=== PATIENT | male | born 1945 | race Caucasian/White ===

== ENCOUNTER 2017-09-05 09:44 | Outpatient (CLI) | payer OTHER ==
--- NOTE | 2017-09-05 19:47 | XRAY Report ---
DATE OF SERVICE: 09/05/2017 THREE VIEW LUMBAR SPINE: 09/05/2017 CLINICAL INDICATION: Pain. AP, lateral, coned-down views of the lumbar spine demonstrate moderate degenerative disk and facet disease. There is no evidence of fracture or subluxation. Mild levoscoliosis is present, likely degenerative in etiology. Surgical clips from previous cholecystectomy are noted. The bowel gas pattern is normal. IMPRESSION: Moderate degenerative changes, with mild degenerative levoscoliosis. TD: 09/05/2017 20:46
== END 2017-09-05 09:45 | disposition home or self-care (01) ==
LOC: DI 09:44
PROVIDERS: ATTEND Nurse Practitioner Family
DX: M47.896 Other spondylosis, lumbar region (principal); M41.86 Other forms of scoliosis, lumbar region
CPT/HCPCS: 72100

== ENCOUNTER 2017-09-21 09:28 | Outpatient (CLI) | payer OTHER ==
[2017-09-21] MEDS ORDERED: IOPAMIDOL-300 100 ML VIAL ONE (10:11)
[2017-09-21 10:32] LABS: CREATININE 0.8 mg/dL (0.6-1.2)
[2017-09-21] MEDS ORDERED: IOPAMIDOL-300 100 ML VIAL IVP ONE (10:51)
--- NOTE | 2017-09-21 15:58 | CT Report ---
CT OF THE ABDOMEN AND PELVIS WITH CONTRAST: 09/21/2017 CLINICAL INDICATION: Hematuria, history of bladder cancer. TECHNIQUE: Axial CT images of the abdomen and pelvis were obtained prior to and following 100 mL Isovue 300 intravenously, using split bolus technique. No previous CT is available for comparison. FINDINGS: Limited evaluation of the lung bases is unremarkable. ABDOMEN: On the unenhanced images, there is no evidence of nephrolithiasis or hydronephrosis. The kidneys demonstrate symmetric uptake and excretion of contrast, left greater than right renal cysts are present. No solid renal lesion or collecting system lesion is seen. The liver, spleen, pancreas and adrenal glands are unremarkable, allowing for phase of contrast enhancement. The patient is status post cholecystectomy. No bowel dilatation, free gas, or free fluid is present. No abdominal adenopathy is seen. PELVIS: The distal ureters are not dilated. Sigmoid diverticulosis is present, without CT evidence of diverticulitis. The appendix is seen in the right lower quadrant, and is normal in caliber. No free fluid or pelvic adenopathy is present. Osseous structures demonstrate degenerative changes. IMPRESSION: NO EVIDENT ETIOLOGY FOR PATIENT'S HEMATURIA. CONSIDER CYSTOSCOPY FOR FURTHER EVALUATION. In accordance with CT protocol optimization, one or more of the following dose reduction techniques were utilized for this exam: automated exposure control, adjustment of mA and/or KV based on patient size, or use of iterative reconstructive technique. TD: 09/21/2017 15:58
== END 2017-09-21 09:29 | disposition home or self-care (01) ==
LOC: LAB 09:28
PROVIDERS: ATTEND Nurse Practitioner Family
DX: R31.9 Hematuria, unspecified (principal); Z85.51 Personal history of malignant neoplasm of bladder
CPT/HCPCS: 36415; 74178; 82565; Q9967

== ENCOUNTER 2017-11-02 06:51 | Outpatient (CLI) | payer OTHER ==
[2017-11-02 07:13] LABS: CREATININE 0.9 mg/dL (0.6-1.2)
[2017-11-02] MEDS ORDERED: IOPAMIDOL-300 50 ML VIAL ONE (07:26)
[2017-11-02] MEDS ORDERED: IOPAMIDOL-300 100 ML VIAL ONE (07:26)
[2017-11-02] MEDS ORDERED: IOPAMIDOL-300 50 ML VIAL PO ONE (08:43)
[2017-11-02] MEDS ORDERED: IOPAMIDOL-300 100 ML VIAL IVP ONE (08:43)
--- NOTE | 2017-11-02 09:38 | CT Report ---
CT ABDOMEN AND PELVIS WITH CONTRAST: 11/02/2017 CLINICAL INDICATION: Left abdominal pain. COMPARISON: 09/21/2017. TECHNIQUE: Axial CT images of the abdomen and pelvis were obtained with 100 mL Isovue 300 intravenously as well as oral contrast. FINDINGS: Limited evaluation of the lung bases is unremarkable. ABDOMEN: The liver, spleen, pancreas and adrenal glands are unremarkable. The kidneys demonstrate cortical cysts. No nephrolithiasis or hydronephrosis is seen. The patient is status post cholecystectomy. No bowel dilatation, free gas, or free fluid is present. PELVIS: Sigmoid diverticulosis is present, without CT evidence of diverticulitis. No pelvic adenopathy or free fluid is present. Osseous structures demonstrate degenerative changes. IMPRESSION: DIVERTICULOSIS, WITHOUT CT EVIDENCE OF DIVERTICULITIS. NO EVIDENT ETIOLOGY FOR PATIENT'S LEFT-SIDED ABDOMINAL PAIN. INCIDENTAL RENAL CYSTS. CT DOSE REDUCTION STATEMENT In accordance with CT protocol optimization, one or more of the following dose reduction techniques were utilized for this exam: automated exposure control, adjustment of mA and/or KV based on patient size, or use of iterative reconstructive technique. TD: 11/02/2017 09:37
== END 2017-11-02 06:52 | disposition home or self-care (01) ==
LOC: LAB 06:51 → DI 06:52
PROVIDERS: ATTEND Nurse Practitioner Family
DX: R10.9 Unspecified abdominal pain (principal); K57.30 Diverticulosis of large intestine without perforation or abscess without bleeding
CPT/HCPCS: 36415; 74177; 82565; Q9967

== ENCOUNTER 2018-01-24 08:45 | Day surgery (SDC) | payer OTHER ==
[2018-01-24] MEDS ORDERED: LACTATED RINGERS 1,000 ML IV ONE ×2 (09:07→10:51)
[2018-01-24] MEDS ORDERED: MIDAZOLAM 2 MG/2 ML VIAL IVP ONE (10:32)
[2018-01-24] MEDS ORDERED: fentaNYL 250 MCG/5 ML VIAL IVP ONE (10:32)
[2018-01-24] MEDS ORDERED: DEXTROSE 5%-LACTATED RINGERS 500 ML IV ONE (10:33)
[2018-01-24 11:47] VITALS: BP 143/76
== END 2018-01-24 08:46 | disposition home or self-care (01) ==
LOC: SDS 08:45
PROVIDERS: ATTEND Internal Medicine
PROC: 0DBN8ZX Excision of Sigmoid Colon, Via Natural or Artificial Opening Endoscopic, Diagnostic (ICD-10-PCS; 2018-01-24)
PROC: 0DBH8ZX Excision of Cecum, Via Natural or Artificial Opening Endoscopic, Diagnostic (ICD-10-PCS; principal; 2018-01-24 10:00)
DX: Z12.11 Encounter for screening for malignant neoplasm of colon (principal); D12.5 Benign neoplasm of sigmoid colon; D12.0 Benign neoplasm of cecum; K57.30 Diverticulosis of large intestine without perforation or abscess without bleeding; K64.8 Other hemorrhoids; E11.9 Type 2 diabetes mellitus without complications; I10 Essential (primary) hypertension; G47.33 Obstructive sleep apnea (adult) (pediatric); Z79.01 Long term (current) use of anticoagulants; Z87.891 Personal history of nicotine dependence; Z79.84 Long term (current) use of oral hypoglycemic drugs
CPT/HCPCS: 45385; J3010; J7120

== ENCOUNTER 2018-02-02 08:04 | Outpatient (CLI) | payer OTHER ==
--- NOTE | 2018-02-02 12:01 | CT Report ---
Procedure Date: 02/02/2018 Accession Number: [id number] / [id number] Procedure: CT - Sinuses CPT Code: FULL RESULT: EXAM: Sinuses DATE: 02/02/2018 8:39 AM CLINICAL HISTORY: CHRONIC SINUSITIS, UNSPECIFIED COMPARISON: Head CT 08/21/2010 TECHNIQUE: Routine multi-axial CT imaging performed through the sinuses. Iodinated IV contrast: None. Reconstructions: Coronal. In accordance with CT protocol optimization, one or more of the following dose reduction techniques were utilized for this exam: automated exposure control, adjustment of mA and/or KV based on patient size, or use of iterative reconstructive technique. FINDINGS: RIGHT Frontal: Mucosal thickening. Ethmoid: Mucosal thickening. Maxillary: Mucosal thickening. Sphenoid: Mucosal thickening, with an air-fluid level. Drainage Pathways: Barkley opacification of drainage pathways. LEFT Frontal: Mucosal thickening. Ethmoid: Mucosal thickening. Maxillary: Mucosal thickening. Sphenoid: Complete opacification. Drainage Pathways: Barkley opacification of drainage pathways. Nasal Cavity: Normal. No mass or significant anatomic abnormality evident. Osseous Structures: Normal. Orbits: Unremarkable. Other: None. IMPRESSION: Pansinusitis. RADIA
== END 2018-02-02 08:05 | disposition home or self-care (01) ==
LOC: DI 08:04
PROVIDERS: ATTEND Nurse Practitioner Family
DX: J32.4 Chronic pansinusitis (principal)
CPT/HCPCS: 70486

== ENCOUNTER 2018-05-09 09:30 | Outpatient (CLI) | payer MEDICARE, OTHER | END 2018-05-09 09:31 | disposition home or self-care (01) | LOC: LAB.F 09:30 | PROVIDERS: ATTEND Family Medicine | DX: I48.91 Unspecified atrial fibrillation (principal) | CPT/HCPCS: 85610 ==

== ENCOUNTER 2018-06-08 11:14 | Outpatient (CLI) | payer MEDICARE | END 2018-06-08 11:15 | disposition home or self-care (01) | LOC: LAB.F 11:14 | PROVIDERS: ATTEND Family Medicine | DX: I48.91 Unspecified atrial fibrillation (principal) | CPT/HCPCS: 85610 ==

== ENCOUNTER 2018-12-07 12:15 | Outpatient (CLI) | payer MEDICARE, OTHER ==
--- NOTE | 2018-12-07 12:52 | XRAY Report ---
Reason: ACUTE RESPIRATORY DISTRESS Procedure Date: 12/07/2018 Accession Number: [id number] / [id number] Procedure: XR - Chest 2 View X-Ray CPT Code: 83809 FULL RESULT: EXAM: CHEST RADIOGRAPHY EXAM DATE: 12/07/2018 12:27 PM. CLINICAL HISTORY: Short of breath COMPARISON: 02/15/2013. TECHNIQUE: 2 views. FINDINGS: Lungs/Pleura: Minor scarring left base stable. Lungs otherwise clear. An azygos lobe is present. No pleural effusion. No pneumothorax. Normal volumes. Mediastinum: Heart mildly enlarged in size. Other: Degenerative change in the spine. Surgical clips upper abdomen. IMPRESSION: No acute findings. Clear lungs. RADIA
== END 2018-12-07 12:16 | disposition home or self-care (01) ==
LOC: DI 12:15
PROVIDERS: ATTEND Internal Medicine
DX: R06.03 Acute respiratory distress (principal)
CPT/HCPCS: 71046

== ENCOUNTER 2018-12-11 09:30 | Outpatient (CLI) | payer MEDICARE, OTHER ==
[2018-12-11] MEDS ORDERED: ALBUTEROL NEB 2.5 MG/3 ML INH SCH (10:00)
== END 2018-12-11 23:59 | disposition home or self-care (01) ==
LOC: RT 09:30
PROVIDERS: ATTEND Nurse Practitioner Family
DX: J45.909 Unspecified asthma, uncomplicated (principal)
CPT/HCPCS: 94060

== ENCOUNTER 2019-01-08 10:36 | Outpatient (CLI) | payer MEDICARE | END 2019-01-08 10:37 | disposition home or self-care (01) | LOC: LAB.F 10:36 | PROVIDERS: ATTEND Family Medicine | DX: I48.91 Unspecified atrial fibrillation (principal) | CPT/HCPCS: 85610 ==

== ENCOUNTER 2019-10-14 09:45 | Outpatient (CLI) | payer MEDICARE, OTHER | END 2019-10-14 09:46 | disposition home or self-care (01) | LOC: NS 09:45 | PROVIDERS: ATTEND Family Medicine | DX: Z71.3 Dietary counseling and surveillance (principal); E11.65 Type 2 diabetes mellitus with hyperglycemia | CPT/HCPCS: 97802 ==

== ENCOUNTER 2019-12-27 09:49 | Outpatient (CLI) | payer MEDICARE, OTHER ==
[2019-12-27] MEDS ORDERED: IOVERSOL 320 100 ML VIAL IVP ONE ×2 (09:59→10:54)
[2019-12-27 10:13] LABS: CREATININE 0.9 mg/dL (0.6-1.2)
--- NOTE | 2019-12-30 08:57 | CT Report ---
Reason: HISTORY OF GROSS HEMATURIA Procedure Date: 12/27/2019 Accession Number: [id number] / [id number] Procedure: CT - IVP CPT Code: Final Report FULL RESULT: EXAM: CT ABDOMEN AND PELVIS WITHOUT AND WITH CONTRAST (CT IVP) EXAM DATE: 12/27/2019 11:09 AM. CLINICAL HISTORY: Intermittent gross hematuria. History of bladder cancer. COMPARISONS: CT of the abdomen and pelvis from 11/02/2017, CT IVP from 09/21/2017. TECHNIQUE: Routine helical imaging was performed through the kidneys, ureters and bladder in the precontrast and combined postcontrast and delayed phase. IV Contrast: 100 cc Optiray 320 administered in split bolus fashion. Reconstructions: Coronal and sagittal. In accordance with CT protocol optimization, one or more of the following dose reduction techniques were utilized for this exam: automated exposure control, adjustment of mA and/or KV based on patient size, or use of iterative reconstructive technique. FINDINGS: Lung Bases: A 4 mm nodule in the right lower lobe (series 7, image 12) has not significantly changed. Mild linear opacities are present in the lung bases, most compatible with atelectasis or scarring. Liver: Unremarkable. No focal lesions are demonstrated. Gallbladder/Bile Ducts: Gallbladder is surgically absent. Caliber of the bile ducts is within normal limits. Spleen: There is a 9 mm ovoid hypoattenuating lesion in the lateral aspect of the spleen (series 7, image 15), not significantly changed and most compatible with a cyst. Spleen is otherwise unremarkable. Pancreas: Small calcification in the pancreatic head has not significantly changed. Pancreas is otherwise unremarkable. No dilation of the main pancreatic duct. Adrenal Glands: No nodules. Kidneys/Bladder: Right Kidney/Ureter: No urolithiasis or hydronephrosis. There are multiple renal cysts. This includes a 1.9 cm Bosniak 2 cyst in the medial lower pole (series 7, image 39), demonstrating thin septations. No solid renal mass demonstrated. The infundibula of the renal collecting system is not well opacified. However, there is no calyceal dilation to suggest obstructing infundibular mass. No filling defects in the opacified portions of the renal collecting system or ureter. Left Kidney/Ureter: No urolithiasis or hydronephrosis. There are multiple cysts. The largest arises exophytically from the lower pole, measuring 11.3 x 9.0 cm (series 7, image 41), previously 10.6 x 9.2 cm. No solid renal mass demonstrated. There is an area of renal parenchymal volume loss in the interpolar region, which is not significantly changed. There is a short segment of the proximal ureter, which is not well opacified (series 7, image 45). In addition, multiple infundibula are not well opacified. No filling defects in the opacified portions of the renal collecting system or ureter. Bladder: No bladder calculi demonstrated. There is mild concentric bladder wall thickening. In the right posterior bladder wall, there is suggestion of a sessile, 1.1 x 0.4 cm filling defect (series 7, image 75 and series 10, image 40), which is not significantly changed from the prior examination. This is adjacent to the prostate and may represent component of median lobe hypertrophy. No areas of definite asymmetric bladder wall thickening demonstrated. Peritoneal Cavity/Bowel: No evidence of bowel obstruction or inflammation. The appendix is within normal limits. There is diverticulosis, greatest in the sigmoid colon, without evidence for acute diverticulitis. A fat-containing umbilical hernia is present. Pelvic Organs: Bladder findings are as described above. Prostate is enlarged, measuring approximately 5.7 x 5.2 x 5.7 cm (series 7, image 82 and series 10, image 38) for an estimated volume of 88.5 cc. No pelvic adenopathy or free fluid. Vasculature: Atherosclerotic calcification of the abdominal aorta is demonstrated. No abdominal aortic aneurysm. Bones: No suspicious osseous lesion. Other: There appears to be mild stranding in the subcutaneous tissues adjacent to the umbilical hernia. IMPRESSION: 1. Concentric bladder wall thickening, which may represent sequela of chronic outflow restriction given prostatomegaly. 2. No significant change in sessile filling defect in the right posterior bladder wall since 2018. This is adjacent to the prostate and could represent component of median lobe hypertrophy. Note that bladder neoplasm cannot be excluded by CT. Given the clinical history, cystoscopy could be considered for further evaluation, if not recently performed. 3. Portions of the infundibula of bilateral renal collecting systems and a short segment of the left proximal ureter are not well opacified on the delayed phase. Could consider retrograde examination at the time of cystoscopy. Otherwise, no filling defects demonstrated elsewhere in the renal collecting systems or ureters to suggest upper tract urothelial neoplasm. 4. Benign bilateral renal cysts. No evidence of solid renal mass. 5. Mild stranding in the subcutaneous tissues around a small fat-containing umbilical hernia. Suggest correlation with clinical examination to exclude cellulitis or incarcerated hernia. RADIA
== END 2019-12-27 09:50 | disposition home or self-care (01) ==
LOC: DI 09:49
PROVIDERS: ATTEND Urology
DX: N40.0 Benign prostatic hyperplasia without lower urinary tract symptoms (principal); R31.0 Gross hematuria; N32.89 Other specified disorders of bladder; K42.9 Umbilical hernia without obstruction or gangrene; N28.1 Cyst of kidney, acquired; Z85.51 Personal history of malignant neoplasm of bladder
CPT/HCPCS: 36415; 74178; 82565; 84520; Q9967

== ENCOUNTER 2020-07-21 18:44 | Emergency (ER) | payer MEDICARE, OTHER ==
[2020-07-21] MEDS ORDERED: HYDROcod/ACETAM 5/325 MG TABLET PO STA (19:17)
--- NOTE | 2020-07-21 19:20 | ED Physician Documentation ---
History of Present Illness - Stated complaint Stated Complaint: RT ANKLE INJ - Chief complaint Chief Complaint: Trauma Ext - History obtained from History obtained from: Patient - History of Present Illness Timing: Prior to arrival - Additonal information Additional information: 74-year-old male presents emergency department for evaluation of acute right ankle pain and injury. He reports walking his dog this afternoon on a trail and slipped twisting/inverting the right ankle. He had pain with weightbearing since then and fairly significant ecchymosis on the lateral side of the ankle. No history of previous injury to this foot or ankle. He does have a history of coronary artery disease. Also has a history of atrial fibrillation. He is status post recent two-vessel CABG. He is on Plavix and a novel anticoagulant. He denies striking his head or losing consciousness. Review of Systems Constitutional: reports: Reviewed and negative Ears: reports: Reviewed and negative Nose: reports: Reviewed and negative Throat: reports: Reviewed and negative Cardiac: reports: Reviewed and negative Respiratory: reports: Reviewed and negative GI: reports: Reviewed and negative : reports: Reviewed and negative Skin: reports: Reviewed and negative Musculoskeletal: reports: Joint pain (right ankle), Joint swelling (right ankle) Neurologic: reports: Reviewed and negative PD PAST MEDICAL HISTORY - Past Medical History Cardiovascular: Hypertension, Coronary artery disease, Arrhythmia, Other Respiratory: Asthma, Sleep apnea, Other Endocrine/Autoimmune: Type 2 diabetes : Other - Past Surgical History Past Surgical History: Yes General: Cholecystectomy Ortho: Arthroscopic surgery Cardiovascular: Coronary stent HEENT: Other - Present Medications Home Medications: Ambulatory Orders Medication Instructions Recorded Confirmed Amlodipine Besylate 10 mg PO DAILY 02/15/13 07/21/20 Doxazosin [Cardura] 4 mg PO DAILY 02/15/13 07/21/20 Metformin HCl 1,000 mg PO BID 02/15/13 07/21/20 Albuterol [Ventolin Hfa] 2 puffs INH Q4H PRN #1 inhaler 01/10/14 07/21/20 Beclomethasone 80 Mcg [Qvar 80] 100 puffs INH BID 01/23/18 07/21/20 Cholecalciferol (Vitamin D3) 2,000 unit PO DAILY 01/23/18 07/21/20 [Vitamin D] Fluticasone Propionate [Flovent 50 mcg IH BID 01/23/18 07/21/20 Diskus] LORazepam [Lorazepam] 0.5 mg PO BID PRN 01/23/18 07/21/20 Metoprolol Tartrate 25 mg PO BID 01/23/18 07/21/20 Potassium Citrate [Potassium 5 meq PO DAILY 01/23/18 07/21/20 Citrate ER] lisinopriL [Lisinopril] 20 mg PO DAILY 01/23/18 07/21/20 Apixaban [Eliquis] 5 mg PO BID 07/21/20 07/21/20 Clopidogrel [Plavix] 75 mg PO DAILY 07/21/20 07/21/20 Flunisolide 2 sprays BID 07/21/20 07/21/20 Hydrocodone/Acetaminophen [[place]wood 1 each PO TID PRN #15 tablet 07/21/20 5-325 Tablet] Insulin Glargine [Lantus Solostar] 10 unit HS 07/21/20 07/21/20 Magnesium Oxide [Magnesium] 100 mg PO BID 07/21/20 07/21/20 Prednisone [Corine] 8 mg PO PRN 07/21/20 - Allergies Allergies/Adverse Reactions: Allergies Allergy/AdvReac Type Severity Reaction Status Date / Time zolpidem Allergy Anaphylaxis Verified 07/21/20 18:50 licorice Allergy Severe Anaphylaxis Uncoded 01/23/18 14:15 glycyrrhiza Allergy Anaphylaxis Uncoded 01/23/18 14:15 - Social History Does the pt smoke?: No Smoking Status: Former smoker Does the pt drink ETOH?: Yes Does the pt have substance abuse?: No - Immunizations Immunizations are current?: No Immunizations: TDAP >10years/unknown PD ED PE EXPANDED - General General: Alert, No acute distress, Well developed/nourished - Extremities Extremities: Right ankle (Significant swelling and ecchymosis lateral malleolus without deformity. Limited forward flexion and extension secondary to pain. Most of the pain is proximal to the malleolus. Distal DP pulse 2+. Brisk cap refill.) Results - Vitals Vitals: Vital Signs - 24 hr 07/21/20 18:50 Temperature 37.2 C Heart Rate 81 Respiratory 18 Rate Blood Pressure 170/82 H O2 Saturation 97 Oxygen O2 Source Room air - Rads (name of study) right ankle Radiology: EMP read indepedently (Minimally displaced distal fibular fracture) PD MEDICAL DECISION MAKING - ED course Complexity details: reviewed results, re-evaluated patient, considered differential, d/w patient ED course: 74-year-old male presents the emergency department for evaluation of acute right ankle injury after an inversion injury and fall this afternoon. He does have a history of coronary artery disease status post recent CABG as well as atrial fibrillation on Plavix and Eliquis. He did not strike his head or lose consciousness. The x-ray of the right ankle does show a mildly displaced right fibular fracture. This gentleman was placed in a 3 sided short leg splint appropriate return precautions with regard to the splint being too tight or concerns of infection were discussed. This gentleman was referred to orthopedics upon discharge and given crutches to aid in ambulation. He did have safe gait with the crutches. Departure - Departure Disposition: 01 Home, Self Care Clinical Impression: Right fibular fracture Qualifiers: Encounter type: initial encounter Fibula location: distal physis (incl. [place]) Fracture alignment: displaced Qualified Code(s): S89.301A - Unspecified physeal fracture of lower end of right fibula, initial encounter for closed fracture Condition: Stable Record reviewed to determine appropriate education?: Yes Instructions: ED Fx Lower Ext Follow-Up: [facility] [Provider Group] - Within 1 week Abram Guardado MD [Primary Care Provider] - Prescriptions: Hydrocodone/Acetaminophen [Pinewood 5-325 Tablet] 1 each PO TID PRN #15 tablet PRN Reason: Pain Comments: Mikel unfortunately the x-ray does show that you have a fibula fracture on your right lower leg. We have placed you in a temporary splint. The splint cannot get wet. If it does get wet please return to the emergency department to have it replaced. Also return to the emergency department for a splint recheck if you find that your feet are cold to the touch, lose sensation or you develop any fevers. I have prescribed some hydrocodone to help with pain at home. Please elevate this leg as much as you can to help reduce swelling and in turn pain. The hydrocodone will cause constipation so please increase your water intake or begin taking MiraLAX. Please call the orthopedics department tomorrow to schedule follow-up within the next 7 to 10 days. I would also like you to schedule follow-up with Dr. Guardado. He will be helpful in the long-term with regards to pain management and referral to physical therapy.
--- NOTE | 2020-07-21 19:43 | XRAY Report ---
PROCEDURE: Ankle 3 View RT INDICATIONS: inversion injury; swelling laterally TECHNIQUE: 3 views of the ankle were acquired. COMPARISON: None FINDINGS: Bones: There is fragmentation at the distal medial malleolus appearing chronic. There is a minimally displaced distal fibular fracture. Ankle mortise is normally aligned. No suspicious bony lesions. Soft tissues: Lateral malleolar soft tissue edema is present.. Achilles tendon appears normal. IMPRESSION: Minimally displaced distal fibular fracture with surrounding edema. Reviewed by: Sharda Dasilva MD on 07/21/2020 7:42 PM PST Approved by: Sharda Dasilva MD on 07/21/2020 7:42 PM PST Station ID: [id number]
[2020-07-21 20:50] VITALS: BP 148/98
== END 2020-07-21 20:50 | disposition home or self-care (01) ==
LOC: ED 18:44
DX: S89.301A Unspecified physeal fracture of lower end of right fibula, initial encounter for closed fracture (principal); X50.1XXA Overexertion from prolonged static or awkward postures, initial encounter; Y93.31 Activity, mountain climbing, rock climbing and wall climbing; Y92.838 Other recreation area as the place of occurrence of the external cause; I48.91 Unspecified atrial fibrillation; Z79.01 Long term (current) use of anticoagulants; Z95.1 Presence of aortocoronary bypass graft; I10 Essential (primary) hypertension; E11.9 Type 2 diabetes mellitus without complications; Z79.4 Long term (current) use of insulin; Z87.891 Personal history of nicotine dependence
CPT/HCPCS: 73610; 99283; A9270

== ENCOUNTER 2020-08-06 17:32 | Outpatient (CLI) | payer MEDICARE, OTHER ==
--- NOTE | 2020-08-06 11:58 | XRAY Report ---
PROCEDURE: Ankle 3 View RT INDICATIONS: NONDISPLACED BIMALLEOLAR FX OF R LOWER LEG TECHNIQUE: 3 views of the ankle were acquired. COMPARISON: 07/21/2020 FINDINGS: Bones: Mildly displaced oblique fracture of the distal fibula. Mildly displaced fracture of the media l malleolus. No change in alignment. Ankle mortise is normally aligned. No suspicious bony lesions. Soft tissues: No tibiotalar joint effusion. Achilles tendon appears normal. IMPRESSION: No change in bimalleolar ankle fracture. Reviewed by: Phan John MD on 08/06/2020 11:57 AM PST Approved by: Phan John MD on 08/06/2020 11:57 AM PST Station ID: [id number]
== END 2020-08-06 23:59 | disposition home or self-care (01) ==
LOC: DI.N 17:32
PROVIDERS: ATTEND Orthopaedic Surgery
DX: S82.844A Nondisplaced bimalleolar fracture of right lower leg, initial encounter for closed fracture (principal)

== ENCOUNTER 2020-08-31 08:14 | Outpatient (CLI) | payer MEDICARE, OTHER ==
--- NOTE | 2020-08-31 14:33 | XRAY Report ---
PROCEDURE: Ankle 3 View RT INDICATIONS: NONDISPLACED BIMALLEOLAR FX OF R LOWER LEG TECHNIQUE: 3 views of the ankle were acquired. COMPARISON: 08/06/2020 FINDINGS: Bones: There is interval healing at patient's known nondisplaced distal fibular shaft/lateral malleol us oblique fracture site. Patient's no medial malleolus fracture is again seen in not significantly c hanged. No new fracture or dislocation. Ankle mortise is normally aligned. No suspicious bony lesion s. Soft tissues: No tibiotalar joint effusion. Achilles tendon appears normal. IMPRESSION: Interval further healing bimalleolar fracture site with stable and anatomic ankle alignm ent. Reviewed by: Fermin Ramirez MD on 08/31/2020 2:31 PM PST Approved by: Fermin Ramirez MD on 08/31/2020 2:31 PM PST Station ID: [id number]
== END 2020-08-31 23:59 | disposition home or self-care (01) ==
LOC: DI.N 08:14
PROVIDERS: ATTEND Orthopaedic Surgery
DX: S82.841D Displaced bimalleolar fracture of right lower leg, subsequent encounter for closed fracture with routine healing (principal)

== ENCOUNTER 2020-09-11 13:52 | Outpatient (CLI) | payer OTHER ==
--- NOTE | 2020-09-11 15:41 | CT Report ---
PROCEDURE: HEAD WO INDICATIONS: ABN GAIT AND MOBILITY TECHNIQUE: Noncontrast 4.5 mm thick angled axial sections acquired from the foramen magnum to the vertex. For r adiation dose reduction, the following was used: automated exposure control, adjustment of mA and/or kV according to patient size. COMPARISON: None. FINDINGS: Image quality: Excellent. CSF spaces: Basal cisterns are patent. No extra-axial fluid collections. Ventricles are normal in size and shape. Brain: No midline shift. No intracranial masses or hemorrhage. Bautista-white matter interface is norm al. Skull and face: Calvarium and visualized facial bones are intact, without suspicious lesions. Severe bilateral maxillary sinus disease. Bilateral sphenoid sinus disease, with possibly acute appea norma also noted. There is diffuse ethmoid air cell mucosal thickening. The mastoid air cells appear grossly clear. IMPRESSION: Severe bilateral paranasal sinusitis. CT appearance of the sphenoid sinuses raise the possibility of acute sinus disease. No acute intracranial process. Reviewed by: Kar Mcfarland MD on 09/11/2020 3:40 PM PST Approved by: Kar Mcfarland MD on 09/11/2020 3:40 PM PST Station ID: [id number]
== END 2020-09-11 13:53 | disposition home or self-care (01) ==
LOC: DI 13:52
PROVIDERS: ATTEND Nurse Practitioner Family
DX: R26.89 Other abnormalities of gait and mobility (principal); J32.9 Chronic sinusitis, unspecified

== ENCOUNTER 2020-09-26 06:53 | Outpatient (CLI) | payer OTHER ==
--- NOTE | 2020-09-26 09:34 | Ultrasound Report ---
PROCEDURE: Carotid Doppler Complete INDICATIONS: R HEMIPARESIS TECHNIQUE: Color and pulse Doppler interrogation was performed of both carotid systems, with image documentation and velocity measurements. COMPARISON: None. FINDINGS: Right side: Brachial blood pressure: 195/97 mm Hg. Common carotid artery peak systolic velocity: 85.4 cm/sec. Internal carotid artery peak systolic velocity: 59.2 cm/sec. Internal carotid artery end diastolic velocity: 13.1 cm/sec. External carotid artery peak systolic velocity: 112.8 cm/sec. ICA/CCA peak systolic ratio: 0.6 . Bautista scale imaging description: Mild calcified plaque at artery. Percent internal carotid artery stenosis: Mild, less than 50% . Vertebral artery: Flow direction is antegrade. Left side: Brachial blood pressure: 181/94 mm Hg. Common carotid artery peak systolic velocity: 67.2 cm/sec. Internal carotid artery peak systolic velocity: 74.6 cm/sec. Internal carotid artery end diastolic velocity: 19.9 cm/sec. External carotid artery peak systolic velocity: 83.7 cm/sec. ICA/CCA peak systolic ratio: 1.1 . Bautista scale imaging description: Mild calcified plaque, proximal internal carotid artery. Percent internal carotid artery stenosis: Mild, less than 50% stenosis . Vertebral artery: Flow direction is antegrade. IMPRESSION: Mild, less than 50% bilateral internal carotid artery stenosis. The estimate of stenosis included in the report of the imaging study was calculated using the NASCET method Reviewed by: Geovanny Bowling MD on 09/26/2020 9:32 AM PST Approved by: Geovanny Bowling MD on 09/26/2020 9:32 AM PST Station ID: [id number]
== END 2020-09-26 06:54 | disposition home or self-care (01) ==
LOC: DI 06:53
PROVIDERS: ATTEND Family Medicine
DX: G81.90 Hemiplegia, unspecified affecting unspecified side (principal)
CPT/HCPCS: 93880

== ENCOUNTER 2020-10-12 07:00 | Outpatient (CLI) | payer OTHER ==
--- NOTE | 2020-10-12 11:55 | XRAY Report ---
PROCEDURE: Ankle 3 View RT INDICATIONS: NONDISPLACED BIMALLEOLAR FX OF R LOWER LEG TECHNIQUE: 3 views of the ankle were acquired. COMPARISON: 08/31/2020, 08/06/2020, 07/21/2020. FINDINGS: Unchanged alignment of the lateral malleolus fracture.Alignment of the medial malleolus also appears unchanged. Tibiotalar spurring and sclerosis is present. Plantar posterior calcaneal spur. Scattered vascular calcifications. IMPRESSION: Unchanged alignment. Reviewed by: Kar Mcfarland MD on 10/12/2020 11:54 AM PST Approved by: Kar Mcfarland MD on 10/12/2020 11:54 AM PST Station ID: [id number]
== END 2020-10-12 23:59 | disposition home or self-care (01) ==
LOC: DI.N 07:00
PROVIDERS: ATTEND Orthopaedic Surgery
DX: S82.844A Nondisplaced bimalleolar fracture of right lower leg, initial encounter for closed fracture (principal)

== ENCOUNTER 2020-12-08 14:56 | Outpatient (CLI) | payer MEDICARE ==
[2020-12-08] MEDS ORDERED: GADOBUTROL 10 MMOL/10 ML VIAL ONE (15:24)
[2020-12-08] MEDS ORDERED: GADOBUTROL 10 MMOL/10 ML VIAL IVP ONE (17:28)
--- NOTE | 2020-12-08 17:28 | MRI Report ---
PROCEDURE: Brain W/WO INDICATIONS: PUPIL SPARINGTHIRD NERVE PALSY RIGHT EYE CONTRAST: IV CONTRAST: Gadavist ml: 9.5 TECHNIQUE: Noncontrast axial T1 spin echo, axial T2 fast spin echo, sagittal and axial FLAIR, coronal T2 fast sp in echo, axial gradient echo, axial diffusion and ADC through the brain. After the administration of contrast, axial and coronal T1 spin echo with fat saturation through the brain. COMPARISON: Correlation is made with the prior head CT, 09/11/2020. Correlation is also made with repo rt only (no images) from prior brain MRI 09/27/2010. FINDINGS: Image quality: Excellent. CSF spaces: Basal cisterns are patent. No extra-axial fluid collections. Ventricles are normal in size and shape. Brain: In this patient with this given history, scrutiny is given to the skull base within the regio n of the 3rd cranial nerve. To the limits of this standard protocol study, no significant abnormality can be seen. No masses or abnormal enhancement can be seen. No midline shift. No intracranial bleeds or masses. No abnormal intracranial enhancement. There is cerebral volume loss for age. There is periventricular white matter chronic small vessel ischemic c hange. The brainstem appears normal. Diffusion-weighted images demonstrate no acute ischemic insult s. No chronic ischemic insults. Normal intravascular flow voids are present. Skull and face: Calvarial marrow is normal in signal. Orbits appear normal. Sinuses: At least moderate mucosal thickening is seen within the ethmoid air cells. Moderate to promi nent mucosal thickening is seen within the frontal sinuses. There is complete opacification of the sp henoid sinuses. Moderate to prominent mucosal thickening is seen within the frontal sinuses. The medi al garcía of the maxillary sinuses and the uncinate processes have been removed. Nasal polyps can be seen. No significant abnormal fluid can be seen within the mastoid air cells or w ithin the middle ear cavities. IMPRESSION: No imaging explanation is found for the patient's presenting symptoms. Note is made of prominent paranasal sinus disease, with prior surgery and apparent underlying nasal p olyp disease. Reviewed by: Joe Vanessa MD on 12/08/2020 4:27 PM AKCHANI Approved by: Joe Vanessa MD on 12/08/2020 4:27 PM AKDT Station ID: [id number]
== END 2020-12-08 14:57 | disposition home or self-care (01) ==
LOC: DI 14:56
PROVIDERS: ATTEND Ophthalmology
DX: H49.01 Third [oculomotor] nerve palsy, right eye (principal); E78.5 Hyperlipidemia, unspecified
CPT/HCPCS: 70553; A9585; 36415; 82565

== ENCOUNTER 2020-12-08 15:07 | Outpatient (CLI) | payer MEDICARE, OTHER | END 2020-12-08 15:08 | disposition home or self-care (01) | LOC: LAB 15:07 | PROVIDERS: ATTEND Ophthalmology | DX: H49.01 Third [oculomotor] nerve palsy, right eye (principal) | CPT/HCPCS: 36415; 82565 ==

== ENCOUNTER 2021-01-01 10:45 | Outpatient (CLI) | payer MEDICARE, OTHER | END 2021-01-01 10:46 | disposition home or self-care (01) | LOC: LAB 10:45 | PROVIDERS: ATTEND Ophthalmology | DX: Z01.812 Encounter for preprocedural laboratory examination (principal); H25.11 Age-related nuclear cataract, right eye; E11.9 Type 2 diabetes mellitus without complications; Z79.4 Long term (current) use of insulin; Z20.822 Contact with and (suspected) exposure to COVID-19 ==

== ENCOUNTER 2021-01-07 06:14 | Day surgery (SDC) | payer MEDICARE, OTHER ==
[2021-01-07] MEDS ORDERED: KETOROLAC 0.45% OPHTH DROPS ONE (06:24)
[2021-01-07] MEDS ORDERED: PROPARACAINE 0.5% OPHTH DROPS 15 ML ONE (06:24)
[2021-01-07] MEDS ORDERED: LACTATED RINGERS 500 ML IV ONE ×2 (06:25→07:50)
[2021-01-07] MEDS ORDERED: CYCLOPENTOLATE 2% OPHTH DROPS 2 ML RIGHTEYE ONE (06:50)
[2021-01-07] MEDS ORDERED: PHENYLEPHRINE 2.5% OPHTH 2 ML DROPS RIGHTEYE ONE (06:50)
[2021-01-07] MEDS ORDERED: TRIAMCIN/MOXIFLOX OPHTHALMIC 0.6 ML VIAL IO ONE ×2 (06:59→09:49)
[2021-01-07] MEDS ORDERED: EPINEPHrine 1 MG/ML AMP ONE (06:59)
[2021-01-07] MEDS ORDERED: MIDAZOLAM 2 MG/2 ML VIAL ONE (06:59)
[2021-01-07] MEDS ORDERED: VANCOMYCIN OPHTHALMI 8MG/0.8ML 8 MG/0.8 ML SYRINGE IO ONE ×2 (07:00→09:50)
[2021-01-07] MEDS ORDERED: BSS/LIDOCAINE/EPINEPHRINE 1 ML SYRINGE ONE (07:00)
[2021-01-07] MEDS ORDERED: TIMOLOL 0.5% OPHTH DROPS ONE (07:00)
[2021-01-07] MEDS ORDERED: BRIMONIDINE 0.2% OPHTH DROPS 5 ML ONE (07:00)
--- NOTE | 2021-01-07 07:03 | ANESTHESIA ---
Pre-Anesthesia VS, & Labs - Diagnosis right eye cataract - Procedure right CATIOL Vital Signs: Temp Pulse Resp BP Pulse Ox 36.5 C 85 14 169/111 H 96 01/07/21 06:29 01/07/21 06:29 01/07/21 06:29 01/07/21 06:29 01/07/21 06:29 Height: 5 ft 10 in Weight (kg): 101 kg Body Mass Index: 31.9 BMI Classification: Obese - NPO >8 hours - Lab Results Lab results reviewed: Yes Home Medications and Allergies Home Medications: Ambulatory Orders Furosemide [Lasix] 20 mg PO DAILY 01/01/21 Amlodipine Besylate 10 mg PO DAILY 02/15/13 Doxazosin [Cardura] 4 mg PO DAILY 02/15/13 Metformin HCl 1,000 mg PO BID 02/15/13 Beclomethasone 80 Mcg [Qvar 80] 100 puffs INH BID 01/23/18 Cholecalciferol (Vitamin D3) [Vitamin D] 2,000 unit PO DAILY 01/23/18 LORazepam [Lorazepam] 0.5 mg PO BID PRN 01/23/18 Metoprolol Tartrate 25 mg PO BID 01/23/18 Potassium Citrate [Potassium Citrate ER] 5 meq PO DAILY 01/23/18 lisinopriL [Lisinopril] 20 mg PO DAILY 01/23/18 Apixaban [Eliquis] 5 mg PO BID 07/21/20 Clopidogrel [Plavix] 75 mg PO DAILY 07/21/20 Flunisolide 2 sprays BID 07/21/20 Insulin Glargine [Lantus Solostar] 25 unit SQ HS 07/21/20 Magnesium Oxide [Magnesium] 100 mg PO BID 07/21/20 Prednisone [Corine] 8 mg PO DAILY 07/21/20 Furosemide [Lasix] 20 mg PO DAILY 01/01/21 Allergies/Adverse Reactions: Allergies Allergy/AdvReac Type Severity Reaction Status Date / Time plague vaccine Allergy extreme Verified 01/01/21 10:31 high fever zolpidem Allergy Anaphylaxis Verified 07/21/20 18:50 licorice Allergy Severe Anaphylaxis Uncoded 01/23/18 14:15 glycyrrhiza Allergy Anaphylaxis Uncoded 01/23/18 14:15 Anes History & Medical History - Anesthetic History Anesthesia Complications: reports: No previous complications Family history of Anesthesia Complications: Denies Family history of Malignant Hyperthermia: Denies - Medical History Cardiovascular: reports: Hypertension, Coronary artery disease, Atrial fibrillation, Arrhythmia, Other Pulmonary: reports: Asthma, Shortness of breath, Sleep apnea, Other Gastrointestinal: reports: Other Urinary: reports: Other Musculoskeletal: reports: Osteoarthritis Endocrine/Autoimmune: reports: Type 2 diabetes Skin: reports: Other Smoking Status: Former smoker - Surgical History General: reports: Cholecystectomy Eyes Ears Nose Throat (EENT): reports: Other Cardiothoracic: reports: CABG, Coronary stent Urologic: reports: Bladder surgery Orthopedic: reports: Arthroscopic surgery Exam General: Alert, Oriented x3, Cooperative, No acute distress Dental: WNL Mouth Openin Fingerbreadth Neck Mobility: Normal Mallampati classification: II Plan Anesthesia Type: MAC Consent for Procedure(s) Verified and Reviewed: Yes Code Status: Attempt Resuscitation ASA classification: 3-Severe systemic disease Is this case an emergency?: No
--- NOTE | 2021-01-07 07:59 | OPERATIVE REPORT ---
Operative Report - Other Other Information/Narrative: Date of Surgery: 01/07/21 Preop Dx: Complex, visually significant cataract right eye. Complex due to small pupil requiring mechanical dilation using a Malyugin ring. This was the first cataract surgery. Postop Dx: Same Procedure: Phacoemulsification with posterior chamber intraocular lens implant right eye Surgeon: Dr. Omar Conner Anesthesia: Monitored anesthesia care Complications: None Operative Indications: This is a 75-year-old M with progressive vision loss in the right eye due to 2+ nuclear sclerotic cataract. Best corrected visual acuity was 20/30 with glare to 20/150 vision in the right eye. Indications for surgery were: - Difficulty seeing words on a computer screen - Difficulty reading - Difficulty seeing words, closed captions, or game scores on TV - Difficulty seeing street signs - Difficulty driving at night because of headlights from other vehicles - Difficulty with glare or bright lights in any situation - Decreased acuity with firearms The patient was consented at length concerning the risks and benefits of cataract surgery after which the patient expressed a desire to proceed with surgery. Operative Procedure: The patient was taken into OR#3 and placed under monitored anesthesia care. A surgical time-out was conducted confirming correct patient, correct procedure, and correct surgical site. The patient was given topical anesthesia and then prepped and draped in the usual sterile fashion. The eye was entered at the 6 and 3 oclock positions. Intracameral Shugarcaine was injected into the anterior chamber followed by a dispersive viscoelastic. A Malyugin ring was injected into the anterior chamber and engaged with the pupillary margin at four points to expand the pupil. A continuous-tear curvilinear capsulorhexis was performed. The nucleus was hydrodissected and phacoemulsified. The cortex was evacuated using automated infusion and aspiration. A cohesive viscoelastic was injected into the capsular bag and a 18.5 diopter intraocular lens was inserted into the bag. The Malyugin ring was disengaged from the pupillary margin and removed from the anterior chamber. Infusion and aspiration were used to evacuate the viscoelastic materials from the eye. The wounds were hydrated and the eye inflated to physiologic pressure using balanced salt solution. Approximately 0.25ml of a mixture of triamcinolone and moxifloxacin was injected trans-sclerally into the vitreous in the inferotemporal quadrant using a 30 gauge cannula. An additional 0.25ml of a mixture of triamcinolone, moxifloxacin, and vancomycin was injected subconjunctivally in the superior quadrant for infection and inflammation prophylaxis. Wound integrity was checked with Weck-Kathi sponges. The patient was taken from the operating room in good condition and given post-op instructions.
[2021-01-07 08:00] VITALS: BP 181/100
[2021-01-07] MEDS ORDERED: BRIMONIDINE 0.2% OPHTH DROPS 5 ML OPTH ONE (09:48)
[2021-01-07] MEDS ORDERED: EPINEPHrine 1 MG/ML AMP IR ONE (09:48)
[2021-01-07] MEDS ORDERED: TIMOLOL 0.5% OPHTH DROPS OPTH ONE (09:49)
[2021-01-07] MEDS ORDERED: CHONDR SULF/HYALURONATE SYRINGE IO ONE (09:49)
[2021-01-07] MEDS ORDERED: BSS/LIDOCAINE/EPINEPHRINE 1 ML SYRINGE IO ONE (09:49)
[2021-01-07] MEDS ORDERED: PROPARACAINE 0.5% OPHTH DROPS 15 ML EACHEYE ONE (09:50)
--- NOTE | 2021-01-07 12:46 | ANESTHESIA POST OP EVALUATION ---
Anesthesia Post Eval - Post Anesthesia Eval Vitals: Last Vital Signs Temp 36.7 C 01/07/21 07:47 Pulse 60 01/07/21 07:59 Resp 18 01/07/21 07:59 BP 181/100 H 01/07/21 07:59 Pulse Ox 96 01/07/21 07:59 CV Function Including HR & BP: Stable Pain Control: Satisfactory Nausea & Vomiting: Negative Mental Status: Baseline Respiratory Status: Airway Patent Hydration Status: Satisfactory Anesthesia Complications: None
== END 2021-01-07 06:15 | disposition home or self-care (01) ==
LOC: SDS 06:14
PROVIDERS: ATTEND Ophthalmology
DX: E11.36 Type 2 diabetes mellitus with diabetic cataract (principal); H25.11 Age-related nuclear cataract, right eye; G47.33 Obstructive sleep apnea (adult) (pediatric); N40.0 Benign prostatic hyperplasia without lower urinary tract symptoms; Z79.899 Other long term (current) drug therapy; E66.9 Obesity, unspecified; Z68.31 Body mass index [BMI] 31.0-31.9, adult; Z87.891 Personal history of nicotine dependence; Z79.4 Long term (current) use of insulin; I25.10 Atherosclerotic heart disease of native coronary artery without angina pectoris
CPT/HCPCS: 66982; A9270; J3490; J7120

== ENCOUNTER 2021-03-26 09:20 | Emergency (ER) | payer MEDICARE, OTHER ==
--- NOTE | 2021-03-26 10:06 | ED Physician Documentation ---
PD HPI Fall - Stated complaint Stated Complaint: GLF - BODY PX - Chief complaint Chief Complaint: General - History obtained from History obtained from: Patient, Family - History of Present Illness Mechanism of injury: Syncope Fall distance: Standing position Where injury occurred: Home Timing - onset: How many days ago (2) Injury(ies) location: Chest, Back Quality of pain: Pain Associated symptoms: AMS. No: Seizures, Ear drainage, Nasal drainage, Neck pain, Weakness, Paresthesias, Dyspnea, Nausea / vomiting, Hematemesis, Abdominal distension Symptoms improve with: Rest Worsens with: Movement, Palpation Contributing factors: Anticoagulated Similar symptoms before: Diagnosis (fall contusion ankle fracture.) Recently seen: Not recently seen - Additional information Additional information: 75-year-old male with a history of coronary artery disease was in his home 3 nights ago when he went to go to the bathroom he has a lapse of memory for exactly what happened his was in the bathroom he called her into the bathroom and he had a syncopal episode falling against the wall. He denies any chest pain associated with this but has no real recollection of the incident itself or the time surrounding it. Today he has come to the emergency department with persistence of right-sided chest wall pain. Review of Systems Constitutional: denies: Fever Eyes: denies: Decreased vision Ears: denies: Ear pain Nose: denies: Congestion Throat: denies: Sore throat Cardiac: reports: Chest pain / pressure. denies: Palpitations Respiratory: denies: Dyspnea, Cough GI: denies: Abdominal Pain, Nausea, Vomiting, Diarrhea : denies: Dysuria, Frequency Skin: denies: Rash Musculoskeletal: reports: Back pain. denies: Neck pain, Extremity pain Neurologic: reports: Confused. denies: Generalized weakness, Focal weakness, Numbness PD PAST MEDICAL HISTORY - Past Medical History Cardiovascular: Hypertension, Coronary artery disease, Atrial fibrillation, Arrhythmia, Other Respiratory: Asthma, Shortness of breath, Sleep apnea, Other Endocrine/Autoimmune: Type 2 diabetes GI: Other : Other HEENT: Chronic vision loss, Chronic hearing loss, Other Psych: Anxiety, Panic attacks, Post traumatic stress disorder Musculoskeletal: Osteoarthritis Derm: Other - Past Surgical History Past Surgical History: Yes General: Cholecystectomy Ortho: Arthroscopic surgery Cardiovascular: CABG, Coronary stent HEENT: Other - Present Medications Home Medications: Ambulatory Orders Medication Instructions Recorded Confirmed Amlodipine Besylate 10 mg PO DAILY 02/15/13 03/26/21 Doxazosin [Cardura] 4 mg PO DAILY 02/15/13 03/26/21 Metformin HCl 1,000 mg PO BID 02/15/13 03/26/21 Albuterol [Ventolin Hfa] 2 puffs INH Q4H PRN #1 inhaler 01/10/14 03/26/21 Cholecalciferol (Vitamin D3) 2,000 unit PO DAILY 01/23/18 03/26/21 [Vitamin D] LORazepam [Lorazepam] 0.5 mg PO BID PRN 01/23/18 03/26/21 Metoprolol Tartrate 25 mg PO BID 01/23/18 03/26/21 Potassium Citrate [Potassium 5 meq PO DAILY 01/23/18 03/26/21 Citrate ER] lisinopriL [Lisinopril] 20 mg PO DAILY 01/23/18 03/26/21 Apixaban [Eliquis] 5 mg PO BID 07/21/20 03/26/21 Clopidogrel [Plavix] 75 mg PO DAILY 07/21/20 03/26/21 Flunisolide 2 sprays BID 07/21/20 03/26/21 Insulin Glargine [Lantus Solostar] 25 unit SQ HS 07/21/20 03/26/21 Magnesium Oxide [Magnesium] 100 mg PO HS 07/21/20 03/26/21 Prednisone [Corine] 10 mg PO DAILY 07/21/20 03/26/21 Furosemide [Lasix] 20 mg PO DAILY 01/01/21 03/26/21 HYDROcod/ACETAM 5/325 [[place] 5/325] 1 - 2 tablet PO Q6H PRN #14 tablet 03/26/21 - Allergies Allergies/Adverse Reactions: Allergies Allergy/AdvReac Type Severity Reaction Status Date / Time plague vaccine Allergy extreme Verified 03/26/21 09:43 high fever zolpidem Allergy Anaphylaxis Verified 03/26/21 09:43 licorice Allergy Severe Anaphylaxis Uncoded 03/26/21 09:43 glycyrrhiza Allergy Anaphylaxis Uncoded 03/26/21 09:43 - Social History Does the pt smoke?: No Smoking Status: Former smoker Does the pt drink ETOH?: Yes Does the pt have substance abuse?: No - Immunizations Immunizations are current?: No Immunizations: TDAP >10years/unknown PD ED PE NORMAL - Vitals Vital signs reviewed: Yes - General General: Alert and oriented X 3, No acute distress, Well developed/nourished - HEENT HEENT: Atraumatic, PERRL, EOMI - Neck Neck: Supple, no meningeal sign, No bony TTP - Cardiac Cardiac: RRR, No murmur - Respiratory Respiratory: No respiratory distress, Other (diminished breath sounds with tenderness to the right posterior rib cage lower. ) - Abdomen Abdomen: Soft, Non tender - Back Back: No CVA TTP, No spinal TTP - Derm Derm: Normal color, Warm and dry, No rash - Extremities Extremities: No deformity, No edema - Neuro Neuro: Alert and oriented X 3, needle control cheniller 2-12 intact, No motor deficit, No sensory deficit, Normal speech Eye Opening: Spontaneous Motor: Obeys Commands Verbal: Oriented GCS Score: 15 - Psych Psych: Normal mood, Normal affect Results - Vitals Vitals: Vital Signs - 24 hr 03/26/21 03/26/21 03/26/21 09:39 10:00 10:30 Temperature 36.9 C Heart Rate 101 H 67 66 Respiratory 16 23 20 Rate Blood Pressure 162/106 H 155/77 H 170/70 H O2 Saturation 98 97 97 03/26/21 03/26/21 03/26/21 11:48 12:29 12:30 Temperature Heart Rate 55 L 61 63 Respiratory 18 13 17 Rate Blood Pressure 146/83 H 160/90 H 164/86 H O2 Saturation 94 96 95 03/26/21 03/26/21 03/26/21 12:51 14:18 17:17 Temperature Heart Rate 77 74 93 Respiratory 17 19 18 Rate Blood Pressure 156/105 H 194/107 H 180/112 H O2 Saturation 95 98 98 03/26/21 18:05 Temperature Heart Rate 117 H Respiratory 21 Rate Blood Pressure 197/114 H O2 Saturation 96 Oxygen O2 Source Room air - EKG (time done) 1013 Rate: Rate (enter#) (56) Rhythm: Atrial fibrillation QRS: LVH Ischemia: Q waves Compare to prior EKG: Changed from prior EKG (SPT 01-10-2014 the rhythm has changed to afib and LVH has developed. ) Computer interpretation: Agree with computer - Labs Labs: Laboratory Tests 03/26/21 03/26/21 03/26/21 09:40 09:46 09:46 WBC 10.5 RBC 5.09 Hgb 16.6 Hct 48.2 MCV 94.7 H MCH 32.6 H MCHC 34.4 RDW 12.9 Plt Count 213 MPV 10.0 Neut # (Auto) 8.7 H Lymph # (Auto) 1.0 L Pierce # (Auto) 0.7 Eos # (Auto) 0.1 Baso # (Auto) 0.0 Absolute Nucleated RBC 0.00 Nucleated RBC % 0.0 Sodium 140 Potassium 3.3 L Chloride 99 L Carbon Dioxide 30 Anion Gap 11.0 BUN 34 H Creatinine 1.1 Estimated GFR (MDRD) 65 L Glucose 169 H POC Whole Bld Glucose 159 H Calcium 9.3 Total Bilirubin 3.1 H AST 24 ALT 20 Alkaline Phosphatase 50 Troponin I High Sens Total Protein 7.2 Albumin 3.9 Globulin 3.3 Albumin/Globulin Ratio 1.2 Lipase 29 Urine Color Urine Clarity Urine pH Ur Specific Laurens Urine Protein Urine Glucose (UA) Urine Ketones Urine Occult Blood Urine Nitrite Urine Bilirubin Urine Urobilinogen Ur Leukocyte Esterase Urine RBC Urine WBC Ur Squamous Epith Cells Urine Bacteria Urine Mucus Ur Microscopic Review Urine Culture Comments Nasal Adenovirus (PCR) Nasal B. parapertussis DNA (PCR) Nasal Coronavir 229E PCR Nasal Coronavir HKU1 PCR Nasal Coronavir NL63 PCR Nasal Coronavir OC43 PCR Nasal Enterovir/Rhinovir PCR Nasal Influenza B PCR Nasal Influenza A PCR Nasal Parainfluen 1 PCR Nasal Parainfluen 2 PCR Nasal Parainfluen 3 PCR Nasal Parainfluen 4 PCR Nasal RSV (PCR) Nasal B.pertussis DNA PCR Nasal C.pneumoniae (PCR) Ed Human Metapneumo PCR Nasal M.pneumoniae (PCR) Nasal SARS-CoV-2 (PCR) 03/26/21 03/26/21 03/26/21 09:46 10:23 11:53 WBC RBC Hgb Hct MCV MCH MCHC RDW Plt Count MPV Neut # (Auto) Lymph # (Auto) Pierce # (Auto) Eos # (Auto) Baso # (Auto) Absolute Nucleated RBC Nucleated RBC % Sodium Potassium Chloride Carbon Dioxide Anion Gap BUN Creatinine Estimated GFR (MDRD) Glucose POC Whole Bld Glucose Calcium Total Bilirubin AST ALT Alkaline Phosphatase Troponin I High Sens 30.8 H* 26.9 H* Total Protein Albumin Globulin Albumin/Globulin Ratio Lipase Urine Color YELLOW Urine Clarity HAZY Urine pH 5.5 Ur Specific Laurens 1.020 Urine Protein TRACE Urine Glucose (UA) NEGATIVE Urine Ketones NEGATIVE Urine Occult Blood SMALL H Urine Nitrite NEGATIVE Urine Bilirubin NEGATIVE Urine Urobilinogen 0.2 (NORMAL) Ur Leukocyte Esterase NEGATIVE Urine RBC 0-5 Urine WBC 4-5 Ur Squamous Epith Cells NONE SEEN Urine Bacteria Rare Urine Mucus Few Strands Ur Microscopic Review INDICATED Urine Culture Comments NOT INDICATED Nasal Adenovirus (PCR) Nasal B. parapertussis DNA (PCR) Nasal Coronavir 229E PCR Nasal Coronavir HKU1 PCR Nasal Coronavir NL63 PCR Nasal Coronavir OC43 PCR Nasal Enterovir/Rhinovir PCR Nasal Influenza B PCR Nasal Influenza A PCR Nasal Parainfluen 1 PCR Nasal Parainfluen 2 PCR Nasal Parainfluen 3 PCR Nasal Parainfluen 4 PCR Nasal RSV (PCR) Nasal B.pertussis DNA PCR Nasal C.pneumoniae (PCR) Ed Human Metapneumo PCR Nasal M.pneumoniae (PCR) Nasal SARS-CoV-2 (PCR) 03/26/21 03/26/21 12:55 17:42 WBC RBC Hgb Hct MCV MCH MCHC RDW Plt Count MPV Neut # (Auto) Lymph # (Auto) Pierce # (Auto) Eos # (Auto) Baso # (Auto) Absolute Nucleated RBC Nucleated RBC % Sodium Potassium Chloride Carbon Dioxide Anion Gap BUN Creatinine Estimated GFR (MDRD) Glucose POC Whole Bld Glucose Calcium Total Bilirubin AST ALT Alkaline Phosphatase Troponin I High Sens 26.6 H* Total Protein Albumin Globulin Albumin/Globulin Ratio Lipase Urine Color Urine Clarity Urine pH Ur Specific [place] Urine Protein Urine Glucose (UA) Urine Ketones Urine Occult Blood Urine Nitrite Urine Bilirubin Urine Urobilinogen Ur Leukocyte Esterase Urine RBC Urine WBC Ur Squamous Epith Cells Urine Bacteria Urine Mucus Ur Microscopic Review Urine Culture Comments Nasal Adenovirus (PCR) NOT DETECTED Nasal B. parapertussis DNA (PCR) NOT DETECTED Nasal Coronavir 229E PCR NOT DETECTED Nasal Coronavir HKU1 PCR NOT DETECTED Nasal Coronavir NL63 PCR NOT DETECTED Nasal Coronavir OC43 PCR NOT DETECTED Nasal Enterovir/Rhinovir PCR NOT DETECTED Nasal Influenza B PCR NOT DETECTED Nasal Influenza A PCR NOT DETECTED Nasal Parainfluen 1 PCR NOT DETECTED Nasal Parainfluen 2 PCR NOT DETECTED Nasal Parainfluen 3 PCR NOT DETECTED Nasal Parainfluen 4 PCR NOT DETECTED Nasal RSV (PCR) NOT DETECTED Nasal B.pertussis DNA PCR NOT DETECTED Nasal C.pneumoniae (PCR) NOT DETECTED Ed Human Metapneumo PCR NOT DETECTED Nasal M.pneumoniae (PCR) NOT DETECTED Nasal SARS-CoV-2 (PCR) NOT DETECTED - Rads (name of study) ribs right Radiology: Prelim report reviewed (Impression: 1. Nondisplaced right seventh and eighth rib fractures. Bibasilar atelectasis.), EMP read indepedently, See rad report head Radiology: Prelim report reviewed (Impression: 1. Atrophy and chronic ischemic change without intracranial hemorrhage or mass-effect. Prior paranasal sinus surgery. Persistent but improving frontal sphenoid and maxillary equals), EMP read indepedently, See rad report Procedures - Bedside sono Bedside sono by EMP: With use bedside ultrasound the abdomen is imaged there is no evidence of free fluid in the right paracolic or left paracolic gutter. - IVC sono (time) 0950 Bedside IVC sono: IVC measures (cm) (1.54), Euvolemia PD MEDICAL DECISION MAKING - ED course Complexity details: reviewed old records, reviewed results, re-evaluated p atient, considered differential, d/w patient, d/w family ED course: 75-year-old diabetic male with history of coronary artery disease and has had 2 stents placed previously he has had a syncopal episode in his bathroom 2 nights ago and he has injured his back. He has 2 nondisplaced rib fractures on that side. Today his troponin is minimally elevated and a second troponin is less. A third troponin is in the same range. This low level of troponin is consistent with a leak and not with an acute event. The patient is treated with Toradol for pain control and we will provide pain control for rib fractures. The patient states that his pain is tolerable if he is not moving around and hurts to move around. He would like to go home. I have discussed with the patient admission for pain control and he definitely does not think that is necessary today. Departure - Departure Disposition: 01 Home, Self Care Clinical Impression: Right rib fracture Qualifiers: Encounter type: initial encounter Rib fracture type: multiple ribs Fracture type: closed Qualified Code(s): S22.41XA - Multiple fractures of ribs, right side, initial encounter for closed fracture Condition: Stable Instructions: ED Fx Rib Follow-Up: Abram Guardado MD [Primary Care Provider] - Prescriptions: HYDROcod/ACETAM 5/325 [[place] 5/325] 1 - 2 tablet PO Q6H PRN #14 tablet PRN Reason: Pain Discharge Date/Time: 03/26/21 19:05
[2021-03-26 10:09] LABS: BASOPHILS % (AUTO) 0.3 %; EOSINOPHILS # (AUTO) 0.1 10^3/uL (0.0-0.7); EOSINOPHILS % (AUTO) 0.7 %; HCT - HEMATOCRIT 48.2 % (42.0-52.0); HGB - HEMOGLOBIN 16.6 g/dL (14.0-18.0); LYMPHOCYTES % (AUTO) 9.2 %; MEAN CORPUSCULAR HEMOGLOBIN 32.6 pg (27.0-31.0); MEAN CORPUSCULAR HGB CONC 34.4 g/dL (32.0-36.0); MEAN CORPUSCULAR VOLUME 94.7 fL (80.0-94.0); MONOCYTES # (AUTO) 0.7 10^3/uL (0.0-1.0); MONOCYTES % (AUTO) 6.8 %; NEUTROPHILS # (AUTO) 8.7 10^3/uL (1.5-6.6); NEUTROPHILS % (AUTO) 82.5 %; PLT - PLATELET COUNT 213 10^3/uL (130-450); RED BLOOD COUNT 5.09 10^6/uL (4.70-6.10); RED CELL DISTRIBUTION WIDTH 12.9 % (12.0-15.0); WHITE BLOOD COUNT 10.5 x10^3/uL (4.8-10.8)
[2021-03-26 10:20] LABS: ALBUMIN 3.9 g/dL (3.2-5.5); ALBUMIN/GLOBULIN RATIO 1.2 (1.0-2.2); BILIRUBIN,TOTAL 3.1 mg/dL (0.2-1.0); CALCIUM 9.3 mg/dL (8.5-10.3); CREATININE 1.1 mg/dL (0.6-1.2); POTASSIUM 3.3 mmol/L (3.5-5.0); TOTAL PROTEIN 7.2 g/dL (6.7-8.2)
[2021-03-26 10:38] LABS: BILIRUBIN,URINE NEGATIVE (NEGATIVE); GLUCOSE, URINE (UA) NEGATIVE (NEGATIVE); KETONES,URINE (UA) NEGATIVE (NEGATIVE); LEUKOCYTE ESTERASE, URINE NEGATIVE (NEGATIVE); NITRITE,URINE NEGATIVE (NEGATIVE); OCCULT BLOOD,URINE SMALL (NEGATIVE); PH,URINE 5.5 PH (5.0-7.5); PROTEIN,URINE TRACE mg/dL (NEGATIVE); UROBILINOGEN,URINE 0.2 (NORMAL) E.U./dL (NORMAL)
[2021-03-26 10:40] LABS: CLARITY,URINE HAZY (CLEAR)
[2021-03-26 10:55] LABS: BACTERIA,URINE Rare /HPF (None Seen); MUCUS,URINE Few Strands; RBC,URINE 0-5 /HPF (0-5); SQUAMOUS EPITHELIAL CELL,UR NONE SEEN (<= Few)
--- NOTE | 2021-03-26 11:21 | CT Report ---
PROCEDURE: HEAD WO INDICATIONS: fall confusion, blood thinner. TECHNIQUE: Noncontrast 4.5 mm thick angled axial sections acquired from the foramen magnum to the vertex. For r adiation dose reduction, the following was used: automated exposure control, adjustment of mA and/or kV according to patient size. COMPARISON: 09/11/2020 FINDINGS: Image quality: Excellent. CSF spaces: Basal cisterns are patent. No extra-axial fluid collections. Ventricles are normal in size and shape. Brain: Moderate atrophy and multifocal white matter chronic ischemic change noted. Old left white ma tter lacunar infarct noted in the cash radiata. Coarse calcification near the right caudate tip pro bably reflects prior granulomatous disease, unchanged from the prior No midline shift. No intracrani al masses or hemorrhage. Bautista-white matter interface is normal. Skull and face: Calvarium and visualized facial bones are intact, without suspicious lesions. Right intraocular lens replacement, new from prior exam. Sinuses: Sphenoid air-fluid level has resolved interval. Bilateral maxillary and frontal retention cy sts remain unchanged. There has been prior bilateral uncinectomies and ethmoidectomies noted. IMPRESSION: 1. Atrophy and chronic ischemic change without intracranial hemorrhage or mass effect. 2. Prior paranasal sinus surgery. Persistent but improving frontal, sphenoid and maxillary equals) Reviewed by: Jay Doll MD on 03/26/2021 10:20 AM NELIDA Approved by: Jay Doll MD on 03/26/2021 10:20 AM AKCHANI Station ID: [id number]
--- NOTE | 2021-03-26 11:28 | CT Report ---
PROCEDURE: CHEST WO INDICATIONS: fall right post rib pain TECHNIQUE: Noncontrast images were acquired from the pulmonary apices to the posterior costophrenic angles. Mul tiplanar MIP reformats were then acquired. For radiation dose reduction, the following was used: au tomated exposure control, adjustment of mA and/or kV according to patient size. COMPARISON: None FINDINGS: Image quality: Excellent. Lungs and pleura: There is bibasilar atelectasis. No acute air space opacities. No pleural effusion s or pneumothorax. Central and peripheral airways are patent and normal in caliber. Mediastinum: Heart size is normal. No pericardial effusion. No mediastinal adenopathy by size crit eria. Thoracic aorta and central pulmonary arteries are normal in size. Esophagus is normal in gaudencio winston. No hiatal hernia. Bones and chest wall: The right seventh and eighth ribs are fractured posterolaterally. No suspiciou s bony lesions. No vertebral body compression fractures. No axillary or supraclavicular adenopathy by size criteria. The thyroid is normal in size and there are no incidental findings. Abdomen: Visualized upper abdominal solid organs and bowel loops appear normal in the absence of con trast. IMPRESSION: 1. Nondisplaced right seventh and eighth rib fractures. 2. Bibasilar atelectasis. Reviewed by: Abiodun Garrett on 03/26/2021 11:27 AM PDT Approved by: Abiodun Garrett on 03/26/2021 11:27 AM PDT Station ID: [id number]
[2021-03-26 14:43] LABS: B. PARAPERTUSSIS- RESP PCR PAN NOT DETECTED; B. PERTUSSIS- RESP PCR PANEL NOT DETECTED; C. PNEUMONIAE- RESP PCR PANEL NOT DETECTED; CORONAVIRUS 229E-RESP PCR NOT DETECTED; CORONAVIRUS HKU1-RESP PCR NOT DETECTED; CORONAVIRUS NL63-RESP PCR NOT DETECTED; CORONAVIRUS OC43-RESP PCR NOT DETECTED; HUMAN METAPNEUMOVIRUS NOT DETECTED; INFLUENZA A- RESP PCR PANEL NOT DETECTED; INFLUENZA B - RESP PCR PANEL NOT DETECTED; M. PNEUMONIAE- RESP PCR PANEL NOT DETECTED; PARAINFLUENZA VIRUS 1 NOT DETECTED; PARAINFLUENZA VIRUS 2 NOT DETECTED; PARAINFLUENZA VIRUS 3 NOT DETECTED; PARAINFLUENZA VIRUS 4 NOT DETECTED; RHINOVIRUS/ENTEROVIRUS NOT DETECTED; RSV- RESP PCR PANEL NOT DETECTED; SARS-CoV-2 -RESP PCR PANEL NOT DETECTED
[2021-03-26 18:06] VITALS: BP 197/114
[2021-03-26] MEDS ORDERED: KETOROLAC 30 MG/ML VIAL IVP STA (18:15)
== END 2021-03-26 19:05 | disposition home or self-care (01) ==
LOC: ED 09:20
DX: S22.41XA Multiple fractures of ribs, right side, initial encounter for closed fracture (principal); W19.XXXA Unspecified fall, initial encounter; Y93.89 Activity, other specified; Y92.002 Bathroom of unspecified non-institutional (private) residence as the place of occurrence of the external cause; Z95.5 Presence of coronary angioplasty implant and graft; I25.10 Atherosclerotic heart disease of native coronary artery without angina pectoris; I10 Essential (primary) hypertension; Z87.891 Personal history of nicotine dependence; E11.9 Type 2 diabetes mellitus without complications; Z79.4 Long term (current) use of insulin; I48.91 Unspecified atrial fibrillation; Z79.01 Long term (current) use of anticoagulants; Z20.822 Contact with and (suspected) exposure to COVID-19
CPT/HCPCS: 0202U; 36415; 70450; 71250; 80053; 81001; 83690; 84484; 85025; 93005; 96374; 99284; 81003; 87086

== ENCOUNTER 2021-06-07 09:52 | Emergency (ER) | payer MEDICARE, OTHER ==
[2021-06-07 10:36] LABS: BASOPHILS # (AUTO) 0.1 10^3/uL (0.0-0.1); BASOPHILS % (AUTO) 0.7 %; EOSINOPHILS # (AUTO) 0.3 10^3/uL (0.0-0.7); EOSINOPHILS % (AUTO) 4.1 %; HCT - HEMATOCRIT 44.6 % (42.0-52.0); HGB - HEMOGLOBIN 15.4 g/dL (14.0-18.0); LYMPHOCYTES # (AUTO) 1.8 10^3/uL (1.5-3.5); LYMPHOCYTES % (AUTO) 21.1 %; MEAN CORPUSCULAR HEMOGLOBIN 33.2 pg (27.0-31.0); MEAN CORPUSCULAR HGB CONC 34.5 g/dL (32.0-36.0); MEAN CORPUSCULAR VOLUME 96.1 fL (80.0-94.0); MEAN PLATELET VOLUME 9.7 fL (7.4-11.4); MONOCYTES # (AUTO) 0.6 10^3/uL (0.0-1.0); MONOCYTES % (AUTO) 6.9 %; NEUTROPHILS # (AUTO) 5.6 10^3/uL (1.5-6.6); NEUTROPHILS % (AUTO) 67.1 %; PLT - PLATELET COUNT 210 10^3/uL (130-450); RED BLOOD COUNT 4.64 10^6/uL (4.70-6.10); RED CELL DISTRIBUTION WIDTH 12.8 % (12.0-15.0); WHITE BLOOD COUNT 8.3 x10^3/uL (4.8-10.8)
--- NOTE | 2021-06-07 10:39 | XRAY Report ---
PROCEDURE: Chest 1 View X-Ray INDICATIONS: Chest pain TECHNIQUE: One view of the chest was acquired. COMPARISON: CT chest 03/26/2021 FINDINGS: Surgical changes and devices: None. Lungs and pleura: There is blunting of the right costophrenic angle, linear opacities are present wit hin the bases, left greater than right. Mediastinum: Mediastinal contours appear normal. Heart size is mildly enlarged. Bones and chest wall: No suspicious bony lesions. Overlying soft tissues appear unremarkable. IMPRESSION: Blunting of the left costophrenic angle possibly related to trace effusion. Linear opacities are pres ent suggestive atelectasis. Reviewed by: Sharda Dasilva MD on 06/07/2021 10:38 AM PDT Approved by: Sharda Dasilva MD on 06/07/2021 10:38 AM PDT Station ID: [id number]
[2021-06-07 10:50] LABS: ALBUMIN 4.1 g/dL (3.2-5.5); ALBUMIN/GLOBULIN RATIO 1.7 (1.0-2.2); BILIRUBIN,TOTAL 1.9 mg/dL (0.2-1.0); CALCIUM 8.9 mg/dL (8.5-10.3); CREATININE 0.7 mg/dL (0.6-1.2); POTASSIUM 3.4 mmol/L (3.5-5.0); TOTAL PROTEIN 6.5 g/dL (6.7-8.2)
[2021-06-07 11:38] VITALS: BP 166/105
[2021-06-07] MEDS ORDERED: MECLIZINE 12.5 MG TABLET PO STA (12:47)
[2021-06-07] MEDS ORDERED: IOVERSOL 320 100 ML VIAL IVP ONE ×2 (13:04→17:12)
--- NOTE | 2021-06-07 13:08 | ED Physician Documentation ---
PD HPI FOCAL NEURO - Stated complaint Stated Complaint: DIZZINESS - Chief complaint Chief Complaint: Neuro - History obtained from History obtained from: Patient - History of Present Illness Weakness: No: Face, Arm, Hand, Leg, Foot, Right, Left Numbness: No: Face, Arm, Hand, Leg, Foot, Right, Left Associated symptoms: No: Headache, Nausea / vomiting, Seizure, Syncope, Fall, Head injury Baseline status: positive: A&OX3, ambulatory, indep - Additional information Additional information: Patient is a 75-year-old male who presents to the emergency department stating he felt "off balance" earlier today. He states that this felt similar to the time that he had vertigo in the past. He has been feeling like his ears have been clogged and his right ear has been hurting. No focal numbness or tingling. No difficulty with speech. No facial droop. No leg or arm weakness. He states he is currently feeling better, though feels slightly lightheaded with standing. Review of Systems Constitutional: denies: Fever, Chills Ears: reports: Ear pain Nose: reports: Rhinorrhea / runny nose, Congestion, Sinus pressure / pain Respiratory: reports: Cough (Mild, dry.) GI: denies: Nausea, Vomiting, Diarrhea Skin: denies: Rash Musculoskeletal: denies: Neck pain, Back pain Neurologic: denies: Headache PD PAST MEDICAL HISTORY - Past Medical History Cardiovascular: Hypertension, Coronary artery disease, Atrial fibrillation, Arrhythmia, Other Respiratory: Asthma, Shortness of breath, Sleep apnea, Other Endocrine/Autoimmune: Type 2 diabetes GI: Other : Other HEENT: Chronic vision loss, Chronic hearing loss, Other Psych: Anxiety, Panic attacks, Post traumatic stress disorder Musculoskeletal: Osteoarthritis Derm: Other - Past Surgical History Past Surgical History: Yes General: Cholecystectomy Ortho: Arthroscopic surgery Cardiovascular: CABG, Coronary stent HEENT: Other - Present Medications Home Medications: Ambulatory Orders Medication Instructions Recorded Confirmed Amlodipine Besylate 10 mg PO DAILY 02/15/13 03/26/21 Doxazosin [Cardura] 4 mg PO DAILY 02/15/13 03/26/21 Metformin HCl 1,000 mg PO BID 02/15/13 03/26/21 Albuterol [Ventolin Hfa] 2 puffs INH Q4H PRN #1 inhaler 01/10/14 03/26/21 Cholecalciferol (Vitamin D3) 2,000 unit PO DAILY 01/23/18 03/26/21 [Vitamin D] LORazepam [Lorazepam] 0.5 mg PO BID PRN 01/23/18 03/26/21 Metoprolol Tartrate 25 mg PO BID 01/23/18 03/26/21 Potassium Citrate [Potassium 5 meq PO DAILY 01/23/18 03/26/21 Citrate ER] lisinopriL [Lisinopril] 20 mg PO DAILY 01/23/18 03/26/21 Apixaban [Eliquis] 5 mg PO BID 07/21/20 03/26/21 Clopidogrel [Plavix] 75 mg PO DAILY 07/21/20 03/26/21 Flunisolide 2 sprays BID 07/21/20 03/26/21 Insulin Glargine [Lantus Solostar] 25 unit SQ HS 07/21/20 03/26/21 Magnesium Oxide [Magnesium] 100 mg PO HS 07/21/20 03/26/21 Prednisone [Corine] 10 mg PO DAILY 07/21/20 03/26/21 Furosemide [Lasix] 20 mg PO DAILY 01/01/21 03/26/21 HYDROcod/ACETAM 5/325 [[place] 5/325] 1 - 2 tablet PO Q6H PRN #14 tablet 03/26/21 Amox/Clav 875/125 [Augmentin] 1 tab PO Q12H #20 tablet 06/07/21 Meclizine HCl [Motion Sickness] 25 mg PO Q6H PRN #30 tablet 06/07/21 - Allergies Allergies/Adverse Reactions: Allergies Allergy/AdvReac Type Severity Reaction Status Date / Time plague vaccine Allergy extreme Verified 06/07/21 10:11 high fever zolpidem Allergy Anaphylaxis Verified 06/07/21 10:11 licorice Allergy Severe Anaphylaxis Uncoded 06/07/21 10:11 glycyrrhiza Allergy Anaphylaxis Uncoded 06/07/21 10:11 - Social History Does the pt smoke?: No Smoking Status: Never smoker Does the pt drink ETOH?: Yes Does the pt have substance abuse?: No - Immunizations Immunizations are current?: No Immunizations: TDAP >10years/unknown PD ED PE NORMAL - Vitals Vital signs reviewed: Yes - General General: Alert and oriented X 3, No acute distress - HEENT HEENT: PERRL, EOMI, Ears normal (Bilateral tympanic membranes are erythematous, dull, bulging with loss of landmarks. Purulent fluid present.), Moist mucous membranes, Pharynx benign - Neck Neck: Supple, no meningeal sign - Cardiac Cardiac: RRR, Strong equal pulses - Respiratory Respiratory: No respiratory distress, Clear bilaterally - Abdomen Abdomen: Soft, Non tender, Non distended - Back Back: No spinal TTP - Derm Derm: Warm and dry - Extremities Extremities: No deformity, No edema, No calf tenderness / cord - Neuro Neuro: Alert and oriented X 3, gambreler 2-12 intact, No motor deficit, No sensory deficit, Normal speech Eye Opening: Spontaneous Motor: Obeys Commands Verbal: Oriented GCS Score: 15 - Psych Psych: Normal mood, Normal affect NIHSS - Time Time: 12:45 - Level of Consciousness Level of consciousness: (0) Alert, Keenly responsive LOC Questions: (0) Answers both Q's correct LOC Commands: (0) Performs both correctly - Gaze Best Gaze: (0) Normal - Visual Visual: (0) No loss - Facial Palsy Facial Palsy: (0) Normal, symmetrical movement - Motor Arms (both separate) Motor Arm (right): (0) No drift Motor Arm (left): (0) No drift - Motor Legs (both separate) Motor Leg (right): (0) No drift Motor Leg (left): (0) No drift - Limb Ataxia Limb Ataxia: (0) Absent - Sensory Sensory: (0) Normal - Best Language Best Language: (0) No aphasia - Dysarthria Dysarthria: (0) Normal - Extinction and Inattention (formally neg Extinction and inattention: (0) No abnormality - Total Score/Results Total Score/Result: 0 Results - Vitals Vitals: Vital Signs - 24 hr 06/07/21 06/07/21 06/07/21 09:56 10:33 11:37 Temperature 36.9 C Heart Rate 83 59 L 66 Respiratory 16 16 18 Rate Blood Pressure 197/111 H 184/110 H 166/105 H O2 Saturation 98 98 96 Oxygen O2 Source Room air - EKG (time done) 1019 Rate: Rate (enter#) (64) Rhythm: Atrial fibrillation [place]: LAD QRS: Normal Ischemia: Non specific changes - Labs Labs: Laboratory Tests 1106/07/21 06/07/21 10:29 10:29 10:29 WBC 8.3 RBC 4.64 L Hgb 15.4 Hct 44.6 MCV 96.1 H MCH 33.2 H MCHC 34.5 RDW 12.8 Plt Count 210 MPV 9.7 Neut # (Auto) 5.6 Lymph # (Auto) 1.8 Toole # (Auto) 0.6 Eos # (Auto) 0.3 Baso # (Auto) 0.1 Absolute Nucleated RBC 0.00 Nucleated RBC % 0.0 Sodium 140 Potassium 3.4 L Chloride 102 Carbon Dioxide 29 Anion Gap 9.0 BUN 16 Creatinine 0.7 Estimated GFR (MDRD) 109 Glucose 107 H Calcium 8.9 Total Bilirubin 1.9 H AST 14 ALT 13 Alkaline Phosphatase 50 Troponin I High Sens 21.9 H* Total Protein 6.5 L Albumin 4.1 Globulin 2.4 Albumin/Globulin Ratio 1.7 Lipase 33 - Rads (name of study) CT angio head Radiology: Final report received, EMP read contemporaneously, See rad report (IMPRESSION: 1. No acute intracranial abnormality. 2. No high-grade stenosis or occlusion of the central intracranial arteries. 3. Mild to moderate chronic white matter small vessel ischemic changes and mild cerebral volume loss. ) CT angio neck Radiology: Final report received, EMP read contemporaneously, See rad report (1. No high-grade stenosis or occlusion of the head and neck arteries. 2. Extensive sinus mucosal disease including complete mucosal opacification of the left maxillary sinus. Internal areas of high attenuation within the opacified sinuses likely reflect sequelae of chronic sinus) PD MEDICAL DECISION MAKING - ED course Complexity details: reviewed results, re-evaluated patient, considered di fferential, d/w patient ED course: Patient ambulating with a steady gait here. No indication of acute stroke. Seems more consistent with his otitis media and chronic sinus disease. Will place on antibiotics for home and have him follow-up with his doctor for further care. Normal cerebellar test. No significant lab abnormalities. Patient does not have any gait ataxia. Patient counseled regarding signs and symptoms for which I believe and urgent re-evaluation would be necessary. Patient with good understanding of and agreement to plan and is comfortable going home at this time This document was made in part using voice recognition software. While efforts are made to proofread this document, sound alike and grammatical errors may occur. 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 Otitis media Qualifiers: Otitis media type: suppurative Chronicity: acute Laterality: right Recurrence: non-recurrent Spontaneous tympanic membrane rupture: without spontaneous rupture Qualified Code(s): H66.001 - Acute suppurative otitis media without spontaneous rupture of ear drum, right ear Condition: Good Instructions: ED Otitis Media Acute Adult, ED Sinusitis Abx Tx Follow-Up: Abram Guardado MD [Primary Care Provider] - Within 1 week Prescriptions: Amox/Clav 875/125 [Augmentin] 1 tab PO Q12H #20 tablet Meclizine HCl [Motion Sickness] 25 mg PO Q6H PRN #30 tablet PRN Reason: Dizziness Comments: Your prescriptions were sent to [facility] in [place]. This should improve over the next 1 to 2 days with the antibiotic therapy. Return if you worsen. Your angiograms of your head and neck do not show any acute abnormalities today. If your symptoms persist longer than 1 to 2 days, your doctor should order an MRI. Discharge Date/Time: 06/07/21 14:49
--- NOTE | 2021-06-07 14:06 | CT Report ---
PROCEDURE: ANGIO HEAD W/WO INDICATIONS: ataxia CONTRAST: IV CONTRAST: Optiray 320 ml: 80 PO CONTRAST: *NO PO CONTRAST TECHNIQUE: Precontrast 4.5 mm thick angled axial sections acquired from the foramen magnum to the vertex. Afte r the administration of intravenous contrast, 1 mm thick sections acquired through the [place] is. Postcontrast 4.5 mm thick sections then re-acquired from the foramen magnum to the vertex. 3-di mensional ismksze-fanichfmc-xtzeznfdks (MIP) and/or volume rendering reformats were acquired of the c entral intracranial vasculature. For radiation dose reduction, the following was used: automated ex posure control, adjustment of mA and/or kV according to patient size. COMPARISON: CT head 03/26/2021 FINDINGS: Image quality: There is mild motion artifact. CSF spaces: There is mild cerebral volume loss with prominence of the ventricles and sulci. Basal cis terns are patent. No extra-axial fluid collections. Brain: No definite intracranial hemorrhage, mass, or mass effect. Bautista-white matter interface appear s is grossly preserved. There are scattered subcortical and periventricular white matter hypodensitie s consistent with mild to moderate chronic small vessel ischemic changes. A focal calcification is re demonstrated in the right caudate head. No abnormal intracranial enhancement. Skull and face: Calvarium and facial bones appear intact, without suspicious lesions. Sinuses: Visualized sinuses demonstrate extensive sinus mucosal disease including complete opacifica tion of the left maxillary sinus which demonstrates internal areas of heterogeneous high attenuation. Moderate mucosal thickening also demonstrated within the right maxillary sinus. There is severe mary use of thickening within the bilateral ethmoid sinuses. Mild mucosal thickening demonstrated within t he frontal sinuses. The mastoid air cells are clear. Anterior circulation: Intracranial internal carotid arteries are patent bilaterally. There is multi focal calcification along the clinoid segments of the internal carotid arteries bilaterally without h igh-grade stenosis. The paired anterior cerebral arteries are patent bilaterally. The middle cerebra l arteries is patent. The anterior communicating arteries are patent. No high-grade stenosis, occlu sivakumar, or discrete filling defects. No cerebral aneurysm identified. Posterior circulation: Visualized portions of the vertebral arteries appear patent and join to form a patent basilar artery. The posterior cerebral arteries are patent bilaterally. There is persistent circulation on the right, with the right posterior cerebral artery supplied by a posterior comm unicating artery. No high-grade stenosis, occlusion, or discrete filling defects. No cerebral aneurys m identified. IMPRESSION: 1. No acute intracranial abnormality. 2. No high-grade stenosis or occlusion of the central intracranial arteries. 3. Mild to moderate chronic white matter small vessel ischemic changes and mild cerebral volume loss. Reviewed by: Marcelo Biggs MD on 06/07/2021 2:05 PM PDT Approved by: Marcelo Biggs MD on 06/07/2021 2:05 PM PDT Station ID: [id number]
--- NOTE | 2021-06-07 14:11 | CT Report ---
PROCEDURE: ANGIO NECK W INDICATIONS: ataxia CONTRAST: IV CONTRAST: Optiray 320 ml: 80 PO CONTRAST: *NO PO CONTRAST TECHNIQUE: After the administration of intravenous contrast, 1.5 mm axial sections acquired from the aortic arch to the [place] of [place]. Coronal 3-D maximum intensity projection (MIP) and/or volume rendering ref ormats were then performed. For radiation dose reduction, the following was used: automated exposur e control, adjustment of mA and/or kV according to patient size. COMPARISON: Concurrent CT angiogram of the brain. FINDINGS: Image quality: Excellent. Carotid system: The great vessels demonstrate a conventional anatomy as they arise from the aortic a rch. The origins of the common carotid arteries appear patent. The common carotid arteries demonstr ate normal calibers and courses. The bifurcation regions appear widely patent bilaterally. There is mild calcified plaque in the carotid bulbs. The internal carotid arteries demonstrate normal caliber and appear patent bilaterally. Posterior circulation: The origins of the vertebral arteries appear patent. The more superior porti ons of the vertebral arteries demonstrate normal course and caliber. They join to form a patent basi lar artery. Soft tissues: Visualized neck soft tissues demonstrate no suspicious abnormalities. The thyroid is normal in size and there are no incidental findings. Bones: No suspicious bony lesions. Visualized cervical spine appears normally aligned. There is ext ensive sinus mucosal disease demonstrated bilaterally including complete mucosal opacification of the left maxillary sinus. This also demonstrates internal heterogeneous areas of high attenuation. Moder ate mucosal thickening demonstrated in the right maxillary sinus and a lateral frontal sinuses. Sever e mucosal thickening demonstrated in the bilateral ethmoid sinuses. IMPRESSION: 1. No high-grade stenosis or occlusion of the head and neck arteries. 2. Extensive sinus mucosal disease including complete mucosal opacification of the left maxillary sin us. Internal areas of high attenuation within the opacified sinuses likely reflect sequelae of chroni c sinusitis. The estimate of stenosis included in the report of the imaging study was calculated using the NASCET method CLINICAL RECOMMENDATION STATEMENTS: In patients <35 years with an ITN detected on CT, MRI, or extrathyroidal ultrasound, the Committee re commends further evaluation with dedicated thyroid ultrasound if the nodule is "e1 cm and has no susp icious imaging features, and if the patient has normal life expectancy. In patients "e35 years with an ITN detected on CT, MRI, or extrathyroidal ultrasound, the Committee r ecommends further evaluation with dedicated thyroid ultrasound if the nodule is "e1.5 cm and has no s uspicious imaging features, and if the patient has normal life expectancy. (ACR, 2014) Reviewed by: Marcelo Biggs MD on 06/07/2021 2:10 PM PDT Approved by: Marcelo Biggs MD on 06/07/2021 2:10 PM PDT Station ID: [id number]
== END 2021-06-07 14:49 | disposition home or self-care (01) ==
LOC: ED 09:52
DX: J32.4 Chronic pansinusitis (principal); H66.001 Acute suppurative otitis media without spontaneous rupture of ear drum, right ear; E11.9 Type 2 diabetes mellitus without complications; Z79.4 Long term (current) use of insulin; I48.91 Unspecified atrial fibrillation; Z79.01 Long term (current) use of anticoagulants; I10 Essential (primary) hypertension
CPT/HCPCS: 36415; 70496; 70498; 71045; 80053; 83690; 84484; 85025; 93005; 99283; 99284; A9270; Q9967

== ENCOUNTER 2021-09-04 13:25 | Outpatient (CLI) | payer OTHER | END 2021-09-04 13:26 | disposition critical access hospital (66) | LOC: EMS 13:25 | DX: R53.1 Weakness (principal); R50.9 Fever, unspecified | CPT/HCPCS: A0425; A0427 ==

== ENCOUNTER 2021-09-04 14:11 | Inpatient (IN) | payer OTHER ==
--- NOTE | 2021-09-04 14:21 | ED Physician Documentation ---
History of Present Illness - Stated complaint Stated Complaint: WEAKNESS - History obtained from History obtained from: Patient, EMS - Additonal information Additional information: 75-year-old gentleman with history of asthma, atrial fibrillation on anticoagulation, type 2 diabetes and hypertension. He presents by ambulance for weakness which is generalized and confusion for the last 2 days. Patient unable to give any significant history due to confusion and his is on the way here. He is noted to be febrile on arrival. Patient admits to urinary issues but cannot elaborate. arrived later, he has had a couple of episodes where he kind of slumped out of the chair. She is 100% sure he did not hit his head. Review of Systems Unable to obtain: Confused PD PAST MEDICAL HISTORY - Past Medical History Cardiovascular: Hypertension, Coronary artery disease, Atrial fibrillation, Arrhythmia, Other Respiratory: Asthma, Shortness of breath, Sleep apnea, Other Endocrine/Autoimmune: Type 2 diabetes GI: Other : Other HEENT: Chronic vision loss, Chronic hearing loss, Other Psych: Anxiety, Panic attacks, Post traumatic stress disorder Musculoskeletal: Osteoarthritis Derm: Other - Past Surgical History Past Surgical History: Yes General: Cholecystectomy Ortho: Arthroscopic surgery Cardiovascular: CABG, Coronary stent HEENT: Other - Present Medications Home Medications: Ambulatory Orders Medication Instructions Recorded Confirmed Amlodipine Besylate 10 mg PO DAILY 02/15/13 03/26/21 Doxazosin [Cardura] 4 mg PO DAILY 02/15/13 03/26/21 Metformin HCl 1,000 mg PO BID 02/15/13 03/26/21 Albuterol [Ventolin Hfa] 2 puffs INH Q4H PRN #1 inhaler 01/10/14 03/26/21 Cholecalciferol (Vitamin D3) 2,000 unit PO DAILY 01/23/18 03/26/21 [Vitamin D] LORazepam [Lorazepam] 0.5 mg PO BID PRN 01/23/18 03/26/21 Metoprolol Tartrate 25 mg PO BID 01/23/18 03/26/21 Potassium Citrate [Potassium 5 meq PO DAILY 01/23/18 03/26/21 Citrate ER] lisinopriL [Lisinopril] 20 mg PO DAILY 01/23/18 03/26/21 Apixaban [Eliquis] 5 mg PO BID 07/21/20 03/26/21 Clopidogrel [Plavix] 75 mg PO DAILY 07/21/20 03/26/21 Flunisolide 2 sprays BID 07/21/20 03/26/21 Insulin Glargine [Lantus Solostar] 25 unit SQ HS 07/21/20 03/26/21 Magnesium Oxide [Magnesium] 100 mg PO HS 07/21/20 03/26/21 Prednisone [Corine] 10 mg PO DAILY 07/21/20 03/26/21 Furosemide [Lasix] 20 mg PO DAILY 01/01/21 03/26/21 HYDROcod/ACETAM 5/325 [[place] 5/325] 1 - 2 tablet PO Q6H PRN #14 tablet 03/26/21 Amox/Clav 875/125 [Augmentin] 1 tab PO Q12H #20 tablet 06/07/21 Meclizine HCl [Motion Sickness] 25 mg PO Q6H PRN #30 tablet 06/07/21 - Allergies Allergies/Adverse Reactions: Allergies Allergy/AdvReac Type Severity Reaction Status Date / Time plague vaccine Allergy extreme Verified 09/04/21 14:18 high fever zolpidem Allergy Anaphylaxis Verified 09/04/21 14:18 licorice Allergy Severe Anaphylaxis Uncoded 09/04/21 14:18 glycyrrhiza Allergy Anaphylaxis Uncoded 09/04/21 14:18 - Social History Does the pt smoke?: No Smoking Status: Never smoker Does the pt drink ETOH?: Yes Does the pt have substance abuse?: No - Immunizations Immunizations are current?: No Immunizations: TDAP >10years/unknown PD ED PE NORMAL - Vitals Vital signs reviewed: Yes (Febrile and tachycardic) - General General: No acute distress, Other (He is alert and oriented to person but not place time or events) - HEENT HEENT: PERRL, EOMI - Neck Neck: Supple, no meningeal sign, No bony TTP - Cardiac Cardiac: No murmur, Other (Irregularly irregular) - Respiratory Respiratory: No respiratory distress, Clear bilaterally - Abdomen Abdomen: Normal bowel sounds, Soft, Non tender - Back Back: No CVA TTP, No spinal TTP - Derm Derm: Normal color, Warm and dry - Extremities Extremities: No edema, No calf tenderness / cord - Neuro Eye Opening: Spontaneous Motor: Obeys Commands Verbal: Confused GCS Score: 14 Results - Vitals Vitals: Vital Signs - 24 hr 09/04/21 09/04/21 09/04/21 14:18 14:24 14:53 Temperature 39.6 C H 39.6 C H Heart Rate 118 H 118 H 120 H Respiratory 20 20 28 H Rate Blood Pressure 190/100 H 190/100 H 196/104 H O2 Saturation 98 96 97 09/04/21 09/04/21 15:23 15:30 Temperature 37.4 C Heart Rate 120 H 120 H Respiratory 24 24 Rate Blood Pressure 146/96 H 146/96 H O2 Saturation 95 96 Oxygen O2 Source Room air - EKG (time done) 1422 Rate: Rate (enter#) (122) Rhythm: Atrial fibrillation (w pvc) Intervals: Other (LAFB) Ischemia: Q waves (ant/inf). No: ST elevation c/w ischemia, ST depression - Labs Labs: Laboratory Tests 09/04/21 09/04/21 09/04/21 14:24 14:27 15:12 WBC 17.8 H RBC 4.52 L Hgb 14.7 Hct 41.9 L MCV 92.7 MCH 32.5 H MCHC 35.1 RDW 12.7 Plt Count 178 MPV 9.5 Neut # (Auto) 15.6 H Lymph # (Auto) 0.8 L [place] # (Auto) 1.3 H Eos # (Auto) 0.0 Baso # (Auto) 0.1 Absolute Nucleated RBC 0.00 Nucleated RBC % 0.0 Sodium Potassium Chloride Carbon Dioxide Anion Gap BUN Creatinine Estimated GFR (MDRD) Glucose Lactic Acid Calcium Total Bilirubin AST ALT Alkaline Phosphatase Total Protein Albumin Globulin Albumin/Globulin Ratio Urine Color YELLOW Urine Clarity CLOUDY Urine pH 6.0 Ur Specific [place] 1.020 Urine Protein 100 H Urine Glucose (UA) NEGATIVE Urine Ketones TRACE Urine Occult Blood MODERATE H Urine Nitrite NEGATIVE Urine Bilirubin NEGATIVE Urine Urobilinogen 1 (NORMAL) Ur Leukocyte Esterase MODERATE H Urine RBC 11-25 H Urine WBC >25 H Ur Squamous Epith Cells RARE Squamous Urine Bacteria Many H Urine Culture Comments INDICATED Nasal Adenovirus (PCR) NOT DETECTED Nasal B. parapertussis DNA (PCR) NOT DETECTED Nasal Coronavir 229E PCR NOT DETECTED Nasal Coronavir HKU1 PCR NOT DETECTED Nasal Coronavir NL63 PCR NOT DETECTED Nasal Coronavir OC43 PCR NOT DETECTED Nasal Enterovir/Rhinovir PCR NOT DETECTED Nasal Influenza B PCR NOT DETECTED Nasal Influenza A PCR NOT DETECTED Nasal Parainfluen 1 PCR NOT DETECTED Nasal Parainfluen 2 PCR NOT DETECTED Nasal Parainfluen 3 PCR NOT DETECTED Nasal Parainfluen 4 PCR NOT DETECTED Nasal RSV (PCR) NOT DETECTED Nasal B.pertussis DNA PCR NOT DETECTED Nasal C.pneumoniae (PCR) NOT DETECTED Ed Human Metapneumo PCR NOT DETECTED Nasal M.pneumoniae (PCR) NOT DETECTED Nasal SARS-CoV-2 (PCR) NOT DETECTED 09/04/21 09/04/21 15:12 15:12 WBC RBC Hgb Hct MCV MCH MCHC RDW Plt Count MPV Neut # (Auto) Lymph # (Auto) [place] # (Auto) Eos # (Auto) Baso # (Auto) Absolute Nucleated RBC Nucleated RBC % Sodium 136 Potassium 3.2 L Chloride 99 L Carbon Dioxide 25 Anion Gap 12.0 BUN 23 H Creatinine 0.9 Estimated GFR (MDRD) 82 L Glucose 174 H Lactic Acid 1.5 Calcium 8.8 Total Bilirubin 4.6 H AST 15 ALT 15 Alkaline Phosphatase 47 Total Protein 6.5 L Albumin 3.6 Globulin 2.9 Albumin/Globulin Ratio 1.2 Urine Color Urine Clarity Urine pH Ur Specific [place] Urine Protein Urine Glucose (UA) Urine Ketones Urine Occult Blood Urine Nitrite Urine Bilirubin Urine Urobilinogen Ur Leukocyte Esterase Urine RBC Urine WBC Ur Squamous Epith Cells Urine Bacteria Urine Culture Comments Nasal Adenovirus (PCR) Nasal B. parapertussis DNA (PCR) Nasal Coronavir 229E PCR Nasal Coronavir HKU1 PCR Nasal Coronavir NL63 PCR Nasal Coronavir OC43 PCR Nasal Enterovir/Rhinovir PCR Nasal Influenza B PCR Nasal Influenza A PCR Nasal Parainfluen 1 PCR Nasal Parainfluen 2 PCR Nasal Parainfluen 3 PCR Nasal Parainfluen 4 PCR Nasal RSV (PCR) Nasal B.pertussis DNA PCR Nasal C.pneumoniae (PCR) Ed Human Metapneumo PCR Nasal M.pneumoniae (PCR) Nasal SARS-CoV-2 (PCR) PD MEDICAL DECISION MAKING - ED course ED course: 75-year-old gentleman presents with fever and encephalopathy. He has a history of UTIs. His hemodynamics are good albeit he he is in A. fib with mild RVR. He was found to have a UTI and a white count of 17,000. He is febrile to 39 6 here. He is fitting the criteria for sepsis albeit not septic shock. Spoke with Dr. Catherine for admission, she requests imaging to rule out obstruction and a CT was ordered. He was administered Rocephin after blood cultures were obtained. - Sepsis Event Sepsis Onset Date: 09/04/21 Sepsis Onset Time: 15:32 Current Stage of Sepsis: Sepsis Initial Hypotension: Not hypotensive Possible source of Sepsis: Genitourinary Mental/Cognitive Status: Confused, Change from baseline Reason for not giving 30ml/kg crystalloid fluids: Not in septic shock Capillary refill: Less than 2 seconds Peripheral Pulse Strength: 2+ Slightly Diminished Peripheral Pulse Location: Radial Bedside ultrasound performed: No Departure - Departure Disposition: 66 [facility] DC/Xfer Clinical Impression: Sepsis Qualifiers: Sepsis type: sepsis due to unspecified organism Sepsis acute organ dysfunction status: with acute organ dysfunction Severe sepsis acute organ dysfunction type: encephalopathy Severe sepsis shock status: without septic shock Qualified Code(s): A41.9 - Sepsis, unspecified organism; R65.20 - Severe sepsis without septic shock; G93.40 - Encephalopathy, unspecified UTI (urinary tract infection) Qualifiers: Urinary tract infection type: acute pyelonephritis Qualified Code(s): N10 - Acute pyelonephritis Condition: Serious Discharge Date/Time: 09/04/21 17:09
[2021-09-04] MEDS ORDERED: ACETAMINOPHEN 325 MG TABLET PO STA (14:36)
[2021-09-04 14:39] LABS: BILIRUBIN,URINE NEGATIVE (NEGATIVE); GLUCOSE, URINE (UA) NEGATIVE (NEGATIVE); KETONES,URINE (UA) TRACE mg/dL (NEGATIVE); LEUKOCYTE ESTERASE, URINE MODERATE (NEGATIVE); NITRITE,URINE NEGATIVE (NEGATIVE); OCCULT BLOOD,URINE MODERATE (NEGATIVE); PROTEIN,URINE 100 mg/dL (NEGATIVE); UROBILINOGEN,URINE 1 (NORMAL) E.U./dL (NORMAL)
[2021-09-04 14:40] LABS: CLARITY,URINE CLOUDY (CLEAR)
[2021-09-04 15:07] LABS: BACTERIA,URINE Many /HPF (None Seen); SQUAMOUS EPITHELIAL CELL,UR RARE Squamous (<= Few); WBC,URINE >25 /HPF (0-3)
[2021-09-04] MEDS ORDERED: cefTRIAXone 1 GM in SODIUM CHLORIDE 0.9% MINIBAG 100 ML IV STA (15:07)
[2021-09-04 15:19] LABS: BASOPHILS # (AUTO) 0.1 10^3/uL (0.0-0.1); BASOPHILS % (AUTO) 0.3 %; EOSINOPHILS % (AUTO) 0.1 %; HCT - HEMATOCRIT 41.9 % (42.0-52.0); HGB - HEMOGLOBIN 14.7 g/dL (14.0-18.0); LYMPHOCYTES # (AUTO) 0.8 10^3/uL (1.5-3.5); LYMPHOCYTES % (AUTO) 4.3 %; MEAN CORPUSCULAR HEMOGLOBIN 32.5 pg (27.0-31.0); MEAN CORPUSCULAR HGB CONC 35.1 g/dL (32.0-36.0); MEAN CORPUSCULAR VOLUME 92.7 fL (80.0-94.0); MEAN PLATELET VOLUME 9.5 fL (7.4-11.4); MONOCYTES # (AUTO) 1.3 10^3/uL (0.0-1.0); MONOCYTES % (AUTO) 7.4 %; NEUTROPHILS # (AUTO) 15.6 10^3/uL (1.5-6.6); NEUTROPHILS % (AUTO) 87.3 %; PLT - PLATELET COUNT 178 10^3/uL (130-450); RED BLOOD COUNT 4.52 10^6/uL (4.70-6.10); RED CELL DISTRIBUTION WIDTH 12.7 % (12.0-15.0); WHITE BLOOD COUNT 17.8 x10^3/uL (4.8-10.8)
[2021-09-04 15:31] LABS: ALBUMIN 3.6 g/dL (3.2-5.5); ALBUMIN/GLOBULIN RATIO 1.2 (1.0-2.2); BILIRUBIN,TOTAL 4.6 mg/dL (0.2-1.0); CALCIUM 8.8 mg/dL (8.5-10.3); CREATININE 0.9 mg/dL (0.6-1.2); POTASSIUM 3.2 mmol/L (3.5-5.0); TOTAL PROTEIN 6.5 g/dL (6.7-8.2)
[2021-09-04 15:48] LABS: B. PARAPERTUSSIS- RESP PCR PAN NOT DETECTED; B. PERTUSSIS- RESP PCR PANEL NOT DETECTED; C. PNEUMONIAE- RESP PCR PANEL NOT DETECTED; CORONAVIRUS 229E-RESP PCR NOT DETECTED; CORONAVIRUS HKU1-RESP PCR NOT DETECTED; CORONAVIRUS NL63-RESP PCR NOT DETECTED; CORONAVIRUS OC43-RESP PCR NOT DETECTED; HUMAN METAPNEUMOVIRUS NOT DETECTED; INFLUENZA A- RESP PCR PANEL NOT DETECTED; INFLUENZA B - RESP PCR PANEL NOT DETECTED; M. PNEUMONIAE- RESP PCR PANEL NOT DETECTED; PARAINFLUENZA VIRUS 1 NOT DETECTED; PARAINFLUENZA VIRUS 2 NOT DETECTED; PARAINFLUENZA VIRUS 3 NOT DETECTED; PARAINFLUENZA VIRUS 4 NOT DETECTED; RHINOVIRUS/ENTEROVIRUS NOT DETECTED; RSV- RESP PCR PANEL NOT DETECTED; SARS-CoV-2 -RESP PCR PANEL NOT DETECTED
[2021-09-04] MEDS ORDERED: ONDANSETRON 4 MG/2 ML VIAL IVP PRN (15:54)
[2021-09-04] MEDS ORDERED: SODIUM CHLORIDE FLUSH 0.9% 10 ML SYRINGE IVP PRN (15:54)
--- NOTE | 2021-09-04 16:21 | XRAY Report ---
PROCEDURE: Chest 1 View X-Ray INDICATIONS: fever TECHNIQUE: One view of the chest was acquired. COMPARISON: 06/07/2021 FINDINGS: Surgical changes and devices: None. Lungs and pleura: No pleural effusions or pneumothorax. Lungs are enlarged. Mild vascular congestio n noted. . The left costophrenic angle not included on the exam Mediastinum: Mediastinal contours appear normal. Heart size is normal. Bones and chest wall: No suspicious bony lesions. Overlying soft tissues appear unremarkable. IMPRESSION: Cardiomegaly and mild vascular congestion Reviewed by: Jay Doll MD on 09/04/2021 3:19 PM [place] Approved by: Jay Doll MD on 09/04/2021 3:19 PM [place] Station ID: [id number]
--- NOTE | 2021-09-04 16:48 | HISTORY & PHYSICAL EXAMINATION ---
Chief Complaint - Chief Complaint Chief Complaint: Urosepsis, weakness History of Present Illness - Admitted From Admitted From:: Home - History Obtained From Records Reviewed: Michael History obtained from: Pt, [employer], Exam Limitations: Pt is hard of hearing and slightly confused - History of Present Illness HPI Comment/Other: Mikel Vazquez is a 75 year old male with a past medical history that includes asthma (on daily prednisone), afib (on Eliquis), HTN, T2DM, BPH, chronic sinusitis, and Cronin's Palsy. He was brought to the ER after his called EMS due to weakness and confusion by the patient. At baseline he is alert and oriented, able to ambulate with a cane and perform ADLs independently. Per her report, after a telehealth visit yesterday the patient became dizzy and tired and slept most of the day. This is not usual for him. Around midnight he got up to use the bathroom but felt weak and had difficulty walking so his helped him into a wheelchair at the home and he was able to get onto the toilet. He was not able to get up from the toilet so they called her daughter and her daughter's friend to come help him back to bed. At that time the patient "didn't seem right, sort of confused" but it was attributed to being tired and he went back to sleep. At 0500 he got back into the wheelchair and went to the bathroom but was weak and slid out of the chair when attempting to get up to the toilet. His and the patient both deny that he hit his head. He reports his legs gave out but nothing was injured. The daughter and her friend again came to help him back into bed. At that time he was more alert but tired, denied pain but was noticeably breathing "heavier than normal". He slept most of the morning and when he woke around 1100 his checked his temperature with a temporal thermometer and found him to be 101.4. He did not look good at that time. She checked a blood glucose and it was 188. She decided to call EMS to bring him to the hospital for evaluation. In the ER he was found to have a temp of 39.6, WBC 17, and he was only oriented to himself. His HR was in the 120s and BP 190/100. A UA and cx were obtained and the UA revealed a UTI. He was started on antibiotics and decision was made to admit him to inpatient status for urosepsis and weakness. He reports weakness, fatigue and difficulty initiating a stream in addition to the fever they measured at home. Denies chest pain, dyspnea, dysuria, nausea, or vomiting. After discussion with the Pt and his (at the time he was alert and oriented to self, place, reason for admission and month), he has elected to be a full code with both chest compressions/CPR and intubation if needed. 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") Endocrine/Autoimmune: reports: Type 2 diabetes : reports: Benign prostate hypertrophy, Other HEENT: reports: Chronic vision loss, Chronic hearing loss, Other Psych: reports: Anxiety, Panic attacks, Post traumatic stress disorder Musculoskeletal: reports: Osteoarthritis Derm: reports: Other MRSA Hx?: No - Past Surgical History General: reports: Cholecystectomy Ortho: reports: Arthroscopic surgery Cardiovascular: reports: CABG, Coronary stent HEENT: reports: Other - Family & Social History Family History: Mother: , Cancer, Father: , Cancer Family History Comment/Other: Reports his mother in her late 80s of "some kind of stomach cancer". Father "young" with "cancer". He has a half brother and 3-4 half sisters but is unsure of their health status. 2 daughters with his first are healthy. Living arrangement: At home Living Situation: With spouse/s.o. Social History Notes: Pt lives at home with his spouse and their dog in a multi- level home. 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 Prior to admission he was independent with ADLs and iADLs but occasionally needs help getting his socks on. He denies tobacco use, alcohol use, marijuana or illicit drug use. - Substance History Use: Uses substance without health or social issues: NONE Abuse: Recurrent use of substance despite neg consequences: NONE Dependence: Experiences withdrawal or developed tolerances: NONE - POLST Patient has POLST: No Meds/Allgy - Home Medications Home Medications: Ambulatory Orders Medication Instructions Recorded Confirmed Amlodipine Besylate 10 mg PO DAILY 02/15/13 03/26/21 Doxazosin [Cardura] 4 mg PO DAILY 02/15/13 03/26/21 Metformin HCl 1,000 mg PO BID 02/15/13 03/26/21 Albuterol [Ventolin Hfa] 2 puffs INH Q4H PRN #1 inhaler 01/10/14 03/26/21 Cholecalciferol (Vitamin D3) 2,000 unit PO DAILY 01/23/18 03/26/21 [Vitamin D] LORazepam [Lorazepam] 0.5 mg PO BID PRN 01/23/18 03/26/21 Metoprolol Tartrate 25 mg PO BID 01/23/18 03/26/21 Potassium Citrate [Potassium 5 meq PO DAILY 01/23/18 03/26/21 Citrate ER] lisinopriL [Lisinopril] 20 mg PO DAILY 01/23/18 03/26/21 Apixaban [Eliquis] 5 mg PO BID 07/21/20 03/26/21 Clopidogrel [Plavix] 75 mg PO DAILY 07/21/20 03/26/21 Flunisolide 2 sprays BID 07/21/20 03/26/21 Insulin Glargine [Lantus Solostar] 25 unit SQ HS 07/21/20 03/26/21 Magnesium Oxide [Magnesium] 100 mg PO HS 07/21/20 03/26/21 Prednisone [Corine] 10 mg PO DAILY 07/21/20 03/26/21 Furosemide [Lasix] 20 mg PO DAILY 01/01/21 03/26/21 HYDROcod/ACETAM 5/325 [[place] 5/325] 1 - 2 tablet PO Q6H PRN #14 tablet 03/26/21 Amox/Clav 875/125 [Augmentin] 1 tab PO Q12H #20 tablet 06/07/21 Meclizine HCl [Motion Sickness] 25 mg PO Q6H PRN #30 tablet 06/07/21 - Allergies Allergies/Adverse Reactions: Allergies Allergy/AdvReac Type Severity Reaction Status Date / Time plague vaccine Allergy extreme Verified 09/04/21 14:18 high fever zolpidem Allergy Anaphylaxis Verified 09/04/21 14:18 licorice Allergy Severe Anaphylaxis Uncoded 09/04/21 14:18 glycyrrhiza Allergy Anaphylaxis Uncoded 09/04/21 14:18 Review of Systems - Constitutional Constitutional: reports: Fatigue, Fever, Weakness, Poor appetite - Eyes Eyes: reports: Vision loss. denies: Pain, Blurred vision - Ears, Nose & Throat Ears, Nose & Throat: reports: Hearing loss. denies: Nasal pain, Nosebleeds, Sore throat, Mouth lesions - Cardiovascular Cariovascular: reports: Irregular heart rate. denies: Palpitations, Chest pain, Edema, Lightheadedness, Syncope - Respiratory Respiratory: reports: Wheezing, SOB with exertion. denies: Cough, Hemoptysis - Gastrointestinal Gastrointestinal: denies: Abdominal pain, Abdominal distention, Constipation, Diarrhea, Change in bowel habits, Black stools, Bloody stools, Nausea, Vomiting - Genitourinary Genitourinary: reports: Other (difficulty initiating a stream). denies: Dysuria, Frequency, Urgency, Hematuria, Incontinence - Musculoskeletal Musculoskeletal: reports: Muscle weakness. denies: Muscle pain, Back pain - Integumentary Integumentary: reports: Other (scabs on his elbows and knees from bumping into things at home, rash in the groin from intertrigo) - Neurological Neurological: reports: General weakness. denies: Headache, Dizziness, Memory problems - Endocrine Endocrine: denies: Polyuria, Polydypsia, Polyphagia - Hematologic/Lymphatic Hematologic/Lymphatic: denies: Anemia, Bruising - All Other Systems All Other Systems: reports: Reviewed and negative Prior Level of Functionality: Prior to admission Pt was able to dress and groom himself and perform ADLs. Ambulates with a cane and occasionally requires a wheelchair. His drives and makes sure bills are paid. Exam - Vital Signs Reviewed Vital Signs: Yes Vital Signs: Vital Signs x48h Temp Pulse Resp BP Pulse Ox 09/04/21 16:30 36.5 C 100 20 164/70 H 96 09/04/21 16:00 130 H 24 140/90 H 96 09/04/21 15:30 120 H 24 146/96 H 96 09/04/21 15:23 37.4 C 120 H 24 146/96 H 95 09/04/21 14:53 120 H 28 H 196/104 H 97 09/04/21 14:24 39.6 C H 118 H 20 190/100 H 96 09/04/21 14:18 39.6 C H 118 H 20 190/100 H 98 - Physical Exam General Appearance: positive: No acute distress, Alert Eyes Bilateral: positive: Conjunctivae nml, No scleral icterus, Other (Right pupil 2mm, even and reactive to light; left pupil 1-2mm, even and reactive to light; lid lag bilaterally (L>R)) ENT: positive: Dry mucous membranes Neck: positive: Nml inspection Respiratory: positive: Chest non-tender, No respiratory distress, Breath sounds nml Cardiovascular: positive: Irregularly irregular, Tachycardia Peripheral Pulses: positive: 2+ Abdomen: positive: Non-tender, No organomegaly, Nml bowel sounds, No distention Skin: positive: Other (groin folds red and blanching from intertrigo; scabs present to the elbows and legs from bumping into things at home) Extremities: positive: Non-tender, Full ROM, Nml appearance, No pedal edema Neurologic/Psychiatric: positive: Oriented x3, Weakness (arms 4/5 strength bilaterally, legs 4/5 strength bilaterally) Sepsis Event Note (H) - Evaluation Current Stage of Sepsis: Sepsis Possible source of Sepsis: positive: Genitourinary - Sepsis Criteria Sepsis Criteria: Recorded Temperature greater than 38.3C or Less than 36C, Recorded Heart Rate greater than 90 bpm, WBC count greater than 12,000 or less than 4000 Conclusion/Plan - Problem List (1) Sepsis Conclusion/Plan: Pt reportedly had a temp to 101.4 at home, was found to be 39.6 C in the ED. Ta chycardic to 120, BP 190/100, WBC 17.8. UA and culture were sent to the lab, UA revealed a UTI. He was started on IV fluids for dehydration and Rocephin while awaiting culture and sensitivities. CT abdomen and pelvis showing prostatic hypertrophy with possible chronic bladder outlet obstruction but no abscess, fistula, or hydronephrosis. Reports feeling week but denies nausea, skin issues, or pain. He was initially encephalopathic in the ER but has cleared and is now oriented to self, place, and birthday. Thought it was September at first but able to state 2021. -Continue daily CBC to trend WBC -Continue Rocephin until culture and sensitivities return -IVF -Monitor vitals Qualifiers: Sepsis type: sepsis due to unspecified organism Sepsis acute organ dysfunction status: with acute organ dysfunction Severe sepsis acute organ dysfunction type: encephalopathy Severe sepsis shock status: without septic shock Qualified Code(s): A41.9 - Sepsis, unspecified organism; R65.20 - Severe sepsis without septic shock; G93.40 - Encephalopathy, unspecified (2) UTI (urinary tract infection) Conclusion/Plan: UA positive for UTI. Denies dysuria or hematuria. Started on Rocephin, will tailor as needed when culture and sensitivities return. Qualifiers: Urinary tract infection type: acute pyelonephritis Qualified Code(s): N10 - Acute pyelonephritis (3) Atrial fibrillation Conclusion/Plan: This is chronic for him and he takes Eliquis at home. HR initially in the 120- 130s, now low 100s. Eliquis was restarted, will plan to restart home meds once med reconciliation has been completed by Pharmacy. May require IV meds for rate control if he increases again to the 120s-130s, will continue to monitor. -Telemetry -Resume Eliquis and home meds once med rec completed Qualifiers: Atrial fibrillation type: longstanding persistent Qualified Code(s): I48.11 - Longstanding persistent atrial fibrillation (4) Type 2 diabetes mellitus Conclusion/Plan: Unclear last A1c, will plan to obtain with morning labs. On chart review he takes Glargine 25 units at night, will reorder this and plan for BGs ac/hs with low dose sliding scale. Last BG this evening in the 170s, reports it was 188 at home prior to presenting to the ED. He has not eaten or drank much in the last 2 days per his . Will encourage oral intake and continue to monitor. -BG ac/hs -Glargine 25units Qpm Qualifiers: Diabetes mellitus psychiatric rn insulin use: with psychiatric rn use Diabetes mellitus complication status: without complication Qualified Code(s): E11.9 - Type 2 diabetes mellitus without complications; Z79.4 - longterm (current) use of insulin (5) Hypertension Conclusion/Plan: Blood pressures have been 140s-160s/70-90s. Takes multiple medications at home for HTN and afib, will plan to resume once med reconciliation has been completed. Will continue to monitor and treat with IV if needed. -Resume home meds when able Qualifiers: Hypertension type: primary hypertension Qualified Code(s): I10 - Essential (primary) hypertension (6) Asthma Conclusion/Plan: This is long standing. He takes daily prednisone. Is not currently in an exacerbation, denies shortness of breath and no wheezing noted on exam. I have ordered 3 days of hydrocortisone 100mg IV daily and will resume prednisone after. (7) History of Cronin's palsy Conclusion/Plan: Remote history per Pt, he cannot remember all of the sequelae from this but does note it left his left pupil slightly smaller. (8) BPH (benign prostatic hyperplasia) Conclusion/Plan: Pt reports history of BPH but does not appear to be taking Flomax outpatient, will assess further tomorrow. Has had difficulty initiating a stream "forever" but denies hematuria or dysuria. Abdomen/pelvic CT noted prostate gland enlarged with smooth bladder wall thicknening which ma be sequela of chronic bladder outlet obstruction. Bladder non-distended. Will continue to monitor but will consider starting Flomax tomorrow after med reconciliation. Qualifiers: Lower urinary tract symptom detail: urinary hesitancy (9) Chronic sinusitis Conclusion/Plan: Reports chronic sinusitis, no current symptoms. Qualifiers: Sinusitis location: pansinusitis Qualified Code(s): J32.4 - Chronic pansinusitis - Lab Results Lab results reviewed: Yes Oliver Bones: 09/04/21 15:12 09/04/21 15:12 - Diagnostic Imaging Results Diagnostic Imaging Results: positive: Final report reviewed - EKG Results EKG Interpreted Independently: Yes Core Measures - Anticipated LOS I expect patient to be DC'd or transferred within 96 hours.: Yes - DVT/VTE - Prophylaxis VTE/DVT Device ordered at admit?: Yes VTE/DVT Prophylaxis med ordered at admit?: Yes
--- NOTE | 2021-09-04 17:22 | CT Report ---
PROCEDURE: CT abdomen and pelvis without contrast INDICATIONS: uti w sepsis TECHNIQUE: Noncontrast 5 mm thick sections acquired from the diaphragms to the symphysis. 5 mm coronal and sagi ttal reformats were then performed. For radiation dose reduction, the following was used: automated exposure control, adjustment of mA and/or kV according to patient size. COMPARISON: None. FINDINGS: Image quality: Excellent. ABDOMEN: Lung bases: Lung bases are clear. Heart size is enlarged. Dense coronary artery vascular calcifica tion. Solid organs: Liver and spleen are normal in size. Gallbladder surgically absent Pancreas is lisseth l in contours. No adrenal nodules. Both kidneys are appropriate in size without hydronephrosis or calculi. Large renal cyst arises from the lower pole of the left kidney measuring 11 cm, similar prior exam. Peritoneum and bowel: Unenhanced bowel loops demonstrate normal wall thickness and caliber. No free fluid or air. Multiple diverticula arise from the sigmoid colon without evidence of acute diverticu litis. Moderate fecal debris in the transverse and sigmoid colon. Nodes and vessels: No retroperitoneal or mesenteric adenopathy by size criteria. Aorta and inferior vena cava are normal in caliber. Miscellaneous: Small periumbilical ventral hernia contains fat without bowel involvement. PELVIS: Genitourinary: Prostate gland is enlarged, and there is a bladder wall thickening without bladder dis tention. Miscellaneous: No inguinal hernias or adenopathy. Bones: No suspicious bony lesions. No vertebral body compression fractures. 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 IMPRESSION: Prostatic hypertrophy with a smooth bladder wall thickening may be sequela of chronic bladder outlet obstruction. No abscess or fistula. Bladder is currently nondistended. Large left renal cyst is stable from prior exam. No hydronephrosis or calculi present. Cholecystectomy, diverticulosis without evidence of diverticulitis Reviewed by: Jay Doll MD on 09/04/2021 4:21 PM [place] Approved by: Jay Doll MD on 09/04/2021 4:21 PM AKST Station ID: [id number]
[2021-09-04] MEDS: POTASSIUM CHLOR 10 MEQ/100 ML 10 MEQ/100 ML BAG IV SCH ×2 (17:49→18:48)
[2021-09-04] MEDS: SODIUM CHLORIDE FLUSH 0.9% 10 ML SYRINGE IVP SCH (17:49)
[2021-09-04] MEDS: SODIUM CHLORIDE 0.45% 1,000 ML IV SCH (17:49)
[2021-09-04] MEDS ORDERED: SODIUM CHLORIDE 0.9% 0 ML IV ONE (17:50)
[2021-09-04] MEDS: APIXABAN 5 MG TABLET PO SCH (21:09)
[2021-09-04] MEDS: NYSTATIN POWDER 15 GM TOP SCH (21:09)
[2021-09-04] MEDS: INSULIN ASPART 300 UNIT/3 ML PEN SUBQ SCH (21:09)
[2021-09-04] MEDS: INSULIN GLARGINE 300 UNIT/3 ML PEN SUBQ SCH (21:10)
[2021-09-05] MEDS: SODIUM CHLORIDE FLUSH 0.9% 10 ML SYRINGE IVP SCH ×4 (02:03→23:48)
[2021-09-05] MEDS: SODIUM CHLORIDE 0.45% 1,000 ML IV SCH ×2 (05:27→21:03)
[2021-09-05 05:35] LABS: BASOPHILS # (AUTO) 0.1 10^3/uL (0.0-0.1); BASOPHILS % (AUTO) 0.4 %; EOSINOPHILS # (AUTO) 0.1 10^3/uL (0.0-0.7); EOSINOPHILS % (AUTO) 0.5 %; HCT - HEMATOCRIT 38.2 % (42.0-52.0); HGB - HEMOGLOBIN 13.7 g/dL (14.0-18.0); LYMPHOCYTES # (AUTO) 1.5 10^3/uL (1.5-3.5); LYMPHOCYTES % (AUTO) 8.7 %; MEAN CORPUSCULAR HEMOGLOBIN 33.3 pg (27.0-31.0); MEAN CORPUSCULAR HGB CONC 35.9 g/dL (32.0-36.0); MEAN CORPUSCULAR VOLUME 92.7 fL (80.0-94.0); MEAN PLATELET VOLUME 9.9 fL (7.4-11.4); MONOCYTES # (AUTO) 0.9 10^3/uL (0.0-1.0); MONOCYTES % (AUTO) 5.6 %; PLT - PLATELET COUNT 169 10^3/uL (130-450); RED BLOOD COUNT 4.12 10^6/uL (4.70-6.10); RED CELL DISTRIBUTION WIDTH 12.7 % (12.0-15.0); WHITE BLOOD COUNT 16.6 x10^3/uL (4.8-10.8)
[2021-09-05 05:41] LABS: CALCIUM 8.7 mg/dL (8.5-10.3); CREATININE 0.9 mg/dL (0.6-1.2); POTASSIUM 3.2 mmol/L (3.5-5.0)
--- NOTE | 2021-09-05 07:33 | PROVIDER PROGRESS NOTE ---
Subjective - Prog Note Date Prog Note Date: 09/05/21 - Subjective Pt reports feeling: Improved Subjective: Reports he is "feeling much better" than yesterday. Slept well overnight. Denies nausea, chest pain, dysuria, or abdominal pain. Has no concerns this morning. Objective - Vital Signs/Intake & Output Reviewed Vital Signs: Yes Vital Signs: Vital Signs x48h Temp Pulse Resp BP Pulse Ox 09/05/21 05:00 36.7 C 107 H 18 151/75 H 96 09/05/21 00:48 36.9 C 102 H 18 159/59 H 93 Intake & Output: Intake & Output 09/02/21 09/03/21 09/04/21 09/05/21 23:59 23:59 23:59 23:59 Intake Total 904.576 1289.441 Output Total 400 550 Balance 138.333 539.441 - Objective General Appearance: positive: No acute distress, Alert, Mild distress Eyes Bilateral: positive: Normal inspection, PERRL, Conjunctivae nml, No scleral icterus ENT: positive: ENT inspection nml, No signs of dehydration Respiratory: positive: Chest non-tender, No respiratory distress, Breath sounds nml Cardiovascular: positive: No murmur, Irregularly irregular Peripheral Pulses: 2+ Dorsalis pedis (R), 2+ Dorsalis pedis (L) Abdomen: positive: Non-tender, No organomegaly, Nml bowel sounds, No distention Skin: positive: Color nml, No rash, Warm, Dry Extremities: positive: Non-tender, Full ROM, Nml appearance Neurologic/Psychiatric: positive: Oriented x3, Sensation nml - Lab Results Fish Bones: 09/05/21 05:10 09/05/21 14:55 Other Labs: Lab Results x24hrs 09/05/21 09/05/21 09/04/21 Range/Units 05:10 05:10 15:12 WBC 16.6 H (4.8-10.8) x10^3/uL RBC 4.12 L (4.70-6.10) 10^6/uL Hgb 13.7 L (14.0-18.0) g/dL Hct 38.2 L (42.0-52.0) % MCV 92.7 (80.0-94.0) fL MCH 33.3 H (27.0-31.0) pg MCHC 35.9 (32.0-36.0) g/dL RDW 12.7 (12.0-15.0) % Plt Count 169 (130-450) 10^3/uL MPV 9.9 (7.4-11.4) fL Neut # (Auto) 14.0 H (1.5-6.6) 10^3/uL Lymph # (Auto) 1.5 (1.5-3.5) 10^3/uL Clarke # (Auto) 0.9 (0.0-1.0) 10^3/uL Eos # (Auto) 0.1 (0.0-0.7) 10^3/uL Baso # (Auto) 0.1 (0.0-0.1) 10^3/uL Absolute Nucleated RBC 0.00 x10^3/uL Nucleated RBC % 0.0 /100WBC Sodium 137 (135-145) mmol/L Potassium 3.2 L (3.5-5.0) mmol/L Chloride 100 L (101-111) mmol/L Carbon Dioxide 27 (21-32) mmol/L Anion Gap 10.0 (6-13) BUN 22 H (6-20) mg/dL Creatinine 0.9 (0.6-1.2) mg/dL Estimated GFR (MDRD) 82 L (>89) Glucose 122 H (70-100) mg/dL Lactic Acid 1.5 (0.5-2.2) mmol/L Calcium 8.7 (8.5-10.3) mg/dL Total Bilirubin (0.2-1.0) mg/dL AST (10-42) IU/L ALT (10-60) IU/L Alkaline Phosphatase (42-121) IU/L Total Protein (6.7-8.2) g/dL Albumin (3.2-5.5) g/dL Globulin (2.1-4.2) g/dL Albumin/Globulin Ratio (1.0-2.2) Urine Color Urine Clarity (CLEAR) Urine pH (5.0-7.5) PH Ur Specific [place] (1.002-1.030) Urine Protein (NEGATIVE) mg/dL Urine Glucose (UA) (NEGATIVE) mg/dL Urine Ketones (NEGATIVE) mg/dL Urine Occult Blood (NEGATIVE) Urine Nitrite (NEGATIVE) Urine Bilirubin (NEGATIVE) Urine Urobilinogen (NORMAL) E.U./dL Ur Leukocyte Esterase (NEGATIVE) Urine RBC (0-5) /HPF Urine WBC (0-3) /HPF Ur Squamous Epith Cells (<= Few) Urine Bacteria (None Seen) /HPF Urine Culture Comments Nasal Adenovirus (PCR) Nasal B. parapertussis DNA (PCR) Nasal Coronavir 229E PCR Nasal Coronavir HKU1 PCR Nasal Coronavir NL63 PCR Nasal Coronavir OC43 PCR Nasal Enterovir/Rhinovir PCR Nasal Influenza B PCR Nasal Influenza A PCR Nasal Parainfluen 1 PCR Nasal Parainfluen 2 PCR Nasal Parainfluen 3 PCR Nasal Parainfluen 4 PCR Nasal RSV (PCR) Nasal B.pertussis DNA PCR Nasal C.pneumoniae (PCR) Ed Human Metapneumo PCR Nasal M.pneumoniae (PCR) Nasal SARS-CoV-2 (PCR) 09/04/21 09/04/21 09/04/21 Range/Units 15:12 15:12 14:27 WBC 17.8 H (4.8-10.8) x10^3/uL RBC 4.52 L (4.70-6.10) 10^6/uL Hgb 14.7 (14.0-18.0) g/dL Hct 41.9 L (42.0-52.0) % MCV 92.7 (80.0-94.0) fL MCH 32.5 H (27.0-31.0) pg MCHC 35.1 (32.0-36.0) g/dL RDW 12.7 (12.0-15.0) % Plt Count 178 (130-450) 10^3/uL MPV 9.5 (7.4-11.4) fL Neut # (Auto) 15.6 H (1.5-6.6) 10^3/uL Lymph # (Auto) 0.8 L (1.5-3.5) 10^3/uL Clarke # (Auto) 1.3 H (0.0-1.0) 10^3/uL Eos # (Auto) 0.0 (0.0-0.7) 10^3/uL Baso # (Auto) 0.1 (0.0-0.1) 10^3/uL Absolute Nucleated RBC 0.00 x10^3/uL Nucleated RBC % 0.0 /100WBC Sodium 136 (135-145) mmol/L Potassium 3.2 L (3.5-5.0) mmol/L Chloride 99 L (101-111) mmol/L Carbon Dioxide 25 (21-32) mmol/L Anion Gap 12.0 (6-13) BUN 23 H (6-20) mg/dL Creatinine 0.9 (0.6-1.2) mg/dL Estimated GFR (MDRD) 82 L (>89) Glucose 174 H (70-100) mg/dL Lactic Acid (0.5-2.2) mmol/L Calcium 8.8 (8.5-10.3) mg/dL Total Bilirubin 4.6 H (0.2-1.0) mg/dL AST 15 (10-42) IU/L ALT 15 (10-60) IU/L Alkaline Phosphatase 47 (42-121) IU/L Total Protein 6.5 L (6.7-8.2) g/dL Albumin 3.6 (3.2-5.5) g/dL Globulin 2.9 (2.1-4.2) g/dL Albumin/Globulin Ratio 1.2 (1.0-2.2) Urine Color Urine Clarity (CLEAR) Urine pH (5.0-7.5) PH Ur Specific [place] (1.002-1.030) Urine Protein (NEGATIVE) mg/dL Urine Glucose (UA) (NEGATIVE) mg/dL Urine Ketones (NEGATIVE) mg/dL Urine Occult Blood (NEGATIVE) Urine Nitrite (NEGATIVE) Urine Bilirubin (NEGATIVE) Urine Urobilinogen (NORMAL) E.U./dL Ur Leukocyte Esterase (NEGATIVE) Urine RBC (0-5) /HPF Urine WBC (0-3) /HPF Ur Squamous Epith Cells (<= Few) Urine Bacteria (None Seen) /HPF Urine Culture Comments Nasal Adenovirus (PCR) NOT DETECTED Nasal B. parapertussis DNA (PCR) NOT DETECTED Nasal Coronavir 229E PCR NOT DETECTED Nasal Coronavir HKU1 PCR NOT DETECTED Nasal Coronavir NL63 PCR NOT DETECTED Nasal Coronavir OC43 PCR NOT DETECTED Nasal Enterovir/Rhinovir PCR NOT DETECTED Nasal Influenza B PCR NOT DETECTED Nasal Influenza A PCR NOT DETECTED Nasal Parainfluen 1 PCR NOT DETECTED Nasal Parainfluen 2 PCR NOT DETECTED Nasal Parainfluen 3 PCR NOT DETECTED Nasal Parainfluen 4 PCR NOT DETECTED Nasal RSV (PCR) NOT DETECTED Nasal B.pertussis DNA PCR NOT DETECTED Nasal C.pneumoniae (PCR) NOT DETECTED Ed Human Metapneumo PCR NOT DETECTED Nasal M.pneumoniae (PCR) NOT DETECTED Nasal SARS-CoV-2 (PCR) NOT DETECTED 09/04/21 Range/Units 14:24 WBC (4.8-10.8) x10^3/uL RBC (4.70-6.10) 10^6/uL Hgb (14.0-18.0) g/dL Hct (42.0-52.0) % MCV (80.0-94.0) fL MCH (27.0-31.0) pg MCHC (32.0-36.0) g/dL RDW (12.0-15.0) % Plt Count (130-450) 10^3/uL MPV (7.4-11.4) fL Neut # (Auto) (1.5-6.6) 10^3/uL Lymph # (Auto) (1.5-3.5) 10^3/uL Clarke # (Auto) (0.0-1.0) 10^3/uL Eos # (Auto) (0.0-0.7) 10^3/uL Baso # (Auto) (0.0-0.1) 10^3/uL Absolute Nucleated RBC x10^3/uL Nucleated RBC % /100WBC Sodium (135-145) mmol/L Potassium (3.5-5.0) mmol/L Chloride (101-111) mmol/L Carbon Dioxide (21-32) mmol/L Anion Gap (6-13) BUN (6-20) mg/dL Creatinine (0.6-1.2) mg/dL Estimated GFR (MDRD) (>89) Glucose (70-100) mg/dL Lactic Acid (0.5-2.2) mmol/L Calcium (8.5-10.3) mg/dL Total Bilirubin (0.2-1.0) mg/dL AST (10-42) IU/L ALT (10-60) IU/L Alkaline Phosphatase (42-121) IU/L Total Protein (6.7-8.2) g/dL Albumin (3.2-5.5) g/dL Globulin (2.1-4.2) g/dL Albumin/Globulin Ratio (1.0-2.2) Urine Color YELLOW Urine Clarity CLOUDY (CLEAR) Urine pH 6.0 (5.0-7.5) PH Ur Specific [place] 1.020 (1.002-1.030) Urine Protein 100 H (NEGATIVE) mg/dL Urine Glucose (UA) NEGATIVE (NEGATIVE) mg/dL Urine Ketones TRACE (NEGATIVE) mg/dL Urine Occult Blood MODERATE H (NEGATIVE) Urine Nitrite NEGATIVE (NEGATIVE) Urine Bilirubin NEGATIVE (NEGATIVE) Urine Urobilinogen 1 (NORMAL) (NORMAL) E.U./dL Ur Leukocyte Esterase MODERATE H (NEGATIVE) Urine RBC 11-25 H (0-5) /HPF Urine WBC >25 H (0-3) /HPF Ur Squamous Epith Cells RARE Squamous (<= Few) Urine Bacteria Many H (None Seen) /HPF Urine Culture Comments INDICATED Nasal Adenovirus (PCR) Nasal B. parapertussis DNA (PCR) Nasal Coronavir 229E PCR Nasal Coronavir HKU1 PCR Nasal Coronavir NL63 PCR Nasal Coronavir OC43 PCR Nasal Enterovir/Rhinovir PCR Nasal Influenza B PCR Nasal Influenza A PCR Nasal Parainfluen 1 PCR Nasal Parainfluen 2 PCR Nasal Parainfluen 3 PCR Nasal Parainfluen 4 PCR Nasal RSV (PCR) Nasal B.pertussis DNA PCR Nasal C.pneumoniae (PCR) Ed Human Metapneumo PCR Nasal M.pneumoniae (PCR) Nasal SARS-CoV-2 (PCR) ABX Reporting Has patient been on IV antibiotics over the past 48 hours?: Yes Sepsis Event Note (H) - Evaluation Current Stage of Sepsis: Sepsis Possible source of Sepsis: positive: Genitourinary - Sepsis Criteria Sepsis Criteria: Recorded Temperature greater than 38.3C or Less than 36C, Recorded Heart Rate greater than 90 bpm, WBC count greater than 12,000 or less than 4000 Assessment/Plan - Problem List (1) Sepsis Impression: He has been afebrile overnight. Tachycardic 96-107. WBC trending down, 16.6 from 17.8. Urine culture was sent to microbiology on admission, currently growi ng gram negative organisms. Rocephin continued until sensitivities return. Pt reportedly had a temp to 101.4 at home, was found to be 39.6 C in the ED. Tachycardic to 120, BP 190/100, WBC 17.8. UA and culture were sent to the lab, UA revealed a UTI. He was started on IV fluids for dehydration and Rocephin while awaiting culture and sensitivities. CT abdomen and pelvis showing prostatic hypertrophy with possible chronic bladder outlet obstruction but no abscess, fistula, or hydronephrosis. Reports feeling week but denies nausea, skin issues, or pain. He was initially encephalopathic in the ER but has cleared and is now oriented to self, place, and birthday. Thought it was September at first but able to state 2021. -Continue daily CBC to trend WBC -Continue Rocephin until culture and sensitivities return -IVF -Monitor vitals Qualifiers: Sepsis type: sepsis due to unspecified organism Sepsis acute organ dysfunction status: with acute organ dysfunction Severe sepsis acute organ dysfunction type: encephalopathy Severe sepsis shock status: without septic shock Qualified Code(s): A41.9 - Sepsis, unspecified organism; R65.20 - Severe sepsis without septic shock; G93.40 - Encephalopathy, unspecified (2) UTI (urinary tract infection) Impression: UA positive for UTI. Denies dysuria or hematuria. Continued on Rocephin, will tailor as needed when culture and sensitivities return. Qualifiers: Urinary tract infection type: acute pyelonephritis Qualified Code(s): N10 - Acute pyelonephritis (3) Atrial fibrillation Impression: This is chronic for him and he takes Eliquis at home. HR initially in the 120- 130s, now low 100s. Eliquis and Metoprolol were restarted, will plan to restart other home meds once med reconciliation has been completed by Pharmacy. May require IV meds for rate control if he increases again to the 120s-130s, will continue to monitor. -Telemetry -Resume Eliquis and home meds once med rec completed Qualifiers: Atrial fibrillation type: longstanding persistent Qualified Code(s): I48.11 - Longstanding persistent atrial fibrillation (4) Type 2 diabetes mellitus Impression: A1C 7.3. On chart review he takes Glargine 25 units at night, this was reordered with low dose sliding scale. Will encourage oral intake and continue to monitor. -BG ac/hs with SSI -Glargine 25units Qpm Qualifiers: Diabetes mellitus shelter insulin use: with termite technician use Diabetes mellitus complication status: without complication Qualified Code(s): E11.9 - Type 2 diabetes mellitus without complications; Z79.4 - medical terminologist (current) use of insulin (5) Hypertension Impression: Blood pressures have been 140s-160s/5-80s. Takes multiple medications at home for HTN and afib, will plan to resume once med reconciliation has been completed. Will continue to monitor and treat with IV if needed. -Resume home meds when able Qualifiers: Hypertension type: primary hypertension Qualified Code(s): I10 - Essential (primary) hypertension (6) Asthma Impression: This is long standing. He takes daily prednisone. Is not currently in an exacerbation, denies shortness of breath and no wheezing noted on exam. I have ordered 3 days of hydrocortisone 100mg IV daily (today is day 2) and will resume prednisone after. 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 (8) BPH (benign prostatic hyperplasia) Impression: Pt reports history of BPH but has never been treated. Has had difficulty initiating a stream "forever" but denies hematuria or dysuria. Abdomen/pelvic CT noted prostate gland enlarged with smooth bladder wall thicknening which ma be sequela of chronic bladder outlet obstruction. Bladder non-distended. He is agreeable to starting Flomax today and will need to follow up with his PCP after discharge. Qualifiers: Lower urinary tract symptom detail: urinary hesitancy (9) Chronic sinusitis Impression: Reports chronic sinusitis, no current symptoms. Qualifiers: Sinusitis location: pansinusitis Qualified Code(s): J32.4 - Chronic pansinusitis
[2021-09-05] MEDS: INSULIN ASPART 300 UNIT/3 ML PEN SUBQ SCH ×4 (08:17→21:02)
[2021-09-05] MEDS ORDERED: cefTRIAXone 1 GM in SODIUM CHLORIDE 0.9% MINIBAG 100 ML IV SCH (09:00)
[2021-09-05] MEDS: POTASSIUM CHLOR 10 MEQ/100 ML 10 MEQ/100 ML BAG IV SCH ×2 (09:25→09:45)
[2021-09-05] MEDS: APIXABAN 5 MG TABLET PO SCH ×2 (09:25→21:01)
[2021-09-05] MEDS: HYDROCORTISONE SUCCINATE 100 MG/2 ML VIAL IVP SCH (09:25)
[2021-09-05] MEDS: NYSTATIN POWDER 15 GM TOP SCH ×2 (09:26→21:03)
[2021-09-05 12:21] LABS: ESTIMATED AVERAGE GLUCOSE 163 mg/dL (70-100); HEMOGLOBIN A1c% 7.3 % (4.27-6.07)
[2021-09-05 15:21] LABS: CALCIUM 8.6 mg/dL (8.5-10.3); CREATININE 0.9 mg/dL (0.6-1.2); POTASSIUM 3.7 mmol/L (3.5-5.0)
[2021-09-05] MEDS: TAMSULOSIN 0.4 MG CAPSULE PO SCH (16:37)
[2021-09-05] MEDS: INSULIN GLARGINE 300 UNIT/3 ML PEN SUBQ SCH (21:01)
[2021-09-05] MEDS: METOPROLOL TARTRATE 25 MG TABLET PO SCH (21:01)
[2021-09-06 05:51] LABS: BASOPHILS % (AUTO) 0.4 %; EOSINOPHILS # (AUTO) 0.2 10^3/uL (0.0-0.7); EOSINOPHILS % (AUTO) 1.5 %; HCT - HEMATOCRIT 40.5 % (42.0-52.0); HGB - HEMOGLOBIN 14.3 g/dL (14.0-18.0); LYMPHOCYTES # (AUTO) 1.1 10^3/uL (1.5-3.5); LYMPHOCYTES % (AUTO) 9.4 %; MEAN CORPUSCULAR HEMOGLOBIN 32.9 pg (27.0-31.0); MEAN CORPUSCULAR HGB CONC 35.3 g/dL (32.0-36.0); MEAN CORPUSCULAR VOLUME 93.3 fL (80.0-94.0); MEAN PLATELET VOLUME 9.7 fL (7.4-11.4); MONOCYTES # (AUTO) 0.5 10^3/uL (0.0-1.0); MONOCYTES % (AUTO) 4.3 %; NEUTROPHILS # (AUTO) 9.4 10^3/uL (1.5-6.6); NEUTROPHILS % (AUTO) 84.1 %; PLT - PLATELET COUNT 182 10^3/uL (130-450); RED BLOOD COUNT 4.34 10^6/uL (4.70-6.10); RED CELL DISTRIBUTION WIDTH 12.4 % (12.0-15.0); WHITE BLOOD COUNT 11.2 x10^3/uL (4.8-10.8)
[2021-09-06 06:00] LABS: CALCIUM 8.7 mg/dL (8.5-10.3); POTASSIUM 3.1 mmol/L (3.5-5.0)
[2021-09-06] MEDS ORDERED: POTASSIUM CHLORIDE 20 MEQ TABLET PO ONE (07:35)
[2021-09-06] MEDS: METOPROLOL TARTRATE 25 MG TABLET PO SCH ×2 (08:32→22:02)
--- NOTE | 2021-09-06 09:19 | PROVIDER PROGRESS NOTE ---
Assessment/Plan - Problem List (1) Sepsis Qualifiers: Sepsis type: Escherichia coli Sepsis acute organ dysfunction status: with acute organ dysfunction Severe sepsis acute organ dysfunction type: encephalopathy Severe sepsis shock status: without septic shock Qualified Code(s): A41.51 - Sepsis due to Escherichia coli [E. coli]; R65.20 - Severe sepsis without septic shock; G93.41 - Metabolic encephalopathy Assessment/Plan: He presented with confusion, too weak to stand and a temp to 101.4 at home, was found to be 39.6 C in the ED. Tachycardic to 120, BP 190/100, WBC 17.8. UA revealed a UTI. He has been afebrile overnight. WBC trending down,17>, 16>> 11 today. Urine culture is growing ESBL-producing E coli. He is no longer confused or feeling weak. Will change antibiotics and today is Day #1 of proper antibiotic treatment. (2) E coli UTI (urinary tract infection) Impression: Urine cx grew E coli and he was on empirc Ceftriaxone. Denies dysuria or hematuria. Will change antibiotics and today is Day #1 of proper antibiotic treatment. Plan will be for 2 weeks minimum of antibx for a UTI in a male. If he has no bacteremia, from final blood cx results, then he will be transitioned to po antibx for the rest of his antibx course. Qualifiers: Urinary tract infection type: acute pyelonephritis Qualified Code(s): N10 - Acute pyelonephritis (3) ESBL producing E coli Impression: Based on sensitivities, will change antibiotics from iv Ceftriaxone to iv Meropenam, and today is Day #1 of proper antibiotic treatment. A minimum 2 week course of treatment is planned. If he has no bacteremia, from final blood cx results, then he will be transitioned to po antibx for the rest of his antibx course. (4) Atrial fibrillation Impression: This is chronic for him and he takes Eliquis at home. HR initially in the 120- 130s, now improved. Eliquis and Metoprolol were restarted. Continue telemetry. Qualifiers: Atrial fibrillation type: longstanding persistent Qualified Code(s): I48.11 - Longstanding persistent atrial fibrillation (5) Type 2 diabetes mellitus Impression: A1C 7.3. On chart review he takes Glargine at night but from Pharmacy it is daytime. Glargine and low dose sliding scale and carb controlled diet are ordered. Carb control diet ordered and continue to monitor. Qualifiers: Diabetes mellitus usp insulin use: with usp use Diabetes mellitus complication status: without complication Qualified Code(s): E11.9 - Type 2 diabetes mellitus without complications; Z79.4 - retirement (current) use of insulin (6) Hypertension Impression: Blood pressures have been 140s-160s/50-80s. Takes multiple medications at home for HTN and afib. Unclear why he is on Lasix at home. Will continue to monitor and treat BP. Qualifiers: Hypertension type: primary hypertension Qualified Code(s): I10 - Essential (primary) hypertension (7) Asthma Impression: This is long standing. He takes daily prednisone ans uses Albuterol prn. He is not currently in an exacerbation, denies shortness of breath and no wheezing noted on exam. We have ordered 3 days of Hydrocortisone 100mg IV daily (today is day #2), to prevent Addisonian crisis, and will resume po Prednisone after that. Continue prn Albuterol. 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 (9) BPH (benign prostatic hyperplasia) Impression: Pt reports history of BPH but has never been treated. Has had difficulty initiating a stream "forever" but denies hematuria or dysuria. Abdomen/pelvic CT noted prostate gland enlarged with smooth bladder wall thicknening which may be sequela of chronic bladder outlet obstruction. Bladder non-distended on imaging . He was agreeable to starting Flomax and probably forgot he takes Cardura at home, which will be resumed today. Cont follow up with his PCP/Urology after discharge. Qualifiers: Lower urinary tract symptom detail: urinary hesitancy (10) Chronic sinusitis Impression: Reports chronic sinusitis, no current symptoms. Qualifiers: Sinusitis location: pansinusitis Qualified Code(s): J32.4 - Chronic pansinusitis - Current Meds Current Meds: Current Medications Generic Name Dose Route Start Last Admin Trade Name Freq PRN Reason Stop Dose Admin Apixaban 5 mg 09/04/21 21:00 09/05/21 21:01 Apixaban 5 Mg Tablet PO 5 mg BID MELISA Administration Hydrocortisone Sodium Succinate 100 mg 09/05/21 09:00 09/05/21 09:25 Hydrocortisone Succinate 100 Mg/2 Ml Vial IVP 09/08/21 08:59 100 mg DAILY MELISA Administration Sodium Chloride 1,000 mls @ 83.333 mls/hr 09/04/21 17:00 09/05/21 21:03 Normal Saline 0.45% IV 83.333 mls/hr .Q12H MELISA Administration Insulin Glargine 25 unit 09/04/21 21:00 09/05/21 21:01 Insulin Glargine 300 Unit/3 Ml Pen SUBQ 25 unit QPM MELISA Administration Metoprolol Tartrate 25 mg 09/05/21 21:00 09/06/21 08:32 Metoprolol Tartrate 25 Mg Tablet PO 25 mg BID MELISA Administration Nystatin 1 applic 09/04/21 21:00 09/05/21 21:03 Nystatin Powder 15 Gm TOP 1 applic BID MELISA Administration Sodium Chloride 10 ml 09/04/21 17:00 09/05/21 23:48 Sodium Chloride Flush 0.9% 10 Ml Syringe IVP Not Given 0100,0900,1700 MELISA Tamsulosin HCl 0.4 mg 09/05/21 16:00 09/05/21 16:37 Tamsulosin 0.4 Mg Capsule PO 0.4 mg DAILY MELISA Administration - Lab Result Fish Bone Diagrams: 09/06/21 05:29 09/06/21 05:29 - Additional Planning My Orders: My Active Orders 09/06/21 08:00 Potassium Chlor 10 Meq/100 ml [Potassium Chloride] 10 meq in 100 ml IV Q1H 09/06/21 10:00 Levofloxacin/D5W 750 mg/150 mL q24h levoFLOXacin 750 MG/150 ML [Levaquin 750 mg/150 ml] 750 mg in 150 ml IV Q24H Subjective - Subjective Patient Reports: Resting Comfortably, No Complaints Nursing Reports: Other (Less forgetful) Objective Vital Signs: Vital Signs - 24 hr 09/05/21 09/05/21 09/05/21 13:00 17:00 19:00 Temperature 37.2 C 36.7 C Heart Rate [ 100 102 H Brachial] Heart Rate [ Monitoring electrodes] Respiratory 20 20 Rate Blood Pressure Blood Pressure [Left Brachial artery] Blood Pressure 158/83 H 185/96 H 144/74 H [Right Brachial artery] O2 Saturation 94 95 01/30/22 01/30/22 01/30/22 21:00 21:01 23:47 Temperature 36.6 C 36.9 C Heart Rate [ 95 77 Brachial] Heart Rate [ Monitoring electrodes] Respiratory 18 20 Rate Blood Pressure 180/92 H Blood Pressure [Left Brachial artery] Blood Pressure 168/86 H 146/96 H [Right Brachial artery] O2 Saturation 98 99 09/06/21 09/06/21 09/06/21 03:03 06:44 07:38 Temperature 36.3 C L 36.8 C 36.7 C Heart Rate [ 100 102 H 102 H Brachial] Heart Rate [ Monitoring electrodes] Respiratory 18 18 18 Rate Blood Pressure Blood Pressure 176/109 H [Left Brachial artery] Blood Pressure 144/113 H 113/83 H 156/122 H [Right Brachial artery] O2 Saturation 95 95 94 09/06/21 09/06/21 07:59 08:32 Temperature 36.8 C Heart Rate [ Brachial] Heart Rate [ 104 H Monitoring electrodes] Respiratory Rate Blood Pressure 194/96 H Blood Pressure [Left Brachial artery] Blood Pressure 194/96 H [Right Brachial artery] O2 Saturation Oxygen O2 Source Room air I&O (Last 24 Hrs): Intake and Output Totals x24h 09/04/21 09/05/21 09/06/21 23:59 23:59 23:59 Intake Total 746.784 9323.774 Output Total 400 1400 300 Balance 423.998 4868.774 -300 General: Alert, Oriented x3 HEENT: Mucous membr. moist/pink Neck: Supple Neuro: Alert, Non Focal Cardiovascular: Regular rate, No murmurs Respiratory: No respiratory distress Abdomen: Soft Extremities: No clubbing, No edema - Results Results: Laboratory Results WBC 11.2 x10^3/uL (4.8-10.8) H 09/06/21 05:29 RBC 4.34 10^6/uL (4.70-6.10) L 09/06/21 05:29 Hgb 14.3 g/dL (14.0-18.0) 09/06/21 05:29 Hct 40.5 % (42.0-52.0) L 09/06/21 05:29 MCV 93.3 fL (80.0-94.0) 09/06/21 05:29 MCH 32.9 pg (27.0-31.0) H 09/06/21 05:29 MCHC 35.3 g/dL (32.0-36.0) 09/06/21 05:29 RDW 12.4 % (12.0-15.0) 09/06/21 05:29 Plt Count 182 10^3/uL (130-450) 09/06/21 05:29 MPV 9.7 fL (7.4-11.4) 09/06/21 05:29 Neut # (Auto) 9.4 10^3/uL (1.5-6.6) H 09/06/21 05:29 Lymph # (Auto) 1.1 10^3/uL (1.5-3.5) L 09/06/21 05:29 [place] # (Auto) 0.5 10^3/uL (0.0-1.0) 09/06/21 05:29 Eos # (Auto) 0.2 10^3/uL (0.0-0.7) 09/06/21 05:29 Baso # (Auto) 0.0 10^3/uL (0.0-0.1) 09/06/21 05:29 Absolute Nucleated RBC 0.00 x10^3/uL 09/06/21 05:29 Nucleated RBC % 0.0 /100WBC 09/06/21 05:29 Sodium 136 mmol/L (135-145) 09/06/21 05:29 Potassium 3.1 mmol/L (3.5-5.0) L 09/06/21 05:29 Chloride 101 mmol/L (101-111) 09/06/21 05:29 Carbon Dioxide 26 mmol/L (21-32) 09/06/21 05:29 Anion Gap 9.0 (6-13) 09/06/21 05:29 BUN 23 mg/dL (6-20) H 09/06/21 05:29 Creatinine 1.0 mg/dL (0.6-1.2) 09/06/21 05:29 Estimated GFR (MDRD) 72 (>89) L 09/06/21 05:29 Glucose 123 mg/dL (70-100) H 09/06/21 05:29 Estimat Average Glucose 163 mg/dL (70-100) H 09/05/21 05:10 Hemoglobin A1c % 7.3 % (4.27-6.07) H 09/05/21 05:10 Lactic Acid 1.5 mmol/L (0.5-2.2) 09/04/21 15:12 Calcium 8.7 mg/dL (8.5-10.3) 09/06/21 05:29 Total Bilirubin 4.6 mg/dL (0.2-1.0) H 09/04/21 15:12 AST 15 IU/L (10-42) 09/04/21 15:12 ALT 15 IU/L (10-60) 09/04/21 15:12 Alkaline Phosphatase 47 IU/L (42-121) 09/04/21 15:12 Total Protein 6.5 g/dL (6.7-8.2) L 09/04/21 15:12 Albumin 3.6 g/dL (3.2-5.5) 09/04/21 15:12 Globulin 2.9 g/dL (2.1-4.2) 09/04/21 15:12 Albumin/Globulin Ratio 1.2 (1.0-2.2) 09/04/21 15:12 Urine Color YELLOW 09/04/21 14:24 Urine Clarity CLOUDY (CLEAR) 09/04/21 14:24 Urine pH 6.0 PH (5.0-7.5) 09/04/21 14:24 Ur Specific [place] 1.020 (1.002-1.030) 09/04/21 14:24 Urine Protein 100 mg/dL (NEGATIVE) H 09/04/21 14:24 Urine Glucose (UA) NEGATIVE mg/dL (NEGATIVE) 09/04/21 14:24 Urine Ketones TRACE mg/dL (NEGATIVE) 09/04/21 14:24 Urine Occult Blood MODERATE (NEGATIVE) H 09/04/21 14:24 Urine Nitrite NEGATIVE (NEGATIVE) 09/04/21 14:24 Urine Bilirubin NEGATIVE (NEGATIVE) 09/04/21 14:24 Urine Urobilinogen 1 (NORMAL) E.U./dL (NORMAL) 09/04/21 14:24 Ur Leukocyte Esterase MODERATE (NEGATIVE) H 09/04/21 14:24 Urine RBC 11-25 /HPF (0-5) H 09/04/21 14:24 Urine WBC >25 /HPF (0-3) H 09/04/21 14:24 Ur Squamous Epith Cells RARE Squamous (<= Few) 09/04/21 14:24 Urine Bacteria Many /HPF (None Seen) H 09/04/21 14:24 Urine Culture Comments INDICATED 09/04/21 14:24 Nasal Adenovirus (PCR) NOT DETECTED 09/04/21 14:27 Nasal B. parapertussis DNA (PCR) NOT DETECTED 09/04/21 14:27 Nasal Coronavir 229E PCR NOT DETECTED 09/04/21 14:27 Nasal Coronavir HKU1 PCR NOT DETECTED 09/04/21 14:27 Nasal Coronavir NL63 PCR NOT DETECTED 09/04/21 14:27 Nasal Coronavir OC43 PCR NOT DETECTED 09/04/21 14:27 Nasal Enterovir/Rhinovir PCR NOT DETECTED 09/04/21 14:27 Nasal Influenza B PCR NOT DETECTED 09/04/21 14:27 Nasal Influenza A PCR NOT DETECTED 09/04/21 14:27 Nasal Parainfluen 1 PCR NOT DETECTED 09/04/21 14:27 Nasal Parainfluen 2 PCR NOT DETECTED 09/04/21 14:27 Nasal Parainfluen 3 PCR NOT DETECTED 09/04/21 14:27 Nasal Parainfluen 4 PCR NOT DETECTED 09/04/21 14:27 Nasal RSV (PCR) NOT DETECTED 09/04/21 14:27 Nasal B.pertussis DNA PCR NOT DETECTED 09/04/21 14:27 Nasal C.pneumoniae (PCR) NOT DETECTED 09/04/21 14:27 Ed Human Metapneumo PCR NOT DETECTED 09/04/21 14:27 Nasal M.pneumoniae (PCR) NOT DETECTED 09/04/21 14:27 Nasal SARS-CoV-2 (PCR) NOT DETECTED 09/04/21 14:27 - Procedures Procedures: Procedures EXCISION OF CECUM, ENDO, DIAGN (01/24/18) EXCISION OF SIGMOID COLON, ENDO, DIAGN (01/24/18) Sepsis Event Note (H) - Evaluation Current Stage of Sepsis: Sepsis Possible source of Sepsis: positive: Genitourinary - Sepsis Criteria Sepsis Criteria: Recorded Temperature greater than 38.3C or Less than 36C, Recorded Heart Rate greater than 90 bpm, WBC count greater than 12,000 or less than 4000
[2021-09-06] MEDS: SODIUM CHLORIDE FLUSH 0.9% 10 ML SYRINGE IVP SCH ×2 (09:36→22:04)
[2021-09-06] MEDS: TAMSULOSIN 0.4 MG CAPSULE PO SCH (09:36)
[2021-09-06] MEDS: NYSTATIN POWDER 15 GM TOP SCH ×2 (09:37→22:07)
[2021-09-06] MEDS: APIXABAN 5 MG TABLET PO SCH ×2 (09:37→22:04)
[2021-09-06] MEDS: HYDROCORTISONE SUCCINATE 100 MG/2 ML VIAL IVP SCH (09:37)
[2021-09-06] MEDS: SODIUM CHLORIDE 0.45% 1,000 ML IV SCH (09:55)
[2021-09-06] MEDS: POTASSIUM CHLOR 10 MEQ/100 ML 10 MEQ/100 ML BAG IV SCH ×4 (09:55→15:12)
[2021-09-06] MEDS: INSULIN ASPART 300 UNIT/3 ML PEN SUBQ SCH ×4 (09:57→22:05)
[2021-09-06] MEDS: levoFLOXacin 750 MG/150 ML 750 MG/150 ML BAG IV SCH (11:08)
--- NOTE | 2021-09-06 15:11 | PHARMACY PROGRESS NOTE ---
- Best Possible Medication History Admit Date and Time: 09/04/21 1554 Processed by: Pharmacy Medication History completed: Yes Patient Interview: Completed Secondary Source(s): Spouse/Significant other, Physician records, Pharmacy records Patient and his were not very familiar with his medications. They both said his printed medication list from [facility] was the most up to date source. Patient says he receives many of his medications through [place] mail [facility]. As the person ultimately responsible for medication therapy, providers are able to order a medication from an existing home medication list in [facility] via the "Reconcile Routine" prior to Confirmation of that medication by support specialist. Such practice is discouraged except when the physician, in their clinical judgment, deems that a medical need exists for a medication without regard to previous use.
[2021-09-06] MEDS ORDERED: LORazepam 0.5 MG TABLET PO PRN (15:22)
[2021-09-06] MEDS ORDERED: FLUTICASONE NASAL SPRAY NAS PRN (15:22)
[2021-09-06] MEDS ORDERED: SODIUM CHLORIDE 0.45% 1,000 ML IV SCH (15:25)
[2021-09-06] MEDS ORDERED: ALBUTEROL NEB 2.5 MG/3 ML INH PRN (15:36)
[2021-09-06] MEDS: amLODIPine 5 MG TABLET PO SCH (17:27)
[2021-09-06] MEDS: lisinopriL 20 MG TABLET PO SCH (22:04)
[2021-09-06] MEDS: INSULIN GLARGINE 300 UNIT/3 ML PEN SUBQ SCH (22:06)
[2021-09-07] MEDS: SODIUM CHLORIDE FLUSH 0.9% 10 ML SYRINGE IVP SCH ×4 (02:52→23:45)
[2021-09-07 05:43] LABS: BASOPHILS % (AUTO) 0.4 %; EOSINOPHILS # (AUTO) 0.1 10^3/uL (0.0-0.7); EOSINOPHILS % (AUTO) 1.6 %; HCT - HEMATOCRIT 37.8 % (42.0-52.0); HGB - HEMOGLOBIN 13.4 g/dL (14.0-18.0); LYMPHOCYTES # (AUTO) 1.5 10^3/uL (1.5-3.5); LYMPHOCYTES % (AUTO) 18.9 %; MEAN CORPUSCULAR HEMOGLOBIN 32.8 pg (27.0-31.0); MEAN CORPUSCULAR HGB CONC 35.4 g/dL (32.0-36.0); MEAN CORPUSCULAR VOLUME 92.4 fL (80.0-94.0); MEAN PLATELET VOLUME 9.5 fL (7.4-11.4); MONOCYTES # (AUTO) 0.7 10^3/uL (0.0-1.0); MONOCYTES % (AUTO) 8.9 %; NEUTROPHILS # (AUTO) 5.4 10^3/uL (1.5-6.6); NEUTROPHILS % (AUTO) 69.8 %; PLT - PLATELET COUNT 209 10^3/uL (130-450); RED BLOOD COUNT 4.09 10^6/uL (4.70-6.10); RED CELL DISTRIBUTION WIDTH 12.5 % (12.0-15.0); WHITE BLOOD COUNT 7.7 x10^3/uL (4.8-10.8)
[2021-09-07 05:52] LABS: CALCIUM 9.1 mg/dL (8.5-10.3); POTASSIUM 3.4 mmol/L (3.5-5.0)
[2021-09-07] MEDS: PANTOPRAZOLE 40 MG TABLET PO SCH (06:55)
--- NOTE | 2021-09-07 07:46 | PROVIDER PROGRESS NOTE ---
Subjective - Prog Note Date Prog Note Date: 09/07/21 Prog Note Time: 12:48 - Subjective Subjective: He is awake eating breakfast, watching TV and staying up-to-date on the sports in the news. He says he feels so much better than when he was admitted. His mind is cleared and that fog is gone away. But his legs still feel rubbery and weak. He can get up to walk to the bathroom. Prior to admission this gentleman was doing things like weed eating in the yard and he cannot believe how much weaker he is gotten. He denies chest pain, fevers, chills. No abdominal pain. No shortness of breath Current Medications - Current Medications Current Medications: Active Medications Albuterol (Albuterol Neb 2.5 Mg/3 Ml) 2.5 mg INH RTQ4H PRN PRN Reason: Wheezing Amlodipine Besylate (Amlodipine 5 Mg Tablet) 5 mg PO DAILY [facility] Last Admin: 09/06/21 17:27 Dose: 5 mg Apixaban (Apixaban 5 Mg Tablet) 5 mg PO BID [facility] Last Admin: 09/06/21 22:04 Dose: 5 mg Doxazosin Mesylate (Doxazosin 4 Mg Tablet) 4 mg PO DAILY [facility] Fluticasone Propionate (Fluticasone Nasal [place]) 2 sprays [place] DAILY PRN PRN Reason: Nasal Congestion Hydrocortisone Sodium Succinate (Hydrocortisone Succinate 100 Mg/2 Ml Vial) 100 mg IVP DAILY [facility] Stop: 09/08/21 08:59 Last Admin: 09/06/21 09:37 Dose: 100 mg Levofloxacin (Levaquin 750 Mg/150 Ml) 750 mg in 150 mls @ 100 mls/hr IV Q24H [facility] Last Infusion: 09/06/21 12:55 Dose: Infused Sodium Chloride (Normal Saline 0.45%) 1,000 mls @ 0 mls/hr IV .Q0M [facility] Insulin Aspart (Insulin Aspart 300 Unit/3 Ml Pen) 1 - 9 unit SUBQ 080 0,1200,1700,2100 [facility]; Protocol Last Admin: 09/06/21 22:05 Dose: 5 unit Insulin Glargine (Insulin Glargine 300 Unit/3 Ml Pen) 25 unit SUBQ QPM [facility] Last Admin: 09/06/21 22:06 Dose: 25 unit Lisinopril (Lisinopril 20 Mg Tablet) 20 mg PO BID [facility] Last Admin: 09/06/21 22:04 Dose: 20 mg Lorazepam (Lorazepam 0.5 Mg Tablet) 0.5 mg PO BID PRN PRN Reason: Anxiety Metoprolol Tartrate (Metoprolol Tartrate 25 Mg Tablet) 25 mg PO BID [facility] Last Admin: 09/06/21 22:02 Dose: 25 mg Nystatin (Nystatin Powder 15 Gm) 1 applic TOP BID [facility] Last Admin: 09/06/21 22:07 Dose: 1 applic Ondansetron HCl (Ondansetron 4 Mg/2 Ml Vial) 4 mg IVP Q6HR PRN PRN Reason: Nausea / Vomiting Pantoprazole Sodium (Pantoprazole 40 Mg Tablet) 40 mg PO QDAC [facility] Last Admin: 09/07/21 06:55 Dose: 40 mg Prednisone (Prednisone 10 Mg Tablet) 10 mg PO DAILY [facility] Sodium Chloride (Sodium Chloride Flush 0.9% 10 Ml Syringe) 10 ml IVP PRN PRN PRN Reason: NEEDED PER PROVIDER ORDERS Sodium Chloride (Sodium Chloride Flush 0.9% 10 Ml Syringe) 10 ml IVP 0100,0900,1700 [facility] Last Admin: 09/07/21 02:52 Dose: Not Given Doxazosin [Cardura] 4 mg PO DAILY 02/15/13 Metformin HCl 1,000 mg PO BID 02/15/13 Cholecalciferol (Vitamin D3) [Vitamin D] 2,000 unit PO DAILY 01/23/18 LORazepam [Lorazepam] 0.5 mg PO BID PRN 01/23/18 Potassium Citrate [Potassium Citrate ER] 5 meq PO DAILY 01/23/18 lisinopriL [Lisinopril] 20 mg PO BID 01/23/18 Apixaban [Eliquis] 5 mg PO BID 07/21/20 Insulin Glargine [Lantus Solostar] 19 unit SQ DAILY 07/21/20 Furosemide [Lasix] 20 mg PO DAILY 01/01/21 Dupilumab [Dupixent Syringe] 300 mg SQ .Q2W 09/06/21 Fluticasone [Flonase] 2 sprays [place] DAILY 09/06/21 Magnesium Citrate 100 mg PO DAILY 09/06/21 Metoprolol Succinate [Toprol Xl] 50 mg PO DAILY 09/06/21 Omeprazole Magnesium 20 mg PO DAILY 09/06/21 amLODIPine [Norvasc] 5 mg PO DAILY 09/06/21 predniSONE [Deltasone] 10 mg PO DAILY 09/06/21 Objective - Vital Signs/Intake & Output Reviewed Vital Signs: Yes Vital Signs: Vital Signs x48h Temp Pulse Pulse Resp BP Pulse Ox 09/07/21 05:20 36.3 C L 87 16 161/92 H 97 09/07/21 01:49 36.2 C L 68 68 20 152/95 H 98 Intake & Output: Intake & Output 09/04/21 09/05/21 09/06/21 09/07/21 23:59 23:59 23:59 23:59 Intake Total 657.379 7160.774 2091.000 250 Output Total 400 1400 650 750 Balance 990.610 8822.774 1441.000 -500 - Objective General Appearance: positive: No acute distress, Alert Eyes Bilateral: positive: PERRL, EOMI ENT: positive: No signs of dehydration Neck: positive: No JVD. negative: Stiff neck Respiratory: positive: No respiratory distress. negative: Wheezes, Rales, Rhonchi Cardiovascular: positive: Regular rate & rhythm. negative: Gallop/S4, Friction rub Abdomen: positive: Non-tender, No organomegaly, Nml bowel sounds, No distention Skin: positive: Warm, Dry Extremities: positive: Non-tender, Full ROM, Nml appearance Neurologic/Psychiatric: positive: Oriented x3, CN's nml (2-12), Sensation nml. negative: Motor nml (An independent gentleman who is use to walking as much as he wants to, walks upstairs, etc. Right now he says is the most he can do to transfer to a sitting position, stand and walk to the bathroom and back. He needs a walker to do so.) - Lab Results Fish Bones: 09/07/21 05:35 09/07/21 05:35 Other Labs: Lab Results x24hrs 09/07/21 09/07/21 Range/Units 05:35 05:35 WBC 7.7 (4.8-10.8) x10^3/uL RBC 4.09 L (4.70-6.10) 10^6/uL Hgb 13.4 L (14.0-18.0) g/dL Hct 37.8 L (42.0-52.0) % MCV 92.4 (80.0-94.0) fL MCH 32.8 H (27.0-31.0) pg MCHC 35.4 (32.0-36.0) g/dL RDW 12.5 (12.0-15.0) % Plt Count 209 (130-450) 10^3/uL MPV 9.5 (7.4-11.4) fL Neut # (Auto) 5.4 (1.5-6.6) 10^3/uL Lymph # (Auto) 1.5 (1.5-3.5) 10^3/uL [place] # (Auto) 0.7 (0.0-1.0) 10^3/uL Eos # (Auto) 0.1 (0.0-0.7) 10^3/uL Baso # (Auto) 0.0 (0.0-0.1) 10^3/uL Absolute Nucleated RBC 0.00 x10^3/uL Nucleated RBC % 0.0 /100WBC Sodium 141 (135-145) mmol/L Potassium 3.4 L (3.5-5.0) mmol/L Chloride 102 (101-111) mmol/L Carbon Dioxide 28 (21-32) mmol/L Anion Gap 11.0 (6-13) BUN 23 H (6-20) mg/dL Creatinine 1.0 (0.6-1.2) mg/dL Estimated GFR (MDRD) 72 L (>89) Glucose 93 (70-100) mg/dL Calcium 9.1 (8.5-10.3) mg/dL ABX Reporting Has patient been on IV antibiotics over the past 48 hours?: Yes Sepsis Event Note (H) - Evaluation Current Stage of Sepsis: Resolved Possible source of Sepsis: positive: Genitourinary - Sepsis Criteria Sepsis Criteria: Recorded Temperature greater than 38.3C or Less than 36C, Recorded Heart Rate greater than 90 bpm, WBC count greater than 12,000 or less than 4000 Assessment/Plan - Problem List (1) Sepsis Impression: Sepsis type: Escherichia coli Sepsis acute organ dysfunction status: with acute organ dysfunction Severe sepsis acute organ dysfunction type: encephalopathy Severe sepsis shock status: without septic shock Qualified Code(s): A41.51 - Sepsis due to Escherichia coli [E. coli]; R65.20 - Severe sepsis without septic shock; G93.41 - Metabolic encephalopathy Assessment/Plan: He presented with confusion, too weak to stand and a temp to 101.4 at home, was found to be 39.6 C in the ED. Tachycardic to 120, BP 190/100, WBC 17.8. UA revealed a UTI. He has been afebrile overnight. WBC trending down,17>, 16>> 11>>7.7 today. Urine culture is growing ESBL-producing E coli. He is no longer confused or feeling weak. Will change antibiotics and today is Day #2 of proper antibiotic treatment with levaquin. This gentleman is on prednisone in the outpatient setting. We changed him to IV steroids as well as oral while here. He will be on IV steroids for a total of 3 days and that will stop today. He is on his usual outpt dose. (2) E coli UTI (urinary tract infection) Impression: Urine cx grew E coli and he was on empirc Ceftriaxone. Denies dysuria or hematuria. Will change antibiotics and today is Day #2 of proper antibiotic tr eatment. Plan will be for 2 weeks minimum of antibx for a UTI in a male. If he has no bacteremia, from final blood cx results, then he will be transitioned to po antibx for the rest of his antibx course. Will change to po tomorrow. Qualifiers: Urinary tract infection type: acute pyelonephritis Qualified Code(s): N10 - Acute pyelonephritis (3) ESBL producing E coli Impression: Based on sensitivities, will change antibiotics from iv Ceftriaxone to iv levaquin, and today is Day #2 of proper antibiotic treatment. A minimum 2 week course of treatment is planned. If he has no bacteremia, from final blood cx results, then he will be transitioned to po antibx for the rest of his antibx course. (4) Atrial fibrillation Impression: This is chronic for him and he takes Eliquis at home. HR initially in the 120- 130s, now improved ater metoprolol restarted and continued on eliquis. He is consistently in the 60s to 80s. Stop telemetry. Qualifiers: Atrial fibrillation type: longstanding persistent Qualified Code(s): I48.11 - Longstanding persistent atrial fibrillation (5) Type 2 diabetes mellitus Impression: A1C 7.3. On chart review he takes Glargine at night but from Pharmacy it is daytime. Glargine and low dose sliding scale and carb controlled diet are ordered. Carb control diet ordered and continue to monitor. September 04: 249 August 30: 102, 153, 259, 277 August 31: 105, 155, 256, 256 September 1: 82 no new orders today Qualifiers: Diabetes mellitus nursing home insulin use: with nursing home use Diabetes mellitus complication status: without complication Qualified Code(s): E11.9 - Type 2 diabetes mellitus without complications; Z79.4 - local intermodal truck driver (current) use of insulin (6) Hypertension Impression: At home he is on Cardura, lisinopril twice daily, amlodipine 5 daily, metoprolol XL 50 daily. He is on all his medications on the inpatient side. In spite of that, blood pressures have been 140s-160s/50-80s. Unclear why he is on Lasix at home. Will continue to monitor and treat BP. Qualifiers: Hypertension type: primary hypertension Qualified Code(s): I10 - Essential (primary) hypertension (7) Asthma Impression: This is long standing. He takes daily prednisone and uses Albuterol prn. He is not currently in an exacerbation, denies shortness of breath and no wheezing noted on exam. We have ordered 3 days of Hydrocortisone 100mg IV daily (today is day #3), to prevent Addisonian crisis, and will resume po Prednisone after that. Continue prn Albuterol. 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 (9) BPH (benign prostatic hyperplasia) Impression: Pt reports history of BPH but has never been treated. Has had difficulty initiating a stream "forever" but denies hematuria or dysuria. Abdomen/pelvic CT noted prostate gland enlarged with smooth bladder wall thicknening which may be sequela of chronic bladder outlet obstruction. Bladder non-distended on imaging. He was agreeable to starting Flomax and probably forgot he takes Cardura at home, which was resumed. Cont follow up with his PCP/Urology after discharge. Qualifiers: Lower urinary tract symptom detail: urinary hesitancy (10) Chronic sinusitis Impression: Reports chronic sinusitis, no current symptoms. Qualifiers: Sinusitis location: pansinusitis Qualified Code(s): J32.4 - Chronic pansinusitis (11) Hypokalemia due to use of insulin most likely. Will supplement po and check in am.
[2021-09-07] MEDS: INSULIN ASPART 300 UNIT/3 ML PEN SUBQ SCH ×4 (09:36→21:20)
[2021-09-07] MEDS: APIXABAN 5 MG TABLET PO SCH ×2 (09:38→21:20)
[2021-09-07] MEDS: METOPROLOL TARTRATE 25 MG TABLET PO SCH ×2 (09:38→21:18)
[2021-09-07] MEDS: lisinopriL 20 MG TABLET PO SCH ×2 (09:38→21:18)
[2021-09-07] MEDS: DOXAZOSIN 4 MG TABLET PO SCH (09:38)
[2021-09-07] MEDS: amLODIPine 5 MG TABLET PO SCH (09:38)
[2021-09-07] MEDS: NYSTATIN POWDER 15 GM TOP SCH ×2 (09:39→21:19)
[2021-09-07] MEDS: HYDROCORTISONE SUCCINATE 100 MG/2 ML VIAL IVP SCH (09:47)
[2021-09-07] MEDS: levoFLOXacin 750 MG/150 ML 750 MG/150 ML BAG IV SCH (09:47)
[2021-09-07] MEDS: INSULIN GLARGINE 300 UNIT/3 ML PEN SUBQ SCH (21:19)
[2021-09-08] MEDS: PANTOPRAZOLE 40 MG TABLET PO SCH (05:30)
[2021-09-08 05:49] LABS: BASOPHILS % (AUTO) 0.5 %; EOSINOPHILS # (AUTO) 0.1 10^3/uL (0.0-0.7); EOSINOPHILS % (AUTO) 1.6 %; HCT - HEMATOCRIT 37.5 % (42.0-52.0); HGB - HEMOGLOBIN 13.4 g/dL (14.0-18.0); LYMPHOCYTES # (AUTO) 1.9 10^3/uL (1.5-3.5); LYMPHOCYTES % (AUTO) 23.4 %; MEAN CORPUSCULAR HEMOGLOBIN 33.1 pg (27.0-31.0); MEAN CORPUSCULAR HGB CONC 35.7 g/dL (32.0-36.0); MEAN CORPUSCULAR VOLUME 92.6 fL (80.0-94.0); MEAN PLATELET VOLUME 9.4 fL (7.4-11.4); MONOCYTES # (AUTO) 0.6 10^3/uL (0.0-1.0); MONOCYTES % (AUTO) 7.7 %; NEUTROPHILS # (AUTO) 5.3 10^3/uL (1.5-6.6); NEUTROPHILS % (AUTO) 65.9 %; PLT - PLATELET COUNT 232 10^3/uL (130-450); RED BLOOD COUNT 4.05 10^6/uL (4.70-6.10); RED CELL DISTRIBUTION WIDTH 12.6 % (12.0-15.0)
[2021-09-08 05:57] LABS: CALCIUM 8.7 mg/dL (8.5-10.3); POTASSIUM 3.4 mmol/L (3.5-5.0)
[2021-09-08] MEDS: INSULIN ASPART 300 UNIT/3 ML PEN SUBQ SCH ×4 (08:14→21:28)
[2021-09-08] MEDS: amLODIPine 5 MG TABLET PO SCH (08:15)
[2021-09-08] MEDS: levoFLOXacin 250 MG TABLET PO SCH (08:15)
[2021-09-08] MEDS: DOXAZOSIN 4 MG TABLET PO SCH (08:16)
[2021-09-08] MEDS: lisinopriL 20 MG TABLET PO SCH ×2 (08:16→21:27)
[2021-09-08] MEDS: METOPROLOL TARTRATE 25 MG TABLET PO SCH ×2 (08:16→21:26)
[2021-09-08] MEDS: predniSONE 10 MG TABLET PO SCH (08:16)
[2021-09-08] MEDS: SODIUM CHLORIDE FLUSH 0.9% 10 ML SYRINGE IVP SCH ×2 (08:16→17:00)
[2021-09-08] MEDS: NYSTATIN POWDER 15 GM TOP SCH ×2 (08:16→21:28)
[2021-09-08] MEDS: APIXABAN 5 MG TABLET PO SCH ×2 (08:16→21:27)
--- NOTE | 2021-09-08 08:18 | PROVIDER PROGRESS NOTE ---
Subjective - Prog Note Date Prog Note Date: 09/08/21 Prog Note Time: 16:27 - Subjective Subjective: As the day has gone on, he is gotten stronger and stronger. Yesterday he was afraid that his legs would even support him to get out of bed to walk to the bathroom. Today he is able to get out of bed. He walked with physical therapy. They even took on the challenge of the practice "stairs". He says it wiped him out but he was able to do it and he feels much safer about going home. He has been on oral antibiotics today. It single dose. There is been no fever, no chills. He says that by this afternoon he definitely feels much improved even from this morning. He shares with me that he has had bladder cancer in the past and that is been "carved out" several times. So his bladder is deformed. He also has a large prostate. He used to see Dr. Tin britton, urology. He also has seen a urologist from the [facility]. But he has not followed up with him in quite some time. He has urgency, frequency, hesitancy. No hematuria. He is also wanted to discuss a watchman procedure. He wants to know if it is worth doing. He definitely notices that he has had less endurance over the last couple of years. This is a from a cardiovascular perspective. And he has been told that his cardiovascular endurance will improve with this. But he is worried. Because on the same day that he was told by one humanities department chair that it is worthwhile and "a piece of cake", another humanities department chair told him "do not do it, is not worth it". Current Medications - Current Medications Current Medications: Active Medications Albuterol (Albuterol Neb 2.5 Mg/3 Ml) 2.5 mg INH RTQ4H PRN PRN Reason: Wheezing Amlodipine Besylate (Amlodipine 5 Mg Tablet) 5 mg PO DAILY [facility] Last Admin: 09/08/21 08:15 Dose: 5 mg Apixaban (Apixaban 5 Mg Tablet) 5 mg PO BID [facility] Last Admin: 09/08/21 08:16 Dose: 5 mg Doxazosin Mesylate (Doxazosin 4 Mg Tablet) 4 mg PO DAILY [facility] Last Admin: 09/08/21 08:16 Dose: 4 mg Fluticasone Propionate (Fluticasone Nasal [place]) 2 sprays DILLON DAILY PRN PRN Reason: Nasal Congestion Sodium Chloride (Normal Saline 0.45%) 1,000 mls @ 0 mls/hr IV .Q0M [facility] Insulin Aspart (Insulin Aspart 300 Unit/3 Ml Pen) 2 - 10 unit SUBQ 0800,1200,1700,2100 [facility]; Protocol Last Admin: 09/08/21 12:00 Dose: Not Given Insulin Glargine (Insulin Glargine 300 Unit/3 Ml Pen) 25 unit SUBQ QPM [facility] Last Admin: 09/07/21 21:19 Dose: 25 unit Levofloxacin (Levofloxacin 250 Mg Tablet) 750 mg PO DAILY [facility] Last Admin: 09/08/21 08:15 Dose: 750 mg Lisinopril (Lisinopril 20 Mg Tablet) 20 mg PO BID [facility] Last Admin: 09/08/21 08:16 Dose: 20 mg Lorazepam (Lorazepam 0.5 Mg Tablet) 0.5 mg PO BID PRN PRN Reason: Anxiety Metoprolol Tartrate (Metoprolol Tartrate 25 Mg Tablet) 25 mg PO BID [facility] Last Admin: 09/08/21 08:16 Dose: 25 mg Nystatin (Nystatin Powder 15 Gm) 1 applic TOP BID [facility] Last Admin: 09/08/21 08:16 Dose: 1 applic Ondansetron HCl (Ondansetron 4 Mg/2 Ml Vial) 4 mg IVP Q6HR PRN PRN Reason: Nausea / Vomiting Pantoprazole Sodium (Pantoprazole 40 Mg Tablet) 40 mg PO QDAC [facility] Last Admin: 09/08/21 05:30 Dose: 40 mg Prednisone (Prednisone 10 Mg Tablet) 10 mg PO DAILY [facility] Last Admin: 09/08/21 08:16 Dose: 10 mg Sodium Chloride (Sodium Chloride Flush 0.9% 10 Ml Syringe) 10 ml IVP PRN PRN PRN Reason: NEEDED PER PROVIDER ORDERS Sodium Chloride (Sodium Chloride Flush 0.9% 10 Ml Syringe) 10 ml IVP 0100,0900,1700 [facility] Last Admin: 09/08/21 08:16 Dose: 10 ml Doxazosin [Cardura] 4 mg PO DAILY 02/15/13 Metformin HCl 1,000 mg PO BID 02/15/13 Cholecalciferol (Vitamin D3) [Vitamin D] 2,000 unit PO DAILY 01/23/18 LORazepam [Lorazepam] 0.5 mg PO BID PRN 01/23/18 Potassium Citrate [Potassium Citrate ER] 5 meq PO DAILY 01/23/18 lisinopriL [Lisinopril] 20 mg PO BID 01/23/18 Apixaban [Eliquis] 5 mg PO BID 07/21/20 Insulin Glargine [Lantus Solostar] 19 unit SQ DAILY 07/21/20 Furosemide [Lasix] 20 mg PO DAILY 01/01/21 Dupilumab [Dupixent Syringe] 300 mg SQ .Q2W 09/06/21 Fluticasone [Flonase] 2 sprays DILLON DAILY 09/06/21 Magnesium Citrate 100 mg PO DAILY 09/06/21 Metoprolol Succinate [Toprol Xl] 50 mg PO DAILY 09/06/21 Omeprazole Magnesium 20 mg PO DAILY 09/06/21 amLODIPine [Norvasc] 5 mg PO DAILY 09/06/21 predniSONE [Deltasone] 10 mg PO DAILY 09/06/21 Objective - Vital Signs/Intake & Output Reviewed Vital Signs: Yes Vital Signs: Vital Signs x48h Temp Pulse Resp BP Pulse Ox 09/08/21 07:24 36.6 C 68 19 165/85 H 98 09/08/21 05:21 36.9 C 52 L 16 165/86 H 99 Intake & Output: Intake & Output 09/05/21 09/06/21 09/07/21 09/08/21 23:59 23:59 23:59 23:59 Intake Total 3532.774 2091.000 1490 480 Output Total 6188 392 0144 300 Balance 2132.774 1441.000 340 180 - Objective General Appearance: positive: No acute distress, Alert, Other (Elderly white male, male pattern baldness, moy and mustache, with much improved skin color and tone. Yesterday he was still quite pale, cool to touch. Today he is pink cheeks, warm skin.) Eyes Bilateral: positive: PERRL, EOMI ENT: positive: No signs of dehydration Neck: positive: No JVD. negative: Stiff neck Respiratory: positive: No respiratory distress. negative: Wheezes, Rales, Rhonchi Cardiovascular: positive: Irregularly irregular, Systolic murmur. negative: Gallop/S4, Friction rub Abdomen: positive: Non-tender, No organomegaly, Nml bowel sounds, No distention Skin: positive: Warm, Dry Extremities: positive: Full ROM, No pedal edema Neurologic/Psychiatric: positive: Oriented x3, CN's nml (2-12), Motor nml - Lab Results Fish Bones: 09/08/21 05:16 09/08/21 05:16 Other Labs: Lab Results x24hrs 09/08/21 09/08/21 Range/Units 05:16 05:16 WBC 8.0 (4.8-10.8) x10^3/uL RBC 4.05 L (4.70-6.10) 10^6/uL Hgb 13.4 L (14.0-18.0) g/dL Hct 37.5 L (42.0-52.0) % MCV 92.6 (80.0-94.0) fL MCH 33.1 H (27.0-31.0) pg MCHC 35.7 (32.0-36.0) g/dL RDW 12.6 (12.0-15.0) % Plt Count 232 (130-450) 10^3/uL MPV 9.4 (7.4-11.4) fL Neut # (Auto) 5.3 (1.5-6.6) 10^3/uL Lymph # (Auto) 1.9 (1.5-3.5) 10^3/uL Crawford # (Auto) 0.6 (0.0-1.0) 10^3/uL Eos # (Auto) 0.1 (0.0-0.7) 10^3/uL Baso # (Auto) 0.0 (0.0-0.1) 10^3/uL Absolute Nucleated RBC 0.00 x10^3/uL Nucleated RBC % 0.0 /100WBC Sodium 136 (135-145) mmol/L Potassium 3.4 L (3.5-5.0) mmol/L Chloride 103 (101-111) mmol/L Carbon Dioxide 25 (21-32) mmol/L Anion Gap 8.0 (6-13) BUN 26 H (6-20) mg/dL Creatinine 1.0 (0.6-1.2) mg/dL Estimated GFR (MDRD) 72 L (>89) Glucose 146 H (70-100) mg/dL Calcium 8.7 (8.5-10.3) mg/dL ABX Reporting Has patient been on IV antibiotics over the past 48 hours?: Yes Sepsis Event Note (H) - Evaluation Current Stage of Sepsis: Resolved Possible source of Sepsis: positive: Genitourinary - Sepsis Criteria Sepsis Criteria: Recorded Temperature greater than 38.3C or Less than 36C, Recorded Heart Rate greater than 90 bpm, WBC count greater than 12,000 or less than 4000 Assessment/Plan - Problem List (1) UTI (urinary tract infection) Impression: Urine cx grew (2) ESBL producing E coli and he was on empirc Ceftriaxone. Denies dysuria or hematuria. Antibiotics changed and today is Day #3 of new antibiotic treatment w levaquin. Plan will be for 2 weeks minimum of antibx for a UTI in a male. If he has no bacteremia, from final blood cx results, then he will be transitioned to po antibx for the rest of his antibx course. Will change to po today. Watch for rising WBC and fever. He has recovered some of his strength and feel stronger so I plan on dc in am. He feels safe enough to go home. I have asked him to reestablish himself with a urologist. He is getting need to be on antibiotics for 2 weeks maybe longer. Is a candidate for a TURP? And when was his last cystoscopy? Qualifiers: Urinary tract infection type: acute cystitis Qualified Code(s): N10 - Acute cystitis (3) Sepsis resolved Impression: Sepsis type: Escherichia coli Sepsis acute organ dysfunction status: with acute organ dysfunction Severe sepsis acute organ dysfunction type: encephalopathy Severe sepsis shock status: without septic shock Qualified Code(s): A41.51 - Sepsis due to Escherichia coli [E. coli]; R65.20 - Severe sepsis without septic shock; G93.41 - Metabolic encephalopathy Assessment/Plan: He presented with confusion, too weak to stand and a temp to 101.4 at home, was found to be 39.6 C in the ED. Tachycardic to 120, BP 190/100, WBC 17.8. UA revealed a UTI. He has been afebrile since admission. WBC trending down,17>, 16>> 11>>7.7>>8.0 today. Urine culture is growing ESBL-producing E coli. He is no longer confused or feeling weak. But his legs aren't strong. Antibiotics changed to cover sensitivities and today is Day #3 of new antibiotic treatment with levaquin. This gentleman is on prednisone in the outpatient setting. We changed him to IV steroids as well as oral while here. He will be on IV steroids for a total of 3 days and that will stop today. He is on his usual outpt dose. (4) Atrial fibrillation Impression: This is chronic for him and he takes Eliquis at home. HR initially in the 120- 130s, now improved ater metoprolol restarted and continued on eliquis. He is consistently in the 60s to 80s. Stop telemetry. I will do a short literature search of the watchman device. I have explained to him that I am not a humanities department chair. I can only read the literature and presented to him. He will still have to make up his own mind about what to do. Qualifiers: Atrial fibrillation type: longstanding persistent Qualified Code(s): I48.11 - Longstanding persistent atrial fibrillation (5) Type 2 diabetes mellitus Impression: A1C 7.3. On chart review he takes Glargine at night but from Pharmacy it is daytime. Glargine and low dose sliding scale and carb controlled diet are ordered. Carb control diet ordered and continue to monitor. August 29: 249 August 30: 102, 153, 259, 277 August 31: 105, 155, 256, 256 September 1: 82, 142, 227, 288 February 2: 76, 116 no new orders today. He will resume home meds at id. Qualifiers: Diabetes mellitus terminologist insulin use: with fdc use Diabetes mellitus complication status: without complication Qualified Code(s): E11.9 - Type 2 diabetes mellitus without complications; Z79.4 - [facility] (current) use of insulin (6) Hypertension Impression: At home he is on Cardura, lisinopril twice daily, amlodipine 5 daily, metoprolol XL 50 daily. He is on all his medications on the inpatient side. In spite of that, blood pressures have been 140s-160s/50-80s. Unclear why he is on Lasix at home. Consistently not at goal of <130/70. Will continue to monitor and treat BP. I have asked him to fu w Oil Recovery Operator in the outpt setting to maximize control and reduce risk of another stroke. Qualifiers: Hypertension type: primary hypertension Qualified Code(s): I10 - Essential (primary) hypertension (7) Asthma Impression: This is long standing. He takes daily prednisone and uses Albuterol prn. He is not currently in an exacerbation, denies shortness of breath and no wheezing noted on exam. We have ordered 3 days of Hydrocortisone 100mg IV daily (yesterday was day #3), to prevent Addisonian crisis, and will resume po Prednisone after that. Continue prn Albuterol. 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 (9) BPH (benign prostatic hyperplasia) Impression: Pt reports history of BPH but has never been treated. Has had difficulty initiating a stream "forever" but denies hematuria or dysuria. Abdomen/pelvic CT noted prostate gland enlarged with smooth bladder wall thicknening which may be sequela of chronic bladder outlet obstruction. Bladder non-distended on imaging. He was agreeable to starting Flomax and probably forgot he takes Card ura at home, which was resumed. Cont follow up with his PCP/Urology after discharge. Especially now that he shared with me that he has had previous bladder surgery, has history of bladder cancer, and he really has not had follow-up for a while. Qualifiers: Lower urinary tract symptom detail: urinary hesitancy (10) Chronic sinusitis Impression: Reports chronic sinusitis, no current symptoms. Qualifiers: Sinusitis location: pansinusitis Qualified Code(s): J32.4 - Chronic pansinusitis (11) Hypokalemia due to use of insulin most likely. Will supplement po and check in am. Qualifiers: Qualified Code(s): N10 - Acute pyelonephritis
[2021-09-08] MEDS: POTASSIUM CHLORIDE 20 MEQ TABLET PO SCH (17:01)
[2021-09-08] MEDS: INSULIN GLARGINE 300 UNIT/3 ML PEN SUBQ SCH (21:27)
[2021-09-09] MEDS: SODIUM CHLORIDE FLUSH 0.9% 10 ML SYRINGE IVP SCH ×2 (01:25→08:12)
[2021-09-09 05:58] LABS: BASOPHILS % (AUTO) 0.5 %; EOSINOPHILS # (AUTO) 0.2 10^3/uL (0.0-0.7); EOSINOPHILS % (AUTO) 2.7 %; HCT - HEMATOCRIT 39.3 % (42.0-52.0); HGB - HEMOGLOBIN 14.1 g/dL (14.0-18.0); LYMPHOCYTES # (AUTO) 2.2 10^3/uL (1.5-3.5); LYMPHOCYTES % (AUTO) 27.3 %; MEAN CORPUSCULAR HEMOGLOBIN 33.3 pg (27.0-31.0); MEAN CORPUSCULAR HGB CONC 35.9 g/dL (32.0-36.0); MEAN CORPUSCULAR VOLUME 92.7 fL (80.0-94.0); MEAN PLATELET VOLUME 9.4 fL (7.4-11.4); MONOCYTES # (AUTO) 0.7 10^3/uL (0.0-1.0); MONOCYTES % (AUTO) 8.3 %; NEUTROPHILS # (AUTO) 4.9 10^3/uL (1.5-6.6); NEUTROPHILS % (AUTO) 60.1 %; PLT - PLATELET COUNT 275 10^3/uL (130-450); RED BLOOD COUNT 4.24 10^6/uL (4.70-6.10); RED CELL DISTRIBUTION WIDTH 12.7 % (12.0-15.0); WHITE BLOOD COUNT 8.1 x10^3/uL (4.8-10.8)
[2021-09-09 06:05] LABS: CALCIUM 8.7 mg/dL (8.5-10.3); CREATININE 0.9 mg/dL (0.6-1.2); POTASSIUM 3.2 mmol/L (3.5-5.0)
[2021-09-09] MEDS: PANTOPRAZOLE 40 MG TABLET PO SCH (06:23)
[2021-09-09] MEDS: lisinopriL 20 MG TABLET PO SCH (08:11)
[2021-09-09] MEDS: METOPROLOL TARTRATE 25 MG TABLET PO SCH (08:11)
[2021-09-09] MEDS: APIXABAN 5 MG TABLET PO SCH (08:11)
[2021-09-09] MEDS: INSULIN ASPART 300 UNIT/3 ML PEN SUBQ SCH (08:11)
[2021-09-09] MEDS: amLODIPine 5 MG TABLET PO SCH (08:11)
[2021-09-09] MEDS: POTASSIUM CHLORIDE 20 MEQ TABLET PO SCH (08:12)
[2021-09-09] MEDS: NYSTATIN POWDER 15 GM TOP SCH (08:12)
[2021-09-09] MEDS: levoFLOXacin 250 MG TABLET PO SCH (08:12)
[2021-09-09] MEDS: DOXAZOSIN 4 MG TABLET PO SCH (08:12)
[2021-09-09] MEDS: predniSONE 10 MG TABLET PO SCH (08:12)
--- NOTE | 2021-09-09 08:43 | Discharge Plan ---
Discharge Plan Problem Reviewed?: Yes Disposition: Home, Self Care Condition: Stable Prescriptions: Potassium Chloride [K-Dur] 20 meq PO DAILY #28 tablet levoFLOXacin [Levaquin] 750 mg PO QD #30 tablet Diet: Diabetic Activity Restrictions: Activity as Tolerated Health Concerns: You have a history of bladder cancer, and also have a moderately enlarged prostate. The large prostate is a fairly common occurrence in gentleman your age. It is resulted in a distorted anatomy of the lining of your bladder. And urinary retention. With that as a background, you began having confusion. Your was started to get really worried. You were dizzy, tired, slept most of the day before you came to the hospital. That night you were so tired and weak that you could not make it off the toilet from the bathroom. On the morning of admission, you slid out of the wheelchair because you were so weak. Ambulance was called. We found you to have a severe infection called "sepsis" from a urinary tract infection. The bacteria growing in your urine is ESBL producing E. coli. It is a fancy way of saying that you have the bacteria E. coli growing in your bladder and that this bacteria is very resistant to antibiotics. Plan of Treatment: 1. We started you on antibiotics that would cover this bacteria. You were able to be successfully changed over to a pill form. You will need to take Levaquin until the prescription has ended. 2. Please reestablish yourself with a urologist. You have a history of bladder cancer, and a large prostate. You may need to be evaluated for a TURP which is partial removal of the prostate. Or have another cystoscopy to review your bladder for recurrence of bladder cancer. 3. You have chronic atrial fibrillation and they are considering doing a Watchman device. We discussed the pros and cons of that at your request. 4. While you were here we noticed that your blood pressure was consistently elevated and your glucose is consistently elevated. At home you take Lantus 19 units. While here you require 25 units. I strongly encourage you to see your primary care provider and follow-up. Or your geomagnetician. Make sure that your blood pressure it is a goal of less than 130 on top, and 70 on the bottom. And that you glucose is consistently controlled. Care Goals: To reduce his overall risk of recurrent heart attack and stroke by controlling his blood pressure, glucose, and cholesterol. To prevent or reduce the risk of another urinary tract infection To make a decision regarding the watchman procedure Assessment: Patient has lots of plans for the future. Is remodeling his house to suit disability. He says he is going to follow through with seeing his doctors. No Smoking: If you smoke, Please STOP! Call for help. Follow-up with: Abram Guardado MD [Primary Care Provider] -
--- NOTE | 2021-09-09 08:53 | DISCHARGE SUMMARY ---
Discharge Summary Admit Date: 09/04/21 Discharge Date: 09/09/21 Discharging Provider: Анна Calix MD Primary Care Provider: Abram Guardado MD Code Status: Attempt Resuscitation Condition at Discharge: Stable Discharge Disposition: 01 Home, Self Care - DIAGNOSES Discharge Diagnoses with Status of Each Condition: 1. Sepsis 2. ESBL producing E. coli UTI 3. History of bladder cancer 4. Longstanding persistent atrial fibrillation 5. Type 2 diabetes mellitus, uncontrolled, with hyperglycemia, with long-term use of insulin 6. Hypertension, not at goal 7. Asthma, without exacerbation 8. History of Cronin's palsy 9. Benign prostatic hypertrophy with lower urinary tract symptoms of obstruction 10. Chronic sinusitis - HPI History of Present Illness: Mikel Vazquez is a 75 year old male with a past medical history that includes asthma (on daily prednisone), afib (on Eliquis), HTN, T2DM, BPH, chronic sinusitis, and Cronin's Palsy. He was brought to the ER after his called EMS due to weakness and confusion by the patient. At baseline he is alert and oriented, able to ambulate with a cane and perform ADLs independently. Per her report, after a telehealth visit yesterday the patient became dizzy and tired and slept most of the day. This is not usual for him. Around midnight he got up to use the bathroom but felt weak and had difficulty walking so his helped him into a wheelchair at the home and he was able to get onto the toilet. He was not able to get up from the toilet so they called her daughter and her daughter's friend to come help him back to bed. At that time the patien t "didn't seem right, sort of confused" but it was attributed to being tired and he went back to sleep. At 0500 he got back into the wheelchair and went to the bathroom but was weak and slid out of the chair when attempting to get up to the toilet. His and the patient both deny that he hit his head. He reports his legs gave out but nothing was injured. The daughter and her friend again ca me to help him back into bed. At that time he was more alert but tired, denied pain but was noticeably breathing "heavier than normal". He slept most of the morning and when he woke around 1100 his checked his temperature with a temporal thermometer and found him to be 101.4. He did not look good at that time. She checked a blood glucose and it was 188. She decided to call EMS to bring him to the hospital for evaluation. In the ER he was found to have a temp of 39.6, WBC 17, and he was only oriented to himself. His HR was in the 120s and BP 190/100. A UA and cx were obtained and the UA revealed a UTI. He was started on antibiotics and decision was made to admit him to inpatient status for urosepsis and weakness. He reports weakness, fatigue and difficulty initiating a stream in addition to the fever they measured at home. Denies chest pain, dyspnea, dysuria, nausea, or vomiting. After discussion with the Pt and his (at the time he was alert and oriented to self, place, reason for admission and month), he has elected to be a full code with both chest compressions/CPR and intubation if needed. - Past Medical History Cardiovascular: reports: Hypertension, Coronary artery disease, Atrial fibrillation, Arrhythmia, Other Respiratory: reports: Asthma, Shortness of breath, Sleep apnea, Other Neuro: reports: Other (Reports a history of [place] Palsy and "cranial nerve 3 damage") Endocrine/Autoimmune: reports: Type 2 diabetes : reports: Benign prostate hypertrophy, Other HEENT: reports: Chronic vision loss, Chronic hearing loss, Other Psych: reports: Anxiety, Panic attacks, Post traumatic stress disorder Musculoskeletal: reports: Osteoarthritis Derm: reports: Other MRSA Hx?: No - Past Surgical History General: reports: Cholecystectomy Ortho: reports: Arthroscopic surgery Cardiovascular: reports: CABG, Coronary stent HEENT: reports: Other - CONSULTS | PROCEDURES Procedures: 1. Chest x-ray with cardiomegaly and mild vascular congestion 2. CT abdomen and pelvis: Prostatic hypertrophy with smooth bladder wall thickening that could be the sequela of chronic bladder outlet obstruction. No abscess or fistula. Large left renal cyst that is stable. No hydronephrosis or stones. 3. Urine culture with ESBL producing E. coli. 4. Blood cultures negative after 5 days. - HOSPITAL COURSE Hospital Course: After a couple of days of recovery, and doing well, the patient's main complaint was that of severe leg weakness. He was just "rubbery". [place] unsteady on his feet. But by the time of discharge he had regained enough of his strength that he felt like he was safe to go home. He also shared with me that he has a history of bladder cancer.He said that he had his bladder scraped a few times. But follow through has lapsed and he has not seen someone in over 2 years he thinks. He has urgency, retention, frequency and has symptoms of prostatism. On CT his prostate is quite large. I have strongly recommended he follow-up with urology. I told him he needs to follow-up to make sure bladder cancer has not recurred, and to see if he is a candidate for a TURP or [facility] or other [facility] management. It would help reduce his risk of recurrent UTI. During his stay, blood pressure was consistently elevated between 148 systolic and as high as 188 systolic. This is on his usual home medications of Cardura, lisinopril, Norvasc, metoprolol. I reminded him that to reduce his risk of heart attack and stroke recurrence, he needs to make sure that his blood pressure it is a certain goal and that his glucose is at a certain goal. Glycosylated hemoglobin was 7.3 and a 75-year-old male. During his stay he required 25 units of Lantus versus the 19 units of Lantus he takes at home.He is also requiring potassium supplementation. I have sent him home with a few days of potassium in the form of K-Dur. His PCP will need to follow-up on those levels. At discharge temperature was 36.3. Blood pressure 188/91. Respirations 18. 98% on room air. He is a 5 foot 10 inch tall male. 101 kg. Slightly deaf I thinking that he speaks in a loud voice. Alert, oriented to person place and time with lucid speech pattern, good historian. Neck is supple without bruits. Lungs are clear to auscultation and percussion. No labored respiration. PMI is normally placed with a regular rate and rhythm and a soft systolic ejection murmur. The abdomen is obese, soft, nontender with no organomegaly. Extremities are without edema. However he has no hair on his legs, and I cannot feel pulses on his feet. Feet are warm to touch with no cyanosis. Greater than 30 minutes was spent coordinating discharge. - ALLERGIES Allergies/Adverse Reactions: Allergies Allergy/AdvReac Type Severity Reaction Status Date / Time licorice Allergy Severe Anaphylaxis Verified 09/06/21 07:43 plague vaccine Allergy extreme Verified 09/04/21 14:18 high fever zolpidem Allergy Anaphylaxis Verified 09/04/21 14:18 - MEDICATIONS Home Medications: Ambulatory Orders Medication Instructions Recorded Confirmed Doxazosin [Cardura] 4 mg PO DAILY 02/15/13 09/06/21 Metformin HCl 1,000 mg PO BID 02/15/13 09/06/21 Albuterol [Ventolin Hfa] 2 puffs INH Q4H PRN #1 inhaler 01/10/14 09/06/21 Cholecalciferol (Vitamin D3) 2,000 unit PO DAILY 01/23/18 09/06/21 [Vitamin D3] LORazepam [Lorazepam] 0.5 mg PO BID PRN 01/23/18 09/06/21 Potassium Citrate [Potassium 5 meq PO DAILY 01/23/18 09/06/21 Citrate ER] lisinopriL [Lisinopril] 20 mg PO BID 01/23/18 09/06/21 Apixaban [Eliquis] 5 mg PO BID 07/21/20 09/06/21 Insulin Glargine [Lantus Solostar] 19 unit SQ DAILY 07/21/20 09/06/21 Furosemide [Lasix] 20 mg PO DAILY 01/01/21 09/06/21 Dupilumab [Dupixent Syringe] 300 mg SQ .Q2W 09/06/21 09/06/21 Fluticasone [Flonase] 2 sprays DILLON DAILY 09/06/21 09/06/21 Magnesium Citrate 100 mg PO DAILY 09/06/21 09/06/21 Metoprolol Succinate [Toprol Xl] 50 mg PO DAILY 09/06/21 09/06/21 Omeprazole Magnesium 20 mg PO DAILY 09/06/21 09/06/21 amLODIPine [Norvasc] 5 mg PO DAILY 09/06/21 09/06/21 predniSONE [Deltasone] 10 mg PO DAILY 09/06/21 09/06/21 levoFLOXacin [Levaquin] 750 mg PO QD #30 tablet 09/08/21 Potassium Chloride [K-Dur] 20 meq PO DAILY #28 tablet 09/09/21 - LABS Result Diagrams: 09/09/21 05:25 09/09/21 05:25 - SEPSIS Current Stage of Sepsis: Resolved Possible source of Sepsis: Genitourinary Sepsis Criteria: Recorded Temperature greater than 38.3C or Less than 36C, Recorded Heart Rate greater than 90 bpm, WBC count greater than 12,000 or less than 4000
[2021-09-09 11:10] VITALS: BP 147/95
== END 2021-09-09 11:30 | disposition home or self-care (01) | DRG 872 ==
LOC: EDUNIT# → ED 14:11 → MS2 15:54
PROVIDERS: ADMIT Registered Nurse; ATTEND Specialist
DX: A41.51 Sepsis due to Escherichia coli [E. coli] (principal); N10 Acute pyelonephritis; I48.20 Chronic atrial fibrillation, unspecified; G93.40 Encephalopathy, unspecified; R65.20 Severe sepsis without septic shock; E11.9 Type 2 diabetes mellitus without complications; Z79.4 Long term (current) use of insulin; J45.909 Unspecified asthma, uncomplicated; G51.0 Bell's palsy; Z86.69 Personal history of other diseases of the nervous system and sense organs; N40.1 Benign prostatic hyperplasia with lower urinary tract symptoms; R39.11 Hesitancy of micturition; R33.8 Other retention of urine; R39.15 Urgency of urination; R35.0 Frequency of micturition; Z85.51 Personal history of malignant neoplasm of bladder; I10 Essential (primary) hypertension; Z79.01 Long term (current) use of anticoagulants; R41.0 Disorientation, unspecified; I25.10 Atherosclerotic heart disease of native coronary artery without angina pectoris; G47.30 Sleep apnea, unspecified; Z95.1 Presence of aortocoronary bypass graft; Z95.5 Presence of coronary angioplasty implant and graft; Z79.899 Other long term (current) drug therapy; J32.4 Chronic pansinusitis; Z20.822 Contact with and (suspected) exposure to COVID-19; E87.6 Hypokalemia
CPT/HCPCS: 0202U; 36415; 71045; 74176; 80048; 80053; 81001; 83036; 83605; 85025; 87040; 87086; 87181; 93005; 96365; 97116; 97162; 99285; A9270; J1815

== ENCOUNTER 2021-09-22 12:57 | Outpatient (CLI) | payer OTHER | END 2021-09-22 12:58 | disposition EMS.NT | LOC: EMS 12:57 | DX: R53.1 Weakness (principal) ==

== ENCOUNTER 2021-09-22 15:43 | Emergency (ER) | payer OTHER ==
[2021-09-22 16:34] LABS: BASOPHILS % (AUTO) 0.3 %; EOSINOPHILS # (AUTO) 0.2 10^3/uL (0.0-0.7); HCT - HEMATOCRIT 41.5 % (42.0-52.0); HGB - HEMOGLOBIN 14.4 g/dL (14.0-18.0); LYMPHOCYTES # (AUTO) 1.3 10^3/uL (1.5-3.5); LYMPHOCYTES % (AUTO) 22.7 %; MEAN CORPUSCULAR HEMOGLOBIN 32.8 pg (27.0-31.0); MEAN CORPUSCULAR HGB CONC 34.7 g/dL (32.0-36.0); MEAN CORPUSCULAR VOLUME 94.5 fL (80.0-94.0); MEAN PLATELET VOLUME 8.9 fL (7.4-11.4); MONOCYTES # (AUTO) 0.4 10^3/uL (0.0-1.0); MONOCYTES % (AUTO) 7.5 %; NEUTROPHILS # (AUTO) 3.8 10^3/uL (1.5-6.6); NEUTROPHILS % (AUTO) 66.3 %; PLT - PLATELET COUNT 220 10^3/uL (130-450); RED BLOOD COUNT 4.39 10^6/uL (4.70-6.10); RED CELL DISTRIBUTION WIDTH 12.6 % (12.0-15.0); WHITE BLOOD COUNT 5.7 x10^3/uL (4.8-10.8)
[2021-09-22 17:05] LABS: ALBUMIN 3.7 g/dL (3.2-5.5); ALBUMIN/GLOBULIN RATIO 1.2 (1.0-2.2); BILIRUBIN,TOTAL 1.3 mg/dL (0.2-1.0); CALCIUM 8.8 mg/dL (8.5-10.3); POTASSIUM 3.6 mmol/L (3.5-5.0); TOTAL PROTEIN 6.7 g/dL (6.7-8.2)
--- NOTE | 2021-09-22 17:06 | ED Physician Documentation ---
History of Present Illness - Stated complaint Stated Complaint: WEAKNESS - Chief complaint Chief Complaint: Neuro - History obtained from History obtained from: Patient - History of Present Illness Timing: Today Pain level max: 0 Pain level now: 0 - Additonal information Additional information: 75-year-old male states that he came to the emergency department today on the advice of his primary care provider. He states that he has had several falls recently at home. No injuries, but has been feeling increasing weakness over the past 3 to 4 days. He was recently admitted for urosepsis. Discharged about 2 weeks ago. No fevers. No chills. No vomiting or diarrhea. No abdominal pain. No back pain. No headache. No numbness or tingling. Nothing makes it better or worse Review of Systems Constitutional: denies: Fever, Chills Nose: denies: Rhinorrhea / runny nose, Congestion GI: denies: Nausea, Vomiting, Diarrhea Skin: denies: Rash Musculoskeletal: denies: Neck pain, Back pain PD PAST MEDICAL HISTORY - Past Medical History Cardiovascular: Hypertension, Coronary artery disease, Atrial fibrillation, Arrhythmia, Other Respiratory: Asthma, Shortness of breath, Sleep apnea, Other Neuro: Other Endocrine/Autoimmune: Type 2 diabetes GI: Other : Benign prostate hypertrophy, Other HEENT: Chronic vision loss, Chronic hearing loss, Other Psych: Anxiety, Panic attacks, Post traumatic stress disorder Musculoskeletal: Osteoarthritis Derm: Other - Past Surgical History Past Surgical History: Yes General: Cholecystectomy Ortho: Arthroscopic surgery Cardiovascular: CABG, Coronary stent HEENT: Other - Present Medications Home Medications: Ambulatory Orders Medication Instructions Recorded Confirmed Doxazosin [Cardura] 4 mg PO DAILY 02/15/13 09/06/21 Metformin HCl 1,000 mg PO BID 02/15/13 09/06/21 Albuterol [Ventolin Hfa] 2 puffs INH Q4H PRN #1 inhaler 01/10/14 09/06/21 Cholecalciferol (Vitamin D3) 2,000 unit PO DAILY 01/23/18 09/06/21 [Vitamin D3] LORazepam [Lorazepam] 0.5 mg PO BID PRN 01/23/18 09/06/21 Potassium Citrate [Potassium 5 meq PO DAILY 01/23/18 09/06/21 Citrate ER] lisinopriL [Lisinopril] 20 mg PO BID 01/23/18 09/06/21 Apixaban [Eliquis] 5 mg PO BID 07/21/20 09/06/21 Insulin Glargine [Lantus Solostar] 19 unit SQ DAILY 07/21/20 09/06/21 Furosemide [Lasix] 20 mg PO DAILY 01/01/21 09/06/21 Dupilumab [Dupixent Syringe] 300 mg SQ .Q2W 09/06/21 09/06/21 Fluticasone [Flonase] 2 sprays DILLON DAILY 09/06/21 09/06/21 Magnesium Citrate 100 mg PO DAILY 09/06/21 09/06/21 Metoprolol Succinate [Toprol Xl] 50 mg PO DAILY 09/06/21 09/06/21 Omeprazole Magnesium 20 mg PO DAILY 09/06/21 09/06/21 amLODIPine [Norvasc] 5 mg PO DAILY 09/06/21 09/06/21 predniSONE [Deltasone] 10 mg PO DAILY 09/06/21 09/06/21 levoFLOXacin [Levaquin] 750 mg PO QD #30 tablet 09/08/21 Potassium Chloride [K-Dur] 20 meq PO DAILY #28 tablet 09/09/21 - Allergies Allergies/Adverse Reactions: Allergies Allergy/AdvReac Type Severity Reaction Status Date / Time licorice Allergy Severe Anaphylaxis Verified 09/22/21 15:56 plague vaccine Allergy extreme Verified 09/22/21 15:56 high fever zolpidem Allergy Anaphylaxis Verified 09/22/21 15:56 - Social History Does the pt smoke?: No Smoking Status: Former smoker Does the pt drink ETOH?: Yes Does the pt have substance abuse?: No - Immunizations Immunizations are current?: No Immunizations: TDAP >10years/unknown - POLST Patient has POLST: No PD ED PE NORMAL - Vitals Vital signs reviewed: Yes - General General: Alert and oriented X 3, No acute distress - HEENT HEENT: PERRL, Moist mucous membranes - Neck Neck: Supple, no meningeal sign - Cardiac Cardiac: RRR, Strong equal pulses - Respiratory Respiratory: No respiratory distress, Clear bilaterally - Abdomen Abdomen: Soft, Non tender, Non distended - Back Back: No CVA TTP, No spinal TTP - Derm Derm: Warm and dry - Extremities Extremities: No edema, No calf tenderness / cord - Neuro Neuro: Alert and oriented X 3 - Psych Psych: Normal mood, Normal affect Results - Vitals Vitals: Vital Signs - 24 hr 09/22/21 09/22/21 09/22/21 15:47 20:17 20:45 Temperature 36.3 C L Heart Rate 84 90 96 Respiratory 16 19 21 Rate Blood Pressure 160/115 H 174/96 H 178/88 H O2 Saturation 98 98 97 Oxygen O2 Source Room air - Labs Labs: Laboratory Tests 09/22/21 09/22/21 09/22/21 16:28 16:28 16:28 WBC 5.7 RBC 4.39 L Hgb 14.4 Hct 41.5 L MCV 94.5 H MCH 32.8 H MCHC 34.7 RDW 12.6 Plt Count 220 MPV 8.9 Neut # (Auto) 3.8 Lymph # (Auto) 1.3 L [place]yer # (Auto) 0.4 Eos # (Auto) 0.2 Baso # (Auto) 0.0 Absolute Nucleated RBC 0.00 Nucleated RBC % 0.0 Sodium 135 Potassium 3.6 Chloride 95 L Carbon Dioxide 29 Anion Gap 11.0 BUN 18 Creatinine 1.0 Estimated GFR (MDRD) 72 L Glucose 142 H Calcium 8.8 Total Bilirubin 1.3 H AST 20 ALT 15 Alkaline Phosphatase 57 Total Creatine Kinase 45 Total Protein 6.7 Albumin 3.7 Globulin 3.0 Albumin/Globulin Ratio 1.2 Lipase 42 Urine Color Urine Clarity Urine pH Ur Specific [place] Urine Protein Urine Glucose (UA) Urine Ketones Urine Occult Blood Urine Nitrite Urine Bilirubin Urine Urobilinogen Ur Leukocyte Esterase Ur Microscopic Review Urine Culture Comments Nasal Adenovirus (PCR) Nasal B. parapertussis DNA (PCR) Nasal Coronavir 229E PCR Nasal Coronavir HKU1 PCR Nasal Coronavir NL63 PCR Nasal Coronavir OC43 PCR Nasal Enterovir/Rhinovir PCR Nasal Influenza B PCR Nasal Influenza A PCR Nasal Parainfluen 1 PCR Nasal Parainfluen 2 PCR Nasal Parainfluen 3 PCR Nasal Parainfluen 4 PCR Nasal RSV (PCR) Nasal B.pertussis DNA PCR Nasal C.pneumoniae (PCR) [place] Human Metapneumo PCR Nasal M.pneumoniae (PCR) Nasal SARS-CoV-2 (PCR) 09/22/21 09/22/21 16:48 18:14 WBC RBC Hgb Hct MCV MCH MCHC RDW Plt Count MPV Neut # (Auto) Lymph # (Auto) [place] # (Auto) Eos # (Auto) Baso # (Auto) Absolute Nucleated RBC Nucleated RBC % Sodium Potassium Chloride Carbon Dioxide Anion Gap BUN Creatinine Estimated GFR (MDRD) Glucose Calcium Total Bilirubin AST ALT Alkaline Phosphatase Total Creatine Kinase Total Protein Albumin Globulin Albumin/Globulin Ratio Lipase Urine Color YELLOW Urine Clarity CLEAR Urine pH 7.0 Ur Specific [place] 1.015 Urine Protein TRACE Urine Glucose (UA) NEGATIVE Urine Ketones NEGATIVE Urine Occult Blood NEGATIVE Urine Nitrite NEGATIVE Urine Bilirubin NEGATIVE Urine Urobilinogen 0.2 (NORMAL) Ur Leukocyte Esterase NEGATIVE Ur Microscopic Review NOT INDICATED Urine Culture Comments NOT INDICATED Nasal Adenovirus (PCR) NOT DETECTED Nasal B. parapertussis DNA (PCR) NOT DETECTED Nasal Coronavir 229E PCR NOT DETECTED Nasal Coronavir HKU1 PCR NOT DETECTED Nasal Coronavir NL63 PCR NOT DETECTED Nasal Coronavir OC43 PCR NOT DETECTED Nasal Enterovir/Rhinovir PCR NOT DETECTED Nasal Influenza B PCR NOT DETECTED Nasal Influenza A PCR NOT DETECTED Nasal Parainfluen 1 PCR NOT DETECTED Nasal Parainfluen 2 PCR NOT DETECTED Nasal Parainfluen 3 PCR NOT DETECTED Nasal Parainfluen 4 PCR NOT DETECTED Nasal RSV (PCR) NOT DETECTED Nasal B.pertussis DNA PCR NOT DETECTED Nasal C.pneumoniae (PCR) NOT DETECTED [place] Human Metapneumo PCR NOT DETECTED Nasal M.pneumoniae (PCR) NOT DETECTED Nasal SARS-CoV-2 (PCR) DETECTED A PD MEDICAL DECISION MAKING - ED course Complexity details: reviewed old records, reviewed results, re-evaluated patient, considered differential, d/w patient ED course: No significant lab findings. No significant abnormalities here in the emergency department. He does complain of generalized weakness. No focal neurological deficits. Patient would like to stay in the emergency department overnight and Talk to the social work administrator in the morning about home health. He does not want to go to a [facility] facility or rehab unit. He would also like to explore home physical therapy. I informed him that physical therapy would likely have to be referred by his primary care provider. Patient will be signed out to the [facility] emergency department physician for social work consultation in the morning. This document was made in part using voice recognition software. While efforts are made to proofread this document, sound alike and grammatical errors may occur. Departure - Departure Clinical Impression: Weakness Condition: Good
[2021-09-22 17:51] LABS: B. PARAPERTUSSIS- RESP PCR PAN NOT DETECTED; B. PERTUSSIS- RESP PCR PANEL NOT DETECTED; C. PNEUMONIAE- RESP PCR PANEL NOT DETECTED; CORONAVIRUS 229E-RESP PCR NOT DETECTED; CORONAVIRUS HKU1-RESP PCR NOT DETECTED; CORONAVIRUS NL63-RESP PCR NOT DETECTED; CORONAVIRUS OC43-RESP PCR NOT DETECTED; HUMAN METAPNEUMOVIRUS NOT DETECTED; INFLUENZA A- RESP PCR PANEL NOT DETECTED; INFLUENZA B - RESP PCR PANEL NOT DETECTED; M. PNEUMONIAE- RESP PCR PANEL NOT DETECTED; PARAINFLUENZA VIRUS 1 NOT DETECTED; PARAINFLUENZA VIRUS 2 NOT DETECTED; PARAINFLUENZA VIRUS 3 NOT DETECTED; PARAINFLUENZA VIRUS 4 NOT DETECTED; RHINOVIRUS/ENTEROVIRUS NOT DETECTED; RSV- RESP PCR PANEL NOT DETECTED
[2021-09-22 17:54] LABS: SARS-CoV-2 -RESP PCR PANEL DETECTED
[2021-09-22 18:27] LABS: BILIRUBIN,URINE NEGATIVE (NEGATIVE); GLUCOSE, URINE (UA) NEGATIVE (NEGATIVE); KETONES,URINE (UA) NEGATIVE (NEGATIVE); LEUKOCYTE ESTERASE, URINE NEGATIVE (NEGATIVE); NITRITE,URINE NEGATIVE (NEGATIVE); OCCULT BLOOD,URINE NEGATIVE (NEGATIVE); PROTEIN,URINE TRACE mg/dL (NEGATIVE); UROBILINOGEN,URINE 0.2 (NORMAL) E.U./dL (NORMAL)
[2021-09-22 18:34] LABS: CLARITY,URINE CLEAR (CLEAR)
[2021-09-23] MEDS: lisinopriL 5 MG TABLET PO SCH ×2 (03:48→08:54)
[2021-09-23] MEDS: amLODIPine 5 MG TABLET PO SCH ×2 (03:48→08:53)
[2021-09-23] MEDS: METOPROLOL TARTRATE 50 MG TABLET PO SCH ×2 (03:48→08:43)
[2021-09-23] MEDS: FUROSEMIDE 20 MG TABLET PO SCH ×2 (03:48→08:53)
--- NOTE | 2021-09-23 12:14 | ED Physician Documentation ---
ED Addendum - Addendum Addendum: 09/23/21 12:12 Seen by social work who talked with he and his . There are wanting to treat at home. They were in need of some augmented services and so we will initiate home health. Social work was going to talk with home health. We did get a PT evaluation to assess his level of needs in that regard. His vital signs remain good and his oxygenation is adequate. He does not seem to be having significant respiratory Covid symptoms. He is to continue his usual medications and stay well-hydrated. We will order and initiate home health as well. Disposition: The patient discharged home in stable condition. Diagnoses: 1. General weakness 2. Acute Covid infection 3. Long-term anticoagulant use 4. hypertension 09/23/21 12:15
[2021-09-23 13:52] VITALS: BP 146/79
== END 2021-09-23 13:52 | disposition home or self-care (01) ==
LOC: ED 15:43
DX: U07.1 COVID-19 (principal); R53.1 Weakness; I10 Essential (primary) hypertension; I48.91 Unspecified atrial fibrillation; E11.9 Type 2 diabetes mellitus without complications; Z79.4 Long term (current) use of insulin; Z79.01 Long term (current) use of anticoagulants; Z95.1 Presence of aortocoronary bypass graft; Z87.891 Personal history of nicotine dependence; Z91.81 History of falling
CPT/HCPCS: 0202U; 36415; 80053; 81003; 82550; 83690; 85025; 99282; 99283; A9270; 81001; 87086

== ENCOUNTER 2021-10-03 09:14 | Outpatient (CLI) | payer MEDICARE ==
--- NOTE | 2021-10-03 11:01 | Ultrasound Report ---
PROCEDURE: Duplex Lwr Ext Arterial Bilat INDICATIONS: ABN FOOT PULSE TECHNIQUE: Color and pulse Doppler interrogation was performed of both lower extremity arterial systems, with im age documentation. COMPARISON: None FINDINGS: Right lower extremity: Common femoral artery: 135.5 cm/sec, with triphasic waveform. Deep femoral artery: 61.5 cm/sec, with triphasic waveform. Proximal superficial femoral artery: 78.6 cm/sec, with triphasic waveform. Mid superficial femoral artery: 78.6 cm/sec, with triphasic waveform. Distal superficial femoral artery: 57.6 cm/sec, with triphasic waveform. Popliteal artery: 54.7 cm/sec, with triphasic waveform. Posterior tibial artery: 73.6 cm/sec, with triphasic waveform. Anterior tibial artery/dorsalis pedis: 66 cm/sec, with triphasic waveform. Bautista-scale imaging description: Scattered calcified atherosclerotic calcifications throughout the ca lf arteries Left lower extremity: Common femoral artery: 113.3 cm/sec, with triphasic waveform. Deep femoral artery: 78.3 cm/sec, with triphasic waveform. Proximal superficial femoral artery: 99.7 cm/sec, with triphasic waveform. Mid superficial femoral artery: 113.9 cm/sec, with triphasic waveform. Distal superficial femoral artery: 62.1 cm/sec, with triphasic waveform. Popliteal artery: 65.6 cm/sec, with triphasic waveform. Posterior tibial artery: 63.9 cm/sec, with triphasic waveform. Anterior tibial artery/dorsalis pedis: 69.9 cm/sec, with triphasic waveform. Bautista-scale imaging description: Scattered calcified hepatosplenic calcifications noted throughout th e imaged calf arteries. IMPRESSION: Scattered calcified atherosclerotic calcifications throughout the bilateral calf arteries. Otherwise, widely patent bilateral lower extremity arterial vasculature with normal appearing vascular waveform s and no hemodynamically significant stenosis is identified. Reviewed by: Bryn Martínez MD on 10/03/2021 10:00 AM [facility] Approved by: Bryn Martínez MD on 10/03/2021 10:00 AM [facility] Station ID: [id number]
== END 2021-10-03 09:15 | disposition home or self-care (01) ==
LOC: DI 09:14
PROVIDERS: ATTEND Nurse Practitioner Family
DX: I70.203 Unspecified atherosclerosis of native arteries of extremities, bilateral legs (principal)
CPT/HCPCS: 93925

== ENCOUNTER 2022-02-22 13:59 | Outpatient (CLI) | payer OTHER ==
--- NOTE | 2022-02-22 15:46 | DEXA Report ---
PROCEDURE: Dexa Spine and/or Hip INDICATIONS: HIST OF FRAGILITY FRACTURE TECHNIQUE: Dual energy x-ray absorptiometry (DXA) was performed on a [employer] System. Regions measur ed are the AP Spine, femoral neck, and if needed forearm. COMPARISON: None. FINDINGS: Lumbar Spine: Bone Mineral Density 1.560 g/cm/cm,T score 2.6, normal. Suspect artificially elevated due to prono unced degenerative changes present on the scanogram. Left Hip: Bone Mineral Density 1.048 g/cm/cm,T score -0.4, normal Left Femoral Neck: Bone Mineral Density 0.890 g/cm/cm, T score -1.4, osteopenia (T score greater or equal to -1.0: NORMAL) (T score from -1.1 to -2.4: OSTEOPENIA) (T score less than or equal to -2.5 to: OSTEOPOROSIS) Impression: Osteopenia. Patients with diagnosis of osteoporosis or osteopenia should have regular bone mineral density assess ment. For those eligible for Medicare, routine testing is allowed once every 2 years. Testing frequ ency can be increased for patients who have rapidly progressing disease or for those who are receivin g medical therapy to restore bone mass. Reviewed by: Jaime Lopez MD on 02/22/2022 3:45 PM PDT Approved by: Jaime Lopez MD on 02/22/2022 3:45 PM PDT Station ID: [id number]
== END 2022-02-22 14:00 | disposition home or self-care (01) ==
LOC: DI 13:59
PROVIDERS: ATTEND Nurse Practitioner Family
DX: M85.88 Other specified disorders of bone density and structure, other site (principal); Z87.310 Personal history of (healed) osteoporosis fracture

== ENCOUNTER 2022-06-09 07:10 | Day surgery (SDC) | payer MEDICARE, OTHER ==
[2022-06-09] MEDS ORDERED: LACTATED RINGERS 1,000 ML IV ONE (07:16)
[2022-06-09] MEDS ORDERED: PROPOFOL 500 MG/50 ML 500 MG/50 ML VIAL ONE (07:49)
[2022-06-09] MEDS ORDERED: PROPOFOL 200 MG/20 ML VIAL IVP ONE (07:50)
--- NOTE | 2022-06-09 07:59 | ANESTHESIA ---
Pre-Anesthesia VS, & Labs - Diagnosis history of colon polyps - Procedure colonoscopy Vital Signs: Temp Pulse Resp BP Pulse Ox O2 Flow Rate 36 C L 52 L 18 156/99 H 97 06/09/22 07:23 06/09/22 07:23 06/09/22 07:23 06/09/22 07:23 06/09/22 07:23 Height: 5 ft 10 in Weight (kg): 111 kg Body Mass Index: 35.1 BMI Classification: Obese - NPO >8 hours - Lab Results Current Lab Results: Laboratory Tests 06/09/22 07:46: POC Whole Bld Glucose 128 H Lab results reviewed: Yes Home Medications and Allergies Doxazosin [Cardura] 4 mg PO DAILY 02/15/13 Metformin HCl 1,000 mg PO BID 02/15/13 Cholecalciferol (Vitamin D3) [Vitamin D3] 2,000 unit PO DAILY 01/23/18 LORazepam [Lorazepam] 0.5 mg PO BID PRN 01/23/18 lisinopriL [Lisinopril] 20 mg PO BID 01/23/18 Apixaban [Eliquis] 5 mg PO BID 07/21/20 Insulin Glargine [Lantus Solostar] 19 unit SQ DAILY 07/21/20 Furosemide [Lasix] 20 mg PO DAILY 01/01/21 Dupilumab [Dupixent Syringe] 300 mg SQ .Q2W 09/06/21 Fluticasone [Flonase] 2 sprays DILLON DAILY 09/06/21 Magnesium Citrate 100 mg PO DAILY 09/06/21 Metoprolol Succinate [Toprol Xl] 50 mg PO DAILY 09/06/21 amLODIPine [Norvasc] 5 mg PO DAILY 09/06/21 predniSONE [Deltasone] 10 mg PO DAILY 09/06/21 Allergies/Adverse Reactions: Allergies Allergy/AdvReac Type Severity Reaction Status Date / Time licorice Allergy Severe Anaphylaxis Verified 09/22/21 15:56 plague vaccine Allergy extreme Verified 09/22/21 15:56 high fever zolpidem Allergy Anaphylaxis Verified 09/22/21 15:56 Anes History & Medical History - Anesthetic History Anesthesia Complications: reports: No previous complications - Medical History Cardiovascular: reports: Hypertension, Coronary artery disease, Atrial fibrillation, Arrhythmia, Other Pulmonary: reports: Asthma, Shortness of breath, Sleep apnea, Other Gastrointestinal: reports: Other Urinary: reports: Benign prostate hypertrophy, Other Neuro: reports: CVA (residual memory loss), Other Musculoskeletal: reports: Osteoarthritis Endocrine/Autoimmune: reports: Type 2 diabetes Blood Disorders: reports: None Skin: reports: Other Smoking Status: Never smoker Psychosocial: reports: No issues indicated 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) - Surgical History General: reports: Cholecystectomy, Colonoscopy Eyes Ears Nose Throat (EENT): reports: Other Cardiothoracic: reports: CABG, Coronary stent Urologic: reports: Bladder surgery Orthopedic: reports: Arthroscopic surgery Exam General: Alert, Oriented x3, Cooperative, No acute distress Dental: Poor dentition Mouth Openin Fingerbreadth Neck Mobility: Normal Mallampati classification: III Thyromental Distance: 4-6 cm Mental/Cognitive Status: Alert/Oriented X3, Normal for patient Plan Anesthesia Type: General, Total IV Consent for Procedure(s) Verified and Reviewed: Yes Code Status: Attempt Resuscitation ASA classification: 3-Severe systemic disease Is this case an emergency?: No
--- NOTE | 2022-06-09 08:12 | HISTORY & PHYSICAL EXAMINATION ---
Chief Complaint - Chief Complaint Chief Complaint: history colon polyp History of Present Illness - History Obtained From Records Reviewed: yes History obtained from: pt Exam Limitations: none - History of Present Illness HPI Comment/Other: her for surveillance colonoscopy. no problems History - Past Medical History Cardiovascular: reports: Hypertension, Coronary artery disease, Atrial fibrillation, Arrhythmia, Other Respiratory: reports: Asthma, Shortness of breath, Sleep apnea, Other Neuro: reports: CVA (residual memory loss), Other Endocrine/Autoimmune: reports: Type 2 diabetes GI: reports: Other : reports: Benign prostate hypertrophy, Other HEENT: reports: Chronic vision loss, Chronic hearing loss, Other Psych: reports: Anxiety, Panic attacks, Post traumatic stress disorder Musculoskeletal: reports: Osteoarthritis Derm: reports: Other MRSA Hx?: No - Past Surgical History General: reports: Cholecystectomy, Colonoscopy Ortho: reports: Arthroscopic surgery Cardiovascular: reports: CABG, Coronary stent HEENT: reports: Other - Family & Social History Family History: Mother: , Cancer, Father: , Cancer Family History Comment/Other: Reports his mother in her late 80s of "some kind of stomach cancer". Father "young" with "cancer". He has a half brother and 3-4 half sisters but is unsure of their health status. 2 daughters with his first are healthy. Living Situation: With spouse/s.o. Social History Notes: Pt lives at home with his spouse and their dog in a multi- level home. 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 Prior to admission he was independent with ADLs and iADLs but occasionally needs help getting his socks on. He denies tobacco use, alcohol use, marijuana or illicit drug use. - Substance History Use: Uses substance without health or social issues: NONE - POLST Patient has POLST: No Meds/Allgy - Home Medications Home Medications: Ambulatory Orders Medication Instructions Recorded Confirmed Doxazosin [Cardura] 4 mg PO DAILY 02/15/13 09/23/21 Metformin HCl 1,000 mg PO BID 02/15/13 09/23/21 Albuterol [Ventolin Hfa] 2 puffs INH Q4H PRN #1 inhaler 01/10/14 09/23/21 Cholecalciferol (Vitamin D3) 2,000 unit PO DAILY 01/23/18 09/23/21 [Vitamin D3] LORazepam [Lorazepam] 0.5 mg PO BID PRN 01/23/18 09/23/21 lisinopriL [Lisinopril] 20 mg PO BID 01/23/18 09/23/21 Apixaban [Eliquis] 5 mg PO BID 07/21/20 09/23/21 Insulin Glargine [Lantus Solostar] 19 unit SQ DAILY 07/21/20 09/23/21 Furosemide [Lasix] 20 mg PO DAILY 01/01/21 09/23/21 Dupilumab [Dupixent Syringe] 300 mg SQ .Q2W 09/06/21 09/23/21 Fluticasone [Flonase] 2 sprays DILLON DAILY 09/06/21 09/23/21 Magnesium Citrate 100 mg PO DAILY 09/06/21 09/23/21 Metoprolol Succinate [Toprol Xl] 50 mg PO DAILY 09/06/21 09/23/21 amLODIPine [Norvasc] 5 mg PO DAILY 09/06/21 09/23/21 predniSONE [Deltasone] 10 mg PO DAILY 09/06/21 09/23/21 Potassium Chloride [K-Dur] 20 meq PO DAILY #28 tablet 09/09/21 09/23/21 - Allergies Allergies/Adverse Reactions: Allergies Allergy/AdvReac Type Severity Reaction Status Date / Time licorice Allergy Severe Anaphylaxis Verified 09/22/21 15:56 plague vaccine Allergy extreme Verified 09/22/21 15:56 high fever zolpidem Allergy Anaphylaxis Verified 09/22/21 15:56 Review of Systems - Other Findings Other Findings: 10 pt ros as above otherwise unremarkable Exam - Vital Signs Vital Signs: Vital Signs x48h Temp Pulse Resp BP Pulse Ox 06/09/22 07:23 36 C L 52 L 18 156/99 H 97 - Physical Exam General Appearance: positive: No acute distress, Alert Eyes Bilateral: positive: No scleral icterus ENT: positive: No signs of dehydration Neck: positive: No JVD, Trachea midline Respiratory: positive: No respiratory distress, Breath sounds nml Cardiovascular: positive: Regular rate & rhythm Abdomen: positive: Non-tender, No distention Neurologic/Psychiatric: positive: Oriented x3 Conclusion/Plan - Problem List (1) History of adenomatous polyp of colon Conclusion/Plan: plan surveillance colonoscopy. parq held and consent obtained - Lab Results Lab results reviewed: Yes
[2022-06-09] MEDS ORDERED: LACTATED RINGERS 700 ML IV ONE (08:57)
[2022-06-09 09:14] VITALS: BP 164/90
--- NOTE | 2022-06-09 09:28 | ANESTHESIA POST OP EVALUATION ---
Anesthesia Post Eval - Post Anesthesia Eval Vitals: Last Vital Signs Temp 36.2 C L 06/09/22 09:12 Pulse 77 06/09/22 09:12 Resp 16 06/09/22 09:12 BP 164/90 H 06/09/22 09:12 Pulse Ox 94 06/09/22 09:12 O2 Flow Rate CV Function Including HR & BP: Stable Pain Control: Satisfactory Nausea & Vomiting: Negative Mental Status: Baseline Respiratory Status: Airway Patent Hydration Status: Satisfactory Anesthesia Complications: None
== END 2022-06-09 07:11 | disposition home or self-care (01) ==
LOC: SDS 07:10
PROVIDERS: ATTEND Surgery
PROC: 0DBH8ZZ Excision of Cecum, Via Natural or Artificial Opening Endoscopic (ICD-10-PCS; principal; 2022-06-09 08:30)
DX: Z12.11 Encounter for screening for malignant neoplasm of colon (principal); D12.0 Benign neoplasm of cecum; K57.30 Diverticulosis of large intestine without perforation or abscess without bleeding; E11.9 Type 2 diabetes mellitus without complications; I48.91 Unspecified atrial fibrillation; G47.30 Sleep apnea, unspecified; I25.10 Atherosclerotic heart disease of native coronary artery without angina pectoris; N40.0 Benign prostatic hyperplasia without lower urinary tract symptoms; J45.909 Unspecified asthma, uncomplicated; Z79.84 Long term (current) use of oral hypoglycemic drugs; Z79.4 Long term (current) use of insulin; E66.9 Obesity, unspecified; Z68.35 Body mass index [BMI] 35.0-35.9, adult
CPT/HCPCS: 45380; J7120

== ENCOUNTER 2022-07-22 11:28 | Outpatient (CLI) | payer OTHER ==
--- NOTE | 2022-07-22 12:29 | Ultrasound Report ---
PROCEDURE: Duplex Ext Veins Left INDICATIONS: PAIN IN LEFT CALF TECHNIQUE: Real-time imaging, as well as color and pulse Doppler interrogation, were performed of the lower extr emity deep veins from the inguinal ligament to the popliteal fossa. COMPARISON: None. *FINDINGS: The deep veins are normally compressible, and free of intraluminal thrombus. Color and p ulse Doppler demonstrate normal phasic intraluminal flow. There is normal augmentation response to d istal compression maneuver. Significant edema in the area of patient discomfort. IMPRESSION: Negative duplex venous ultrasound for left lower extremity DVT. Reviewed by: Geovanny Bowling MD on 07/22/2022 12:27 PM PST Approved by: Geovanny Bowling MD on 07/22/2022 12:27 PM PST Station ID: [id number]
== END 2022-07-22 11:29 | disposition home or self-care (01) ==
LOC: DI 11:28
PROVIDERS: ATTEND Physician Assistant
DX: M79.662 Pain in left lower leg (principal)

== ENCOUNTER 2022-09-24 01:38 | Outpatient (CLI) | payer OTHER | END 2022-09-24 01:39 | disposition EMS.NT | LOC: EMS 01:38 | DX: Z03.89 Encounter for observation for other suspected diseases and conditions ruled out (principal) ==

== ENCOUNTER 2022-10-13 05:28 | Outpatient (CLI) | payer OTHER | END 2022-10-13 05:29 | disposition EMS.NT | LOC: EMS 05:28 | DX: S51.812A Laceration without foreign body of left forearm, initial encounter (principal); W01.0XXA Fall on same level from slipping, tripping and stumbling without subsequent striking against object, initial encounter; Y92.009 Unspecified place in unspecified non-institutional (private) residence as the place of occurrence of the external cause ==

== ENCOUNTER 2023-03-14 08:40 | Emergency (ER) | payer OTHER, MEDICARE ==
--- NOTE | 2023-03-14 09:19 | ED Physician Documentation ---
History of Present Illness - Stated complaint Stated Complaint: BILAT FOOT BLISTERS - Chief complaint Chief Complaint: Wound - Additonal information Additional information: Patient is 77-year-old male presenting to the emergency department with ulceration to his right leg. Accompanied by was present at bedside. Past medical significant for diabetes, chronic lower extremity edema, peripheral neuropathy. No specific trauma noted, family reports that initially he had a blister on the leg which subsequently burst and now there are 3 areas of open ulceration on the leg. He denies any fever, chills, nausea, vomiting or other systemic symptoms. They report that they tried to make an appointment with her doctor and they were "all booked up to the end of the month" and so instead of making an appointment to be seen by their primary care doctor they decided to "check into the hospital instead". He reports that his blood sugars have been well controlled at home. Otherwise denies for any fever, chills, chest pain, shortness of breath, abdominal pain, nausea, vomiting, diarrhea, constipation. Review of Systems Constitutional: denies: Fever Eyes: denies: Loss of vision Ears: denies: Loss of hearing Nose: denies: Rhinorrhea / runny nose Throat: denies: Dental pain / toothache Cardiac: denies: Chest pain / pressure Respiratory: denies: Dyspnea GI: denies: Abdominal Pain : denies: Dysuria Skin: denies: Rash Musculoskeletal: denies: Neck pain Neurologic: denies: Generalized weakness Psychiatric: denies: Depressed Endocrine: denies: Polydypsia PD PAST MEDICAL HISTORY - Past Medical History Cardiovascular: Hypertension, Coronary artery disease, Atrial fibrillation, Arrhythmia, Other Respiratory: Asthma, Shortness of breath, Sleep apnea, Other Neuro: CVA (residual memory loss), Other Endocrine/Autoimmune: Type 2 diabetes GI: Other : Benign prostate hypertrophy, Other HEENT: Chronic vision loss, Chronic hearing loss, Other Psych: Anxiety, Panic attacks, Post traumatic stress disorder Musculoskeletal: Osteoarthritis Derm: Other - Past Surgical History Past Surgical History: Yes General: Cholecystectomy, Colonoscopy Ortho: Arthroscopic surgery Cardiovascular: CABG, Coronary stent HEENT: Other - Present Medications Home Medications: Ambulatory Orders Medication Instructions Recorded Confirmed Metformin HCl 1,000 mg PO BID 02/15/13 03/14/23 Albuterol [Ventolin Hfa] 2 puffs INH Q4H PRN #1 inhaler 01/10/14 03/14/23 Cholecalciferol (Vitamin D3) 2,000 unit PO DAILY 01/23/18 03/14/23 [Vitamin D3] lisinopriL [Lisinopril] 40 mg PO BID 01/23/18 03/14/23 Apixaban [Eliquis] 5 mg PO BID 07/21/20 03/14/23 Furosemide [Lasix] 20 mg PO DAILY 01/01/21 03/14/23 Magnesium Citrate 100 mg PO DAILY 09/06/21 03/14/23 Metoprolol Succinate [Toprol Xl] 50 mg PO DAILY 09/06/21 03/14/23 Aspirin [Moore Aspirin] 81 mg PO DAILY 03/14/23 03/14/23 Atorvastatin Calcium 40 mg PO DAILY 03/14/23 03/14/23 Bacitracin Zinc Oint 1 applic TOP BID #1 each 03/14/23 Doxycycline [Vibramycin] 100 mg PO QD 03/14/23 03/14/23 Insulin Glargine [Lantus Solostar] 22 unit SUBQ HS 03/14/23 03/14/23 Omeprazole Magnesium 20 mg PO DAILY 03/14/23 03/14/23 Potassium Citrate [Potassium 5 meq PO DAILY 03/14/23 03/14/23 Citrate ER] - Allergies Allergies/Adverse Reactions: Allergies Allergy/AdvReac Type Severity Reaction Status Date / Time licorice Allergy Severe Anaphylaxis Verified 03/14/23 08:59 plague vaccine Allergy extreme Verified 03/14/23 08:59 high fever zolpidem Allergy Anaphylaxis Verified 03/14/23 08:59 - Social History Does the pt smoke?: No Smoking Status: Never smoker Does the pt drink ETOH?: Yes Does the pt have substance abuse?: No - Immunizations Immunizations are current?: No Immunizations: TDAP >10years/unknown - POLST Patient has POLST: No PD ED PE NORMAL - Vitals Vital signs reviewed: Yes - General General: Alert and oriented X 3 - HEENT HEENT: Atraumatic - Respiratory Respiratory: No respiratory distress - Extremities Extremities: Other (There are 3 areas of circular ulceration on the lateral aspect of the right calf. There is no erythema, rubor, induration, fluctuance or purulent drainage.) Results - Vitals Vitals: Vital Signs - 24 hr 03/14/23 08:55 Temperature 36.7 C Heart Rate 71 Respiratory 18 Rate Blood Pressure 148/107 H O2 Saturation 98 Oxygen O2 Source Room air - Labs Labs: Laboratory Tests 03/14/23 03/14/23 03/14/23 09:39 09:57 09:57 WBC 10.8 RBC 4.19 L Hgb 13.2 L Hct 39.8 L MCV 95.0 H MCH 31.5 H MCHC 33.2 RDW 13.7 Plt Count 243 MPV 10.1 Neut # (Auto) 8.0 H Lymph # (Auto) 1.5 [place] # (Auto) 0.7 Eos # (Auto) 0.5 Baso # (Auto) 0.1 Absolute Nucleated RBC 0.00 Nucleated RBC % 0.0 Sodium 141 Potassium 3.7 Chloride 105 Carbon Dioxide 31 Anion Gap 5.0 L BUN 17 Creatinine 1.1 Estimated GFR (MDRD) 65 L Glucose 122 H POC Whole Bld Glucose 123 H Calcium 9.2 Total Bilirubin 1.7 H AST 13 ALT 12 Alkaline Phosphatase 58 Total Protein 6.4 Albumin 3.8 Globulin 2.6 Albumin/Globulin Ratio 1.5 Lipase 21 PD Medical Decision Making - ED course Complexity details: reviewed old records, reviewed results, considered differential, d/w patient, d/w family ED course: Patient 77-year-old male with known history of diabetes and chronic lower extremity edema presenting to the emergency department with ulceration on the lateral aspect of his right leg. 3 discrete areas of ulceration noted on the lateral aspect of the right without erythema, edema, induration or fluctuance. No signs of active infection and the wounds otherwise appear to be well cared for. Labs obtained did not demonstrate any significant leukocytosis or severe electrolyte abnormality. Of note there is a mild elevation in bilirubin however this appears to be chronic for the patient and he is not having any abdominal pain that would suggest acute biliary obstruction. X-ray obtained was negative for free air/gas pattern or indications osteomyelitis per my interpretation. Wound care instructions were given to family and they were encouraged to follow- up carefully with primary care. Patient does have high risk for complicated healing and will likely need referral to wound care or otherwise careful Departure - Departure Disposition: 01 Home, Self Care Clinical Impression: Stasis dermatitis of both legs Leg wound, right Qualifiers: Encounter type: initial encounter Qualified Code(s): S81.801A - Unspecified open wound, right lower leg, initial encounter Prescriptions: Bacitracin Zinc Oint 1 applic TOP BID #1 each Comments: Thank you for allowing us to care for you today [facility]. Prescription sent to [facility]. Today in the emergency department your evaluated for any possible life- threatening medical emergency. You do have open ulcerations on your right calf. You have multiple risk factors for infection and chronic nonhealing or otherwise complicated wounds however there is no indication of infection at this time. Your blood work and x-ray were otherwise reassuring. I would like you to apply topical antibiotic ointment such as bacitracin twice daily to this area. I recommend daily dressing changes. Otherwise continue to use your compression Stockings and keeping her legs elevated is much as possible. It is very important that you follow-up with your primary care doctor. Please contact them today to make An appointment. Please continue to monitor the area carefully and if there is any concern for developing infection such as increased heat, redness, swelling or purulent drainage or if you develop any symptoms of infection such as fever, chills, nausea or vomiting please return to the emergency department. Forms: PCP List
[2023-03-14 10:01] LABS: BASOPHILS # (AUTO) 0.1 10^3/uL (0.0-0.1); BASOPHILS % (AUTO) 0.6 %; EOSINOPHILS # (AUTO) 0.5 10^3/uL (0.0-0.7); EOSINOPHILS % (AUTO) 4.2 %; HCT - HEMATOCRIT 39.8 % (42.0-52.0); HGB - HEMOGLOBIN 13.2 g/dL (14.0-18.0); LYMPHOCYTES # (AUTO) 1.5 10^3/uL (1.5-3.5); LYMPHOCYTES % (AUTO) 14.2 %; MEAN CORPUSCULAR HEMOGLOBIN 31.5 pg (27.0-31.0); MEAN CORPUSCULAR HGB CONC 33.2 g/dL (32.0-36.0); MEAN PLATELET VOLUME 10.1 fL (7.4-11.4); MONOCYTES # (AUTO) 0.7 10^3/uL (0.0-1.0); MONOCYTES % (AUTO) 6.6 %; NEUTROPHILS % (AUTO) 74.1 %; PLT - PLATELET COUNT 243 10^3/uL (130-450); RED BLOOD COUNT 4.19 10^6/uL (4.70-6.10); RED CELL DISTRIBUTION WIDTH 13.7 % (12.0-15.0); WHITE BLOOD COUNT 10.8 x10^3/uL (4.8-10.8)
[2023-03-14 10:15] LABS: ALBUMIN 3.8 g/dL (3.2-5.5); ALBUMIN/GLOBULIN RATIO 1.5 (1.0-2.2); BILIRUBIN,TOTAL 1.7 mg/dL (0.2-1.0); CALCIUM 9.2 mg/dL (8.5-10.3); CREATININE 1.1 mg/dL (0.6-1.3); POTASSIUM 3.7 mmol/L (3.5-4.5); TOTAL PROTEIN 6.4 g/dL (6.4-8.9)
[2023-03-14] MEDS: BACITRACIN ZINC OINT 1 PACKET TOP STA (10:33)
[2023-03-14 10:51] VITALS: BP 145/95; O2SAT 97
--- NOTE | 2023-03-14 11:24 | XRAY Report ---
PROCEDURE: Tib/Fib RT INDICATIONS: Chronic ulceration TECHNIQUE: 3 views of the tibia and fibula were acquired. COMPARISON: None. FINDINGS: Bones: No fractures or dislocations. No suspicious bony lesions. Posttraumatic changes within the d istal tibiofibular syndesmosis. Soft tissues: No suspicious soft tissue calcifications or masses. Diffuse soft tissue swelling. Athe rosclerotic vascular calcifications. IMPRESSION: No acute bony abnormality. No cortical erosions or osseous lucencies to suggest osteomyelitis. Reviewed by: Mehrdad Patel MD on 03/14/2023 11:23 AM PDT Approved by: Mehrdad Patel MD on 03/14/2023 11:23 AM PDT Station ID: [id number]
== END 2023-03-14 11:00 | disposition home or self-care (01) ==
LOC: ED 08:40
DX: I87.2 Venous insufficiency (chronic) (peripheral) (principal); S81.801A Unspecified open wound, right lower leg, initial encounter; X58.XXXA Exposure to other specified factors, initial encounter; I10 Essential (primary) hypertension; I25.810 Atherosclerosis of coronary artery bypass graft(s) without angina pectoris; I48.91 Unspecified atrial fibrillation; E11.9 Type 2 diabetes mellitus without complications; I69.311 Memory deficit following cerebral infarction; Z79.01 Long term (current) use of anticoagulants; Z79.84 Long term (current) use of oral hypoglycemic drugs; Z79.82 Long term (current) use of aspirin; Z79.4 Long term (current) use of insulin; Z79.899 Other long term (current) drug therapy; Z95.1 Presence of aortocoronary bypass graft
CPT/HCPCS: 36415; 80053; 83690; 85025; 99283; 99284

== ENCOUNTER 2023-04-11 07:57 | Emergency (ER) | payer OTHER ==
--- NOTE | 2023-04-11 08:27 | ED Physician Documentation ---
PD HPI LOWER EXT INJURY - Stated complaint Stated Complaint: BILAT LEG SWELLING,PX - Chief complaint Chief Complaint: General - History obtained from History obtained from: Patient, Family (spouse) - History of Present Illness PD HPI LOW EXT INJURY LOCATION: Lower leg ( noted increased edema in both legs, but now also some purple spots on left bello withut noted injury.) Review of Systems Constitutional: denies: Myalgias PD PAST MEDICAL HISTORY - Past Medical History Cardiovascular: Hypertension, Coronary artery disease, Atrial fibrillation, Arrhythmia, Other Respiratory: Asthma, Shortness of breath, Sleep apnea, Other Neuro: CVA (residual memory loss), Other Endocrine/Autoimmune: Type 2 diabetes GI: Other : Benign prostate hypertrophy, Other HEENT: Chronic vision loss, Chronic hearing loss, Other Psych: Anxiety, Panic attacks, Post traumatic stress disorder Musculoskeletal: Osteoarthritis Derm: Other - Past Surgical History Past Surgical History: Yes General: Cholecystectomy, Colonoscopy Ortho: Arthroscopic surgery Cardiovascular: CABG, Coronary stent HEENT: Other - Present Medications Home Medications: Ambulatory Orders Medication Instructions Recorded Confirmed Metformin HCl 1,000 mg PO BID 02/15/13 04/11/23 Albuterol [Ventolin Hfa] 2 puffs INH Q4H PRN #1 inhaler 01/10/14 04/11/23 Cholecalciferol (Vitamin D3) 2,000 unit PO DAILY 01/23/18 04/11/23 [Vitamin D3] lisinopriL [Lisinopril] 40 mg PO DAILY 01/23/18 04/11/23 Apixaban [Eliquis] 5 mg PO BID 07/21/20 04/11/23 Furosemide [Lasix] 20 mg PO DAILY 01/01/21 04/11/23 Magnesium Citrate 100 mg PO DAILY 09/06/21 04/11/23 Metoprolol Succinate [Toprol Xl] 50 mg PO DAILY 09/06/21 04/11/23 Aspirin [Devola Aspirin] 81 mg PO DAILY 03/14/23 04/11/23 Atorvastatin Calcium 40 mg PO DAILY 03/14/23 04/11/23 Bacitracin Zinc Oint 1 applic TOP BID #1 each 03/14/23 04/11/23 Doxycycline [Vibramycin] 100 mg PO QD 03/14/23 04/11/23 Insulin Glargine [Lantus Solostar] 22 unit SUBQ HS 03/14/23 04/11/23 Omeprazole Magnesium 20 mg PO DAILY 03/14/23 04/11/23 Potassium Citrate [Potassium 5 meq PO DAILY 03/14/23 04/11/23 Citrate ER] Fluticasone/Salmeterol [Advair 1 puffs IH BID 04/11/23 04/11/23 250-50 Diskus] LORazepam [Ativan] 0.5 mg PO BID PRN 04/11/23 04/11/23 Prednisone [Corine] 5 mg PO DAILY 04/11/23 04/11/23 amLODIPine [Norvasc] 5 mg PO DAILY 04/11/23 04/11/23 cephALEXin [Keflex] 500 mg PO TID #20 cap 04/11/23 - Allergies Allergies/Adverse Reactions: Allergies Allergy/AdvReac Type Severity Reaction Status Date / Time licorice Allergy Severe Anaphylaxis Verified 03/14/23 08:59 plague vaccine Allergy extreme Verified 03/14/23 08:59 high fever zolpidem Allergy Anaphylaxis Verified 03/14/23 08:59 - Social History Does the pt smoke?: No Smoking Status: Never smoker Does the pt drink ETOH?: Yes Does the pt have substance abuse?: No - Immunizations Immunizations are current?: No Immunizations: TDAP >10years/unknown - POLST Patient has POLST: No PD ED PE NORMAL - Vitals Vital signs reviewed: Yes - General General: Other - HEENT HEENT: Moist mucous membranes - Respiratory Respiratory: No respiratory distress, Clear bilaterally - Abdomen Abdomen: Soft, Non tender - Derm Derm: Normal color, Warm and dry (1+ edema in both lower leg. Left snd pink to purple rounded spots without vesicle. Mild tender. ) Results - Vitals Vitals: Vital Signs - 24 hr 04/11/23 04/11/23 04/11/23 08:05 08:33 10:41 Temperature 36.9 C Heart Rate 87 78 92 Respiratory 18 18 28 H Rate Blood Pressure 157/76 H 157/74 H 172/88 H O2 Saturation 96 100 97 04/11/23 11:48 Temperature 36.4 C L Heart Rate 97 Respiratory 22 Rate Blood Pressure 144/82 H O2 Saturation 94 Oxygen O2 Source Room air - Labs Labs: Laboratory Tests 04/11/23 04/11/23 04/11/23 08:58 08:58 08:58 WBC 16.8 H RBC 4.60 L Hgb 14.6 Hct 43.5 MCV 94.6 H MCH 31.7 H MCHC 33.6 RDW 13.8 Plt Count 244 MPV 9.8 Neut # (Auto) 14.0 H Lymph # (Auto) 1.6 [place] # (Auto) 1.0 Eos # (Auto) 0.1 Baso # (Auto) 0.0 Absolute Nucleated RBC 0.00 Nucleated RBC % 0.0 Sodium 142 Potassium 3.5 Chloride 103 Carbon Dioxide 32 Anion Gap 7.0 BUN 27 H Creatinine 1.1 Estimated GFR (MDRD) 65 L Glucose 113 H Calcium 9.7 Magnesium 1.3 L Total Bilirubin 2.9 H AST 13 ALT 11 Alkaline Phosphatase 66 B-Natriuretic Peptide 372 H Total Protein 6.9 Albumin 4.2 Globulin 2.7 Albumin/Globulin Ratio 1.6 Lipase 12 Urine Color Urine Clarity Urine pH Ur Specific [place] Urine Protein Urine Glucose (UA) Urine Ketones Urine Occult Blood Urine Nitrite Urine Bilirubin Urine Urobilinogen Ur Leukocyte Esterase Ur Microscopic Review Urine Culture Comments 04/11/23 11:35 WBC RBC Hgb Hct MCV MCH MCHC RDW Plt Count MPV Neut # (Auto) Lymph # (Auto) [place] # (Auto) Eos # (Auto) Baso # (Auto) Absolute Nucleated RBC Nucleated RBC % Sodium Potassium Chloride Carbon Dioxide Anion Gap BUN Creatinine Estimated GFR (MDRD) Glucose Calcium Magnesium Total Bilirubin AST ALT Alkaline Phosphatase B-Natriuretic Peptide Total Protein Albumin Globulin Albumin/Globulin Ratio Lipase Urine Color YELLOW Urine Clarity CLEAR Urine pH 6.0 Ur Specific [place] 1.010 Urine Protein NEGATIVE Urine Glucose (UA) NEGATIVE Urine Ketones NEGATIVE Urine Occult Blood TRACE-INTA Urine Nitrite NEGATIVE Urine Bilirubin NEGATIVE Urine Urobilinogen 0.2 (NORMAL) Ur Leukocyte Esterase NEGATIVE Ur Microscopic Review NOT INDICATED Urine Culture Comments NOT INDICATED - Rads (name of study) duplex US Relevant Findings:: Prelim report reviewed (no DVT. ), EMP independent interpretation of test PD Medical Decision Making - ED course Complexity details: reviewed results (elevated white count. Consider cellulitis rather than stasis dermatitix. ), d/w patient Departure - Departure Disposition: 01 Home, Self Care Clinical Impression: Bilateral leg edema, CHF (congestive heart failure), Redness and swelling of lower leg, Hypomagnesemia Condition: Stable Record reviewed to determine appropriate education?: Yes Instructions: ED Infec Skin Cellulitis Follow-Up: ROBERTA DE LA ROSA ARNP [Primary Care Provider] - Prescriptions: cephALEXin [Keflex] 500 mg PO TID #20 cap Comments: The ultrasound is normal without any signs of blood clots. Your blood test show normal blood count. The white count is elevated suggesting infection. Your basic kidney function is at baseline. Your electrolytes show a slightly low potassium and a moderately low magnesium. You do have the leg edema in both legs suggesting some fluid overload. There is also the redness and warmth of the left lower leg suggestive of a skin infection called cellulitis. Continue with your usual medications. Double your furosemide/Lasix for the next week. Double your magnesium for the next week as well. You could increase your potassium for the next week as well. We will add the cephalexin antibiotic 3 times daily for the next week presuming skin infection of the left lower leg. Return if not improving on either symptoms over the next several days and return sooner if worse. Follow-up with your primary care next week as planned. I sent your prescription to [facility] in [place]. Forms: PCP List Discharge Date/Time: 04/11/23 12:04
[2023-04-11] MEDS ORDERED: FUROSEMIDE 40 MG/4 ML VIAL IVP STA (08:47)
[2023-04-11 09:08] LABS: BASOPHILS % (AUTO) 0.2 %; EOSINOPHILS # (AUTO) 0.1 10^3/uL (0.0-0.7); EOSINOPHILS % (AUTO) 0.4 %; HCT - HEMATOCRIT 43.5 % (42.0-52.0); HGB - HEMOGLOBIN 14.6 g/dL (14.0-18.0); LYMPHOCYTES # (AUTO) 1.6 10^3/uL (1.5-3.5); LYMPHOCYTES % (AUTO) 9.6 %; MEAN CORPUSCULAR HEMOGLOBIN 31.7 pg (27.0-31.0); MEAN CORPUSCULAR HGB CONC 33.6 g/dL (32.0-36.0); MEAN CORPUSCULAR VOLUME 94.6 fL (80.0-94.0); MEAN PLATELET VOLUME 9.8 fL (7.4-11.4); MONOCYTES % (AUTO) 6.1 %; NEUTROPHILS % (AUTO) 83.4 %; PLT - PLATELET COUNT 244 10^3/uL (130-450); RED CELL DISTRIBUTION WIDTH 13.8 % (12.0-15.0); WHITE BLOOD COUNT 16.8 x10^3/uL (4.8-10.8)
[2023-04-11 09:18] LABS: ALBUMIN 4.2 g/dL (3.2-5.5); ALBUMIN/GLOBULIN RATIO 1.6 (1.0-2.2); BILIRUBIN,TOTAL 2.9 mg/dL (0.2-1.0); CALCIUM 9.7 mg/dL (8.5-10.3); CREATININE 1.1 mg/dL (0.6-1.3); MAGNESIUM 1.3 mg/dL (1.7-2.3); POTASSIUM 3.5 mmol/L (3.5-4.5); TOTAL PROTEIN 6.9 g/dL (6.4-8.9)
[2023-04-11] MEDS ORDERED: HYDROmorphone 1 MG/ML CARPUJECT IVP STA (09:37)
[2023-04-11] MEDS ORDERED: POTASSIUM BICARB 25 MEQ TABLET PO STA (10:10)
[2023-04-11] MEDS ORDERED: MAGNESIUM SULFATE 2 GRAM 2 GM/50 ML BAG IV ONE (10:10)
--- NOTE | 2023-04-11 11:05 | Ultrasound Report ---
PROCEDURE: Duplex Ext Veins Bilateral INDICATIONS: Bilateral lower extremity edema TECHNIQUE: Real-time imaging, as well as color and pulse Doppler interrogation, were performed of the deep veins of both legs from the inguinal ligament to the popliteal fossa. Attempted visualization of the calf veins was performed. COMPARISON: 07/22/2022 FINDINGS: The deep veins are normally compressible, and free of intraluminal thrombus. Color and pu lse Doppler demonstrate normal phasic intravascular flow. There is normal augmentation response to d istal compression maneuver. IMPRESSION: No evidence of deep venous thrombosis, bilateral lower extremities Reviewed by: Jay Doll MD on 04/11/2023 10:04 AM [facility] Approved by: Jay Doll MD on 04/11/2023 10:04 AM N[facility] Station ID: [id number]
[2023-04-11] MEDS ORDERED: cephALEXin 250 MG CAPSULE PO STA (11:26)
[2023-04-11 11:49] VITALS: BP 144/82; O2SAT 94
[2023-04-11 12:04] LABS: BILIRUBIN,URINE NEGATIVE (NEGATIVE); CLARITY,URINE CLEAR (CLEAR); GLUCOSE, URINE (UA) NEGATIVE (NEGATIVE); KETONES,URINE (UA) NEGATIVE (NEGATIVE); LEUKOCYTE ESTERASE, URINE NEGATIVE (NEGATIVE); NITRITE,URINE NEGATIVE (NEGATIVE); OCCULT BLOOD,URINE TRACE-INTA (NEGATIVE); PROTEIN,URINE NEGATIVE (NEGATIVE); UROBILINOGEN,URINE 0.2 (NORMAL) E.U./dL (NORMAL)
== END 2023-04-11 12:04 | disposition home or self-care (01) ==
LOC: ED 07:57
DX: I50.9 Heart failure, unspecified (principal); E83.42 Hypomagnesemia; E87.6 Hypokalemia; L53.9 Erythematous condition, unspecified
CPT/HCPCS: 36415; 80053; 81003; 83690; 83735; 83880; 85025; 93970; 96365; 96375; 99284; A9270; J1170; 81001; 87086

== ENCOUNTER 2023-05-22 13:19 | Outpatient (CLI) | payer MEDICARE, OTHER | END 2023-05-22 13:20 | disposition home or self-care (01) | LOC: LAB 13:19 | PROVIDERS: ATTEND Nurse Practitioner | DX: E83.42 Hypomagnesemia (principal) | CPT/HCPCS: 36415; 83735 ==

== ENCOUNTER 2023-06-30 13:27 | Outpatient (CLI) | payer MEDICARE, OTHER | END 2023-06-30 13:28 | disposition home or self-care (01) | LOC: DI 13:27 | PROVIDERS: ATTEND Nurse Practitioner | DX: I50.22 Chronic systolic (congestive) heart failure (principal) | CPT/HCPCS: 93306 ==

== ENCOUNTER 2023-08-10 10:40 | Outpatient (CLI) | payer MEDICARE, OTHER ==
--- NOTE | 2023-08-11 10:07 | XRAY Report ---
PROCEDURE: Foot 3+V LT INDICATIONS: INFECTION OF TOE TECHNIQUE: 3 views of the foot were acquired. COMPARISON: None. FINDINGS: Bones: No fractures or dislocations. No suspicious bony lesions. Moderate osteoarthritic changes in ankle and foot. There is osteopenia. Soft tissues: There is calcification at the Achilles tendon insertion to calcaneus, compatible with enthesopathy. Vascular calcifications consistent with atherosclerosis. Moderate soft tissue edema. IMPRESSION: 1. Moderate osteoarthritis. 2. Enthesopathy of the Achilles tendon. 3. Atherosclerosis. 4. Osteopenia. Reviewed by: Natalia Del Valle MD on 08/11/2023 10:05 AM [facility] Approved by: Natalia Del Valle MD on 08/11/2023 10:05 AM PST Station ID: [id number]
== END 2023-08-10 10:41 | disposition home or self-care (01) ==
LOC: DI.S 10:40
PROVIDERS: ATTEND Nurse Practitioner Family
DX: M19.072 Primary osteoarthritis, left ankle and foot (principal); M85.872 Other specified disorders of bone density and structure, left ankle and foot; L08.9 Local infection of the skin and subcutaneous tissue, unspecified; M77.51 Other enthesopathy of right foot and ankle

== ENCOUNTER 2024-07-12 10:34 | Observation (INO) ==
[2024-07-12 11:38] LABS: BASOPHILS # (AUTO) 0.1 10^3/uL (0.0-0.1); BASOPHILS % (AUTO) 0.6 %; EOSINOPHILS # (AUTO) 0.3 10^3/uL (0.0-0.7); EOSINOPHILS % (AUTO) 3.4 %; HCT - HEMATOCRIT 42.3 % (42.0-52.0); LYMPHOCYTES # (AUTO) 1.5 10^3/uL (1.5-3.5); LYMPHOCYTES % (AUTO) 17.9 %; MEAN CORPUSCULAR HEMOGLOBIN 31.3 pg (27.0-31.0); MEAN CORPUSCULAR HGB CONC 33.1 g/dL (32.0-36.0); MEAN CORPUSCULAR VOLUME 94.6 fL (80.0-94.0); MEAN PLATELET VOLUME 9.7 fL (7.4-11.4); MONOCYTES # (AUTO) 0.5 10^3/uL (0.0-1.0); MONOCYTES % (AUTO) 6.1 %; NEUTROPHILS # (AUTO) 5.9 10^3/uL (1.5-6.6); NEUTROPHILS % (AUTO) 71.6 %; PLT - PLATELET COUNT 225 10^3/uL (130-450); RED BLOOD COUNT 4.47 10^6/uL (4.70-6.10); RED CELL DISTRIBUTION WIDTH 13.6 % (12.0-15.0); WHITE BLOOD COUNT 8.2 x10^3/uL (4.8-10.8)
[2024-07-12 11:55] LABS: BILIRUBIN,URINE NEGATIVE (NEGATIVE); GLUCOSE, URINE (UA) NEGATIVE (NEGATIVE); KETONES,URINE (UA) NEGATIVE (NEGATIVE); LEUKOCYTE ESTERASE, URINE NEGATIVE (NEGATIVE); NITRITE,URINE NEGATIVE (NEGATIVE); OCCULT BLOOD,URINE NEGATIVE (NEGATIVE); PH,URINE 5.5 PH (5.0-7.5); PROTEIN,URINE NEGATIVE (NEGATIVE); UROBILINOGEN,URINE 0.2 (NORMAL) E.U./dL (NORMAL)
[2024-07-12 11:55] LABS: ALBUMIN 3.9 g/dL (3.2-5.5); ALBUMIN/GLOBULIN RATIO 1.4 (1.0-2.2); BILIRUBIN,TOTAL 0.9 mg/dL (0.2-1.0); CALCIUM 10.3 mg/dL (8.5-10.3); CREATININE 2.6 mg/dL (0.6-1.3); POTASSIUM 5.7 mmol/L (3.5-4.5); TOTAL PROTEIN 6.6 g/dL (6.4-8.9)
[2024-07-12 12:15] LABS: CLARITY,URINE CLEAR (CLEAR)
--- NOTE | 2024-07-12 12:23 | ED Physician Documentation ---
History of Present Illness Stated complaint Stated Complaint: IRREGULAR LABS Chief complaint Chief Complaint: General History obtained from History obtained from: Patient and Family Additonal information Additional information: Patient is an 78-year-old male sent in by his PCP for worsening creatinine over the past several days. He was seen here recently for hyperkalemia. Patient was treated for the hyperkalemia and given IV fluids. Apparently the next day he was started on Bactrim For a rash on his buttocks that has been ongoing since May. No fevers. No chills. No history of urinary retention. His diuretics were stopped. His PCP sent him back in for continued elevated creatinine and continued hyperkalemia. Patient is fully asymptomatic with no complaints. Review of Systems Constitutional Denies: Fever or Chills Ears, nose, mouth, and throat Denies: Neck pain Cardiovascular Denies: chest pain or palpitations Respiratory Denies: Cough Gastrointestinal Denies: Abdominal pain, Nausea or Vomiting Genitourinary Denies: Painful urination, Incontinence, Urinary frequency or Urinary urgency Musculoskeletal Denies: Neck pain Integumentary/Breast Denies: Rash or Dryness Meds/Allgy Home Medications Ambulatory Orders Medication Instructions Recorded Confirmed albuterol sulfate 90 mcg/actuation 2 puff inhalation Q4H PRN Wheezing 01/10/14 07/05/24 aerosol inhaler (Ventolin HFA) ##1 cholecalciferol (vitamin D3) 50 2,000 unit PO DAILY 01/23/18 07/05/24 mcg (2,000 unit) capsule (Vitamin D3) lisinopril 5 mg tablet 40 mg PO DAILY 01/23/18 07/05/24 apixaban 5 mg tablet (Eliquis) 5 mg PO BID 07/21/20 07/05/24 furosemide 20 mg tablet 20 mg PO DAILY 01/01/21 07/05/24 magnesium citrate 100 mg capsule 100 mg PO DAILY 09/06/21 07/05/24 metoprolol succinate 50 mg 50 mg PO DAILY 09/06/21 07/05/24 tablet,extended release 24 hr aspirin 81 mg chewable tablet (St 81 mg PO DAILY 03/14/23 07/05/24 Dash Aspirin) atorvastatin 40 mg tablet 40 mg PO DAILY 03/14/23 07/05/24 doxycycline hyclate 100 mg tablet 100 mg PO QD 03/14/23 07/05/24 insulin glargine 100 unit/mL (3 22 unit subcut HS 03/14/23 07/05/24 mL) subcutaneous pen (Lantus Solostar U-100 Insulin) omeprazole magnesium 20 mg 20 mg PO DAILY 03/14/23 07/05/24 capsule,delayed release potassium citrate 10 mEq (1,080 5 meq PO DAILY 03/14/23 07/05/24 mg) tablet,extended release fluticasone 250 mcg-salmeterol 50 1 puff IH BID 04/11/23 07/05/24 mcg/dose blistr powdr for inhalation (Advair Diskus) lorazepam 0.5 mg tablet 0.5 mg PO BID PRN Anxiety 04/11/23 07/05/24 prednisone 5 mg tablet,delayed 5 mg PO DAILY 04/11/23 07/05/24 release (Corine) fluconazole 200 mg tablet 200 mg PO .3 times weekly #18 tabs 06/06/24 07/05/24 (Diflucan) insulin glargine-yfgn 100 unit/mL 15 unit subcut QPM 06/06/24 07/05/24 (3 mL) subcutaneous pen (Semglee (insulin glargine-yfgn) Pen) nitroglycerin 0.4 mg sublingual 0.4 mg sublingual Q5M PRN 06/06/24 07/05/24 tablet spironolactone 25 mg tablet 25 mg PO QDAY 06/06/24 07/05/24 terbinafine HCl 1 % topical cream 1 applic topical BID #30 grams 06/06/24 07/05/24 (Jock Itch (terbinafine)) metformin 500 mg tablet 1,000 mg PO BID 07/05/24 07/05/24 zinc oxide-cod liver oil 40 % 1 applic topical TID #113 grams 07/05/24 07/05/24 topical paste (Desitin) sulfamethoxazole 800 1 tab PO BID 10 days #20 tabs 07/10/24 mg-trimethoprim 160 mg tablet (Bactrim DS) Allergies Allergies Allergy/AdvReac Type Severity Reaction Status Date / Time licorice Allergy Severe Anaphylaxis Verified 07/12/24 11:17 plague vaccine Allergy extreme Verified 07/12/24 11:17 high fever zolpidem Allergy Anaphylaxis Verified 07/12/24 11:17 [facility] Medical History Medical History Hypertension Atrial fibrillation Asthma Social History Social History Smoking Status: Never smoker If you are a former smoker, when did you quit? (Date/Year): 50 yrs ago Do you dip or chew tobacco?: No Living arrangement: At home Living Condition: With spouse/s.o. Relationship: Home Mobility Equipment: Wheeled walker Do you feel safe in your home environment?: Yes Suffered physical, verbal, emotional, or financial abuse?: No History of Abuse: No ETOH Use: Frequency: Occasional POLST Patient has POLST: No Exam Constitutional normal general appearance and no apparent distress HENMT normocephalic and head/scalp atraumatic moist mucous membranes Neck/C-Spine visual inspection normal Respiratory breath sounds equal bilaterally, normal respiratory effort and clear to auscultation bilaterally Cardiovascular normal heart rate noted and regular rhythm noted Gastrointestinal abdomen normal to inspection, abdomen soft to palpation, nontender to palpation and nondistended Genitourinary no CVA tenderness Back/Pelvis no thoracic spine tenderness and no lumbar spine tenderness Extremities no deformity no edema Neurology speech normal Psychiatry mental status grossly normal and oriented x3 Skin skin color normal Results Vitals Vitals: Vital Signs - 24 hr 07/12/24 10:50 Temperature 36.7 C Pulse Rate 82 Respiratory Rate 17 Blood Pressure 118/81 O2 Saturation 98 O2 Source Room air Pain Intensity 0 Oxygen O2 Source Room air EKG (time done) 1339: EKG releavant findings:: EKG personally interpreted by author of this note. Relevant findings are: Rate: Other (62 bpm. Sinus rhythm. Significant artifact limits interpretation. No EKG changes of hyperkalemia. No STEMI. Left axis deviation.) Labs Labs: Laboratory Tests 07/12/24 07/12/24 11:29 11:43 WBC 8.2 RBC 4.47 L Hgb 14.0 Hct 42.3 MCV 94.6 H MCH 31.3 H MCHC 33.1 RDW 13.6 Plt Count 225 MPV 9.7 Neut # (Auto) 5.9 Lymph # (Auto) 1.5 [place] # (Auto) 0.5 Eos # (Auto) 0.3 Baso # (Auto) 0.1 Absolute Nucleated RBC 0.00 Nucleated RBC % 0.0 Sodium 138 Potassium 5.7 H Chloride 105 Carbon Dioxide 26 Anion Gap 7.0 BUN 48 H Creatinine 2.6 H Estimated GFR (MDRD) 24 L Glucose 123 H Calcium 10.3 Total Bilirubin 0.9 AST 14 ALT 14 Alkaline Phosphatase 57 Total Protein 6.6 Albumin 3.9 Globulin 2.7 Albumin/Globulin Ratio 1.4 Lipase 60 Urine Color YELLOW Urine Clarity CLEAR Urine pH 5.5 Ur Specific [place] 1.020 Urine Protein NEGATIVE Urine Glucose (UA) NEGATIVE Urine Ketones NEGATIVE Urine Occult Blood NEGATIVE Urine Nitrite NEGATIVE Urine Bilirubin NEGATIVE Urine Urobilinogen 0.2 (NORMAL) Ur Leukocyte Esterase NEGATIVE Ur Microscopic Review NOT INDICATED Urine Culture Comments NOT INDICATED PD Medical Decision Making ED course Complexity details: reviewed results, considered differential and d/w patient ED course: Patient with continued elevated creatinine and mild hyperkalemia. No acute EKG changes. Given Lokelma, IV fluids. Likely that the Bactrim is causing the recent increase in creatinine. Given IV fluids. Have a mild urinary retention, CT scan does not show any hydronephrosis or obstruction. Given that this is the second visit in 2 days for the same complaint and continued elevated potassium and creatinine, we will place the patient in observation to ensure that his labs improve overnight with treatment as expected. Discussed the case with the hospitalist who accepts This document was made in part using voice recognition software. While efforts are made to proofread this document, sound alike and grammatical errors may occur. Discharge Plan Discharge Patient Disposition: ED Place in Observation Condition: Good Clinical Impression: Acute kidney injury, Acute hyperkalemia Prescriptions: No Action sulfamethoxazole-trimethoprim [Bactrim DS] 800-160 mg tablet 1 tab PO BID 10 Days Qty: 20 0RF metformin 500 mg tablet 1,000 mg PO BID Patient Comments: 1000 in the am, 1000 in the evening albuterol sulfate [Ventolin HFA] 60 PUFFS/8 GM HFA aerosol inhaler 2 puff inhalation Q4H PRN (Reason: Wheezing) Qty: 1 0RF Rx Instructions: DISPENSE WITH SPACER lisinopril 5 MG tablet 40 mg PO DAILY cholecalciferol (vitamin D3) [Vitamin D3] 2,000 UNIT capsule 2,000 unit PO DAILY apixaban [Eliquis] 5 MG tablet 5 mg PO BID furosemide 20 MG tablet 20 mg PO DAILY metoprolol succinate 50 MG tablet extended release 24 hr 50 mg PO DAILY magnesium citrate 100 MG capsule 100 mg PO DAILY atorvastatin 40 MG tablet 40 mg PO DAILY potassium citrate 10 MEQ tablet extended release 5 meq PO DAILY aspirin [St Dash Aspirin] 81 MG tablet,chewable 81 mg PO DAILY doxycycline hyclate 100 MG tablet 100 mg PO QD insulin glargine [Lantus Solostar U-100 Insulin] 100 UNIT/ML insulin pen 22 unit subcut HS omeprazole magnesium 20 MG capsule,delayed release(DR/EC) 20 mg PO DAILY fluticasone propion-salmeterol [Advair Diskus] 1 EACH blister with device 1 puff IH BID lorazepam 0.5 MG tablet 0.5 mg PO BID PRN (Reason: Anxiety) prednisone [Corine] 5 MG tablet,delayed release (DR/EC) 5 mg PO DAILY Desitin 40 % paste 1 applic topical TID Qty: 113 2RF Rx Instructions: apply to buttocks insulin glargine-yfgn [Semglee(insulin glarg-yfgn)Pen] 100 unit/mL (3 mL) insulin pen 15 unit subcut QPM spironolactone 25 mg tablet 25 mg PO QDAY nitroglycerin 0.4 mg tablet, sublingual 0.4 mg sublingual Q5M PRN Rx Instructions: do not exceed 3 doses per episode terbinafine HCl [Jock Itch (terbinafine)] 1 % cream 1 applic topical BID Qty: 30 2RF fluconazole [Diflucan] 200 mg tablet 200 mg PO .3 times weekly Qty: 18 0RF Interventions: ED Admission Assessment Last Done: 07/12/24 14:23 Print Language: Chinese Stand Alone Forms: PCP List
--- NOTE | 2024-07-12 12:58 | CT Report ---
PROCEDURE: CT Abdomen/Pelvis WO INDICATIONS: acute kidney injury TECHNIQUE: A CT scan of the abdomen and pelvis was performed without the use of intravenous contrast. Images we re recorded and evaluated at appropriate window settings. Reformats: coronal and sagittal. For radiat ion dose reduction, the following was used: automated exposure control, adjustment of mA and/or kV ac cording to patient size. COMPARISON: None. FINDINGS: Image quality: Diagnostic. Lower chest: Cardiomegaly. Juxtapleural nodules with smooth margins, favoring benign intrapulmonary l ymph nodes. Liver: No contour-deforming mass. Gallbladder: Surgically absent. Biliary tree: No intrahepatic or extrahepatic dilation, accounting for age. Spleen: No splenomegaly. Pancreas: No pancreatic ductal dilation. Adrenals: No adrenal nodule. Kidneys and ureters: No hydronephrosis. Bilateral renal cystic lesions, which cannot be characterized on this noncontrast examination. Stomach, bowel and peritoneum: No gastric or small bowel dilation. No abnormal wall thickening. No pa thologic free fluid. Diverticulosis without evidence of diverticulitis. Normal appendix. Lymph nodes: No central or retroperitoneal adenopathy. Vessels: No infrarenal aortic aneurysm. Reproductive organs: Prostatomegaly. Bladder: Bladder wall thickness is normal, accounting for underdistention. No calcified bladder stone s. Pelvic lymph nodes: No adenopathy by size criteria. Bones: No aggressive osseous abnormality. Other: Tiny inguinal hernias containing fat. Diastases recti. IMPRESSION: No hydronephrosis or obstructing renal stone. Colonic diverticulosis without evidence of diverticulitis. Reviewed by: Meir Gonzalez MD on 07/12/2024 12:56 PM [facility] Approved by: Meir Gonzalez MD on 07/12/2024 12:56 PM PST Station ID: [id number]
[2024-07-12] MEDS: SODIUM ZIRCONIUM CYCLOSILICATE 5 GM PACKET PO STA (13:21)
[2024-07-12] MEDS: SODIUM CHLORIDE 0.9% 1,000 ML IV STA ×3 (13:21→13:30)
--- NOTE | 2024-07-12 13:52 | HISTORY & PHYSICAL EXAMINATION ---
Chief Complaint Chief Complaint Chief Complaint: Elevated creatinine and potassium, per urgent care History of Present Illness History Obtained From Records Reviewed: Yes History obtained from: Patient and patient's at bedside Exam Limitations: None History of Present Illness HPI Comment/Other: Patient is a 78-year-old male with a history of insulin-dependent diabetes mellitus, recurrent candidal rash on buttocks, asthma on daily prednisone, atrial fibrillation on Eliquis who presents after being called by an urgent care provider and being told he has a high creatinine and potassium. On 06/06, patient went to an urgent care facility for his rash which had become intensely erythematous, as well as itchy. He was diagnosed with tinea cruris, and given prescription for terbinafine and Diflucan. This improved. On 07/08, he went back to this urgent care facility. They did routine lab testing, and he was found to have an elevated potassium and creatinine. It was 6.2 initially; after hyperkalemia cocktail, and IV fluids, decreased to 5.6, and then decreased further to 5.2, and then was discharged from the ER. Yesterday, he went back to urgent care for further follow-up on his rash. He was given Bactrim for this rash. They also kwesi lab work again, and he was noted to be hyperkalemic again, now with a potassium of 5.7. His creatinine was also found to be elevated to 2.6; his baseline as of 04/2023 was normal at 1.1. Patient is overall asymptomatic. He denies any urinary symptoms, including urinary frequency, dysuria, feeling of incomplete emptying, incontinence. Patient is at bedside, and corroborates the above story. Some older notes were reviewed and it mentioned that he had an enlarged prostate, and did have ESBL E. coli, as well as recurrent UTIs, and he was supposed to follow-up with urology, but this has not happened yet. He is eating and drinking well, and states that he has had adequate fluid intake. His medication list was also reviewedhe has a potassium supplement, lisinopril, as well as his Bactrim currently on it. Meds/Allgy Home Medications Ambulatory Orders Medication Instructions Recorded Confirmed albuterol sulfate 90 mcg/actuation 2 puff inhalation Q4H PRN Wheezing 01/10/14 07/05/24 aerosol inhaler (Ventolin HFA) ##1 cholecalciferol (vitamin D3) 50 2,000 unit PO DAILY 01/23/18 07/05/24 mcg (2,000 unit) capsule (Vitamin D3) lisinopril 5 mg tablet 40 mg PO DAILY 01/23/18 07/05/24 apixaban 5 mg tablet (Eliquis) 5 mg PO BID 07/21/20 07/05/24 furosemide 20 mg tablet 20 mg PO DAILY 01/01/21 07/05/24 magnesium citrate 100 mg capsule 100 mg PO DAILY 09/06/21 07/05/24 metoprolol succinate 50 mg 50 mg PO DAILY 09/06/21 07/05/24 tablet,extended release 24 hr aspirin 81 mg chewable tablet (St 81 mg PO DAILY 03/14/23 07/05/24 Dash Aspirin) atorvastatin 40 mg tablet 40 mg PO DAILY 03/14/23 07/05/24 doxycycline hyclate 100 mg tablet 100 mg PO QD 03/14/23 07/05/24 insulin glargine 100 unit/mL (3 22 unit subcut HS 03/14/23 07/05/24 mL) subcutaneous pen (Lantus Solostar U-100 Insulin) omeprazole magnesium 20 mg 20 mg PO DAILY 03/14/23 07/05/24 capsule,delayed release potassium citrate 10 mEq (1,080 5 meq PO DAILY 03/14/23 07/05/24 mg) tablet,extended release fluticasone 250 mcg-salmeterol 50 1 puff IH BID 04/11/23 07/05/24 mcg/dose blistr powdr for inhalation (Advair Diskus) lorazepam 0.5 mg tablet 0.5 mg PO BID PRN Anxiety 04/11/23 07/05/24 prednisone 5 mg tablet,delayed 5 mg PO DAILY 04/11/23 07/05/24 release (Corine) fluconazole 200 mg tablet 200 mg PO .3 times weekly #18 tabs 06/06/24 07/05/24 (Diflucan) insulin glargine-yfgn 100 unit/mL 15 unit subcut QPM 06/06/24 07/05/24 (3 mL) subcutaneous pen (Semglee (insulin glargine-yfgn) Pen) nitroglycerin 0.4 mg sublingual 0.4 mg sublingual Q5M PRN 06/06/24 07/05/24 tablet spironolactone 25 mg tablet 25 mg PO QDAY 06/06/24 07/05/24 terbinafine HCl 1 % topical cream 1 applic topical BID #30 grams 06/06/24 07/05/24 (Jock Itch (terbinafine)) metformin 500 mg tablet 1,000 mg PO BID 07/05/24 07/05/24 zinc oxide-cod liver oil 40 % 1 applic topical TID #113 grams 07/05/24 07/05/24 topical paste (Desitin) sulfamethoxazole 800 1 tab PO BID 10 days #20 tabs 07/10/24 mg-trimethoprim 160 mg tablet (Bactrim DS) Allergies Allergies Allergy/AdvReac Type Severity Reaction Status Date / Time licorice Allergy Severe Anaphylaxis Verified 07/12/24 11:17 plague vaccine Allergy extreme Verified 07/12/24 11:17 high fever zolpidem Allergy Anaphylaxis Verified 07/12/24 11:17 [facility] Medical History Medical History Hypertension Atrial fibrillation Asthma Social History Social History Smoking Status: Never smoker If you are a former smoker, when did you quit? (Date/Year): 50 yrs ago Do you dip or chew tobacco?: No Living arrangement: At home Living Condition: With spouse/s.o. Relationship: Home Mobility Equipment: Wheeled walker Do you feel safe in your home environment?: Yes Suffered physical, verbal, emotional, or financial abuse?: No History of Abuse: No ETOH Use: Frequency: Occasional POLST Patient has POLST: No Review of Systems Constitutional Denies: Fatigue, Fever, Chills, Malaise, Weakness or Poor appetite Eyes Denies: Pain, Irritation, Blurry vision, Vision loss, Diplopia or Eye discomfort Ears, nose, mouth, and throat Reports: Neck pain; Denies: Ear pain, Hearing loss, Tinnitus, Nose bleeds, Nasal discharge, Mouth lesions or Bleeding gums Cardiovascular Denies: Irregular heart rate, chest pain, palpitations, edema, Syncope or shortness of breath with exertion Respiratory Denies: Shortness of breath, Cough, Sputum production or Wheezing Gastrointestinal Denies: Abdominal pain, Abdominal distention, Nausea, Vomiting, Heartburn, Diarrhea or Constipation Genitourinary Denies: Painful urination, Flank pain, Incontinence, Urinary frequency or Urinary urgency Musculoskeletal Reports: Neck pain and Limited range of motion; Denies: Back pain, Extremity pain, Extremity swelling or Joint pain Integumentary/Breast Reports: Rash, Itching and Redness; Denies: Dryness or Skin pain Neurological Reports: Weakness in extremities; Denies: Headache, General weakness, Abnormal gait or Dizziness Psychiatric Denies: Depression, Anxiety or Mood swings Endocrine Denies: Excessive urination, Excessive thirst or Fatigue Hematologic/Lymphatic Denies: Anemia, Easy bruising or Easy bleeding Allergic/Immunologic Denies: Hives, Tongue swelling, Facial swelling or Wheezing Prior Level of Functionality: Uses wheelchair and walker at home, assists him with ADLs. Exam Constitutional normal general appearance, no apparent distress, average body habitus and alert HENMT normocephalic, head/scalp atraumatic, hearing grossly abnormal (diminished hearing) and oral mucous membranes normal Eyes PERRL, EOMs intact bilaterally and conjunctivae normal Neck/C-Spine visual inspection normal, trachea midline and cervical spine nontender Chest inspection of chest normal and palpation of chest normal Respiratory breath sounds equal bilaterally, normal respiratory effort, clear to auscultation bilaterally, no wheezes and no rales Cardiovascular normal heart rate noted, rhythm abnormal (irregular), no murmur and no JVD Gastrointestinal abdomen normal to inspection, abdomen soft to palpation, nontender to palpation and nontender to percussion Genitourinary no CVA tenderness and bladder normal to palpation Back/Pelvis spine normal to inspection, no thoracic spine tenderness and no lumbar spine tenderness Extremities normal to palpation, no tenderness and full ROM Neurology no movement abnormality noted and no focal motor deficit noted Psychiatry mental status grossly normal, oriented x3, thought process normal and cooperative Skin rash noted (rash on buttocks, erythema noted; compared with prior pictures,looks better) Conclusion/Plan Problem List (1) Acute kidney injury: Plan: Patient with acute kidney injury, likely intrinsic due to Bactrim use, with Lasix, spirnolactone, etc. Received bolus of IV fluids. Continue regular diet, encourage p.o. intake. Hold Lasix, spironolactone at this time. Continue bladder scans every 6 hours to assess for retention. CT abdomen/pelvis noted, no hydronephrosis noted. Continue to trend creatinine daily. Continue strict ins and outs. (2) Acute hyperkalemia: Plan: Likely related to acute kidney injury. Continue to trend. Received a hyperkalemia cocktail, Lokelma, insulin/D50, albuterol. Repeat potassium pending around 4 PM. Will address as necessary. Hold spironolactone, lisinopril, potassium supplementation. (3) Mobility impaired: Plan: Patient impaired due to chronic weakness. Uses diapers, is essentially bedbound. Continue physical activity, up to bed with meals as tolerated. (4) Rash: Plan: Diaper rash, fungal rash noted on buttocks. Compared to pictures has previously over the last 2 months, it is much improved. Continue terbinafine, Diflucan at this time. Continue frequent repositioning. (5) Stage 1 decubitus ulcer: Plan: Patient is essentially bedbound; this is likely from result of his immobility, as well as worsening candidal rash on back. Continue frequent repositioning. Qualifiers: Pressure injury location: buttock Laterality: unspecified laterality Q ualified Code(s): L89.301 - Pressure ulcer of unspecified buttock, stage 1 (6) Type 2 diabetes mellitus: Plan: Continue home long-acting insulin 14 units at night. Continue sliding scale insulin, hypoglycemic protocol while here. Qualifiers: Diabetes mellitus long term care phlebotomist insulin use: with long term care phlebotomist use Diabetes mellitus complication status: without complication Qualified Code(s): E11.9 - Type 2 diabetes mellitus without complications; Z79.4 - residential (current) use of insulin (7) BPH (benign prostatic hyperplasia): Plan: Continue advised to follow-up with urology outpatient. Qualifiers: Lower urinary tract symptom detail: unspecified Lower urinary tract symptom presence: symptoms present Qualified Code(s): N40.1 - Benign prostatic hyperplasia with lower urinary tract symptoms (8) Atrial fibrillation: Plan: Continue Eliquis, metoprolol. Hold parameters placed. Qualifiers: Atrial fibrillation type: longstanding persistent Qualified Code(s): I 48.11 - Longstanding persistent atrial fibrillation (9) Hypertension: Plan: Hold AMANDA inhibitor at this time. Continue metoprolol. Qualifiers: Hypertension type: primary hypertension Qualified Code(s): I10 - Essential (primary) hypertension (10) Asthma: Plan: Continue prednisone (takes 5 mg daily), Duonebs as needed. Lab Results Lab results reviewed: Yes 07/12/24 11:29 07/12/24 11:29 Diagnostic Imaging Results Diagnostic Imaging Results: positive Final report reviewed EKG Results EKG Findings: Pending completion. Core Measures Anticipated LOS I expect patient to be DC'd or transferred within 96 hours.: Yes DVT/VTE - Prophylaxis VTE/DVT Device ordered at admit?: Yes VTE/DVT Prophylaxis med ordered at admit?: Yes Stroke - Rehab Assessment Rehab services assessment to be ordered?: No Not Ordered - Medical Reason: Not indicated AMI - Statin at Admit Aspirin Prescribed on Admit: Yes
[2024-07-12] MEDS ORDERED: SODIUM CHLORIDE FLUSH 0.9% 10 ML SYRINGE IVP PRN (15:07)
[2024-07-12] MEDS ORDERED: ACETAMINOPHEN 325 MG TABLET PO PRN (15:07)
[2024-07-12] MEDS ORDERED: ALBUTEROL NEB 2.5 MG/3 ML INH PRN (15:50)
[2024-07-12] MEDS: SODIUM CHLORIDE FLUSH 0.9% 10 ML SYRINGE IVP SCH (16:13)
--- NOTE | 2024-07-12 16:14 | PHARMACY PROGRESS NOTE ---
Best Possible Medication History Admit Date and Time: 07/12/24 [id number] Home Medications Medication Instructions Recorded Confirmed Type albuterol sulfate 90 mcg/actuation 2 puff inhalation Q4H PRN Wheezing 01/10/14 07/12/24 Rx aerosol inhaler (Ventolin HFA) ##1 apixaban 5 mg tablet (Eliquis) 5 mg PO BID 07/21/20 07/12/24 History furosemide 20 mg tablet 20 mg PO BID 01/01/21 07/12/24 History metoprolol succinate 50 mg 50 mg PO DAILY 09/06/21 07/12/24 History tablet,extended release 24 hr atorvastatin 40 mg tablet 40 mg PO DAILY 03/14/23 07/12/24 History doxycycline hyclate 100 mg tablet 100 mg PO DAILY 03/14/23 07/12/24 History omeprazole magnesium 20 mg 20 mg PO DAILY 03/14/23 07/12/24 History capsule,delayed release fluticasone 250 mcg-salmeterol 50 1 puff IH DAILY 04/11/23 07/12/24 History mcg/dose blistr powdr for inhalation (Advair Diskus) prednisone 5 mg tablet,delayed 5 mg PO QPM 04/11/23 07/12/24 History release (Corine) fluconazole 200 mg tablet 200 mg PO .3 times weekly #18 tabs 06/06/24 07/12/24 Rx (Diflucan) insulin glargine-yfgn 100 unit/mL 14 unit subcut QPM 06/06/24 07/12/24 History (3 mL) subcutaneous pen (Semglee (insulin glargine-yfgn) Pen) nitroglycerin 0.4 mg sublingual 0.4 mg sublingual Q5M PRN chest 06/06/24 History tablet pain terbinafine HCl 1 % topical cream 1 applic topical BID #30 grams 06/06/24 07/12/24 Rx (Jock Itch (terbinafine)) metformin 500 mg tablet 1,000 mg PO BID 07/05/24 07/12/24 History zinc oxide-cod liver oil 40 % 1 applic topical TID #113 grams 07/05/24 07/12/24 Rx topical paste (Desitin) cephalexin 500 mg capsule 500 mg PO TID 12/06/24 12/06/24 History cholecalciferol (vitamin D3) 25 1,000 unit PO BID 07/12/24 07/12/24 History mcg (1,000 unit) capsule magnesium oxide 400 mg PO DAILY 07/12/24 07/12/24 History Processed by: Pharmacy Medications reviewed in ED?: No Medication History completed: Yes Patient Interview: Completed Secondary Source(s): Written medication list, Spouse/Significant other, Other family member, Physician records, Pharmacy records, Insurance records and Previous admit records [facility] Statement: As the person ultimately responsible for medication therapy, providers are able to order a medication from an existing home medication list in [facility] via the "Reconcile Routine" prior to Confirmation of that medication by technical support engineer. Such practice is discouraged except when the physician, in their clinical judgment, deems that a medical need exists for a medication without regard to previous use.
[2024-07-12 16:17] LABS: CALCIUM 9.8 mg/dL (8.5-10.3); CREATININE 2.3 mg/dL (0.6-1.3); POTASSIUM 4.9 mmol/L (3.5-4.5)
[2024-07-12] MEDS: INSULIN LISPRO 300 UNIT/3 ML PEN SUBQ SCH (17:16)
[2024-07-12] MEDS: COD LIVER OIL/ZINC OXIDE 113 GM TUBE TOP SCH (19:56)
[2024-07-12] MEDS: APIXABAN 2.5 MG TABLET PO SCH (20:12)
[2024-07-12] MEDS: INSULIN GLARGINE-YFGN 300 UNIT/3 ML PEN SUBQ SCH (20:12)
[2024-07-12] MEDS: TERBINAFINE 1% TOP SCH (20:17)
[2024-07-13] MEDS: PANTOPRAZOLE 40 MG TABLET PO SCH (06:06)
[2024-07-13 06:45] LABS: HCT - HEMATOCRIT 39.1 % (42.0-52.0); HGB - HEMOGLOBIN 12.9 g/dL (14.0-18.0); MEAN CORPUSCULAR HEMOGLOBIN 31.1 pg (27.0-31.0); MEAN CORPUSCULAR VOLUME 94.2 fL (80.0-94.0); MEAN PLATELET VOLUME 10.3 fL (7.4-11.4); RED BLOOD COUNT 4.15 10^6/uL (4.70-6.10); RED CELL DISTRIBUTION WIDTH 13.5 % (12.0-15.0); WHITE BLOOD COUNT 8.6 x10^3/uL (4.8-10.8)
[2024-07-13 07:04] LABS: CALCIUM 9.5 mg/dL (8.5-10.3); CREATININE 2.1 mg/dL (0.6-1.3); MAGNESIUM 1.2 mg/dL (1.7-2.3); POTASSIUM 4.5 mmol/L (3.5-4.5)
[2024-07-13] MEDS: CHOLECALCIFEROL 25 MCG TABLET PO SCH (08:15)
[2024-07-13] MEDS: ASPIRIN CHEW 81 MG TABLET PO SCH (08:15)
[2024-07-13] MEDS: predniSONE 5 MG TABLET PO SCH (08:15)
[2024-07-13] MEDS: ATORVASTATIN 40 MG TABLET PO SCH (08:15)
[2024-07-13] MEDS: METOPROLOL SUCCINATE 50 MG TABLET PO SCH (08:16)
--- NOTE | 2024-07-13 09:01 | Discharge Summary ---
"Discharge Summary Admit Date: 07/12/24 Discharge Date: 07/13/24 Discharging Provider: Dr. Rich Aranda Code Status: Attempt Resuscitation DIAGNOSES Admission Diagnoses: Acute kidney injury Acute hyperkalemia Mobility impaired Rash Stage I decubitus ulcer Type 2 diabetes mellitus BPH Atrial fibrillation Hypertension Asthma Discharge Diagnoses with Status of Each Condition: Acute kidney injurycreatinine this morning is 2.1. He presented with a creatinine of 2.6. Baseline is 1.1. This was likely due to nephrotoxic medication overuse. Patient advised to continue adequate p.o. intake, good fluid intake at home. Advised to hold his Lasix, spironolactone, Bactrim, potassium supplement on discharge. Advised to follow-up with his primary care physician in a week and make sure that his creatinine continues to downtrend. This was explained to him and his , who both demonstrated understanding. Acute hyperkalemiaresolved. Likely due to acute kidney injury as described above. Hold potassium supplementation in the outpatient setting. Mobility impairedpatient has chronic weakness, uses diapers. Continue physical activity as tolerated. Tinea crurispatient has a diaper rash on his buttocks. It is continuing to improve. Continue terbinafine, Diflucan at this time. Continue frequent repositioning. Stage I decubitus ulcerpatient is essentially bedbound, likely from mobility issues. Continue frequent repositioning at home. Type 2 diabetes mellituscontinue home long-acting insulin 14 units at night, sliding scale during the day, metformin as well. Explained to and patient that adequate control of the sugars will help with his candidal rash as well. BPHcontinue to follow-up with urology outpatient. Atrial fibrillationcontinue Eliquis, Toprol. Hypertensioncontinue to hold lisinopril on discharge, continue metoprolol. Asthmacontinue daily prednisone, DuoNebs as needed. HPI History of Present Illness: Patient is a 78-year-old male with a history of insulin-dependent diabetes mellitus, recurrent candidal rash on buttocks, asthma on daily prednisone, atrial fibrillation on Eliquis who presents after being called by an urgent care provider and being told he has a high creatinine and potassium. On 06/06, patient went to an urgent care facility for his rash which had become intensely erythematous, as well as itchy. He was diagnosed with tinea cruris, and given prescription for terbinafine and Diflucan. This improved. On 07/08, he went back to this urgent care facility. They did routine lab testing, and he was found to have an elevated potassium and creatinine. It was 6.2 initially; after hyperkalemia cocktail, and IV fluids, decreased to 5.6, and then decreased further to 5.2, and then was discharged from the ER. Yesterday, he went back to urgent care for further follow-up on his rash. He was given Bactrim for this rash. They also kwesi lab work again, and he was noted to be hyperkalemic again, now with a potassium of 5.7. His creatinine was also found to be elevated to 2.6; his baseline as of 04/2023 was normal at 1.1. Patient is overall asymptomatic. He denies any urinary symptoms, including urinary frequency, dysuria, feeling of incomplete emptying, incontinence. Patient is at bedside, and corroborates the above story. Some older notes were reviewed and it mentioned that he had an enlarged prostate, and did have ESBL E. coli, as well as recurrent UTIs, and he was supposed to follow-up with urology, but this has not happened yet. He is eating and drinking well, and states that he has had adequate fluid intake. His medication list was also reviewedhe has a potassium supplement, lisinopril, as well as his Bactrim currently on it. CONSULTS | PROCEDURES Procedures: Abdomen/pelvis CT HOSPITAL COURSE Hospital Course: Patient is a 78-year-old male with a history of insulin-dependent diabetes mellitus, recurrent candidal rash on buttocks, atrial fibrillation who presents after an urgent care provider called him and told him that he had a high creatinine and potassium. Of note, he was just here few days ago for this, this resolved with IV fluids, and then he was sent home. After being discharged from emergency room, he did go to the urgent care for this worsening rash. He was prescribed Bactrim. They kwesi lab work again, and he was noted to have a hyperkalemia of 5.7, and and acute kidney injury with creatinine of 2.6. His baseline is around 1. He was asymptomatic during his entire staydenies any urinary symptoms, including frequency, dysuria incontinence feelings of incomplete emptying, retention. He states he is eating and drinking well. He was given some IV fluids, and his lisinopril, spironolactone, Lasix, potassium supplement, Bactrim were all held. He was advised to continue to hold all of these medications in the outpatient setting for at least 1 to 2 weeks, and then follow-up with his primary care provider, have his potassium and creatinine rechecked, and restart upon direction from his primary care provider. This was also explained to his , his daughter, his son-in-law, who are all present at bedside, they demonstrate understanding, and as such, he was deemed stable for discharge home. ALLERGIES Allergies Allergy/AdvReac Type Severity Reaction Status Date / Time licorice Allergy Severe Anaphylaxis Verified 07/12/24 11:17 plague vaccine Allergy extreme Verified 07/12/24 11:17 high fever zolpidem Allergy Anaphylaxis Verified 07/12/24 11:17 MEDICATIONS Ambulatory Orders Medication Instructions Recorded Confirmed albuterol sulfate 90 mcg/actuation 2 puff inhalation Q4H PRN Wheezing 01/10/14 07/12/24 aerosol inhaler (Ventolin HFA) ##1 apixaban 5 mg tablet (Eliquis) 5 mg PO BID 07/21/20 07/12/24 furosemide 20 mg tablet 20 mg PO BID 01/01/21 07/12/24 metoprolol succinate 50 mg 50 mg PO DAILY 09/06/21 07/12/24 tablet,extended release 24 hr atorvastatin 40 mg tablet 40 mg PO DAILY 03/14/23 07/12/24 omeprazole magnesium 20 mg 20 mg PO DAILY 03/14/23 07/12/24 capsule,delayed release fluticasone 250 mcg-salmeterol 50 1 puff IH DAILY 04/11/23 07/12/24 mcg/dose blistr powdr for inhalation (Advair Diskus) prednisone 5 mg tablet,delayed 5 mg PO QPM 04/11/23 07/12/24 release (Corine) fluconazole 200 mg tablet 200 mg PO .3 times weekly #18 tabs 06/06/24 07/12/24 (Diflucan) insulin glargine-yfgn 100 unit/mL 14 unit subcut QPM 06/06/24 07/12/24 (3 mL) subcutaneous pen (Semglee (insulin glargine-yfgn) Pen) terbinafine HCl 1 % topical cream 1 applic topical BID #30 grams 06/06/24 07/12/24 (Jock Itch (terbinafine)) metformin 500 mg tablet 1,000 mg PO BID 07/05/24 07/12/24 zinc oxide-cod liver oil 40 % 1 applic topical TID #113 grams 07/05/24 07/12/24 topical paste (Desitin) cholecalciferol (vitamin D3) 25 1,000 unit PO BID 07/12/24 07/12/24 mcg (1,000 unit) capsule magnesium oxide 400 mg PO DAILY 07/12/24 07/12/24 magnesium oxide 400 mg (241.3 mg 400 mg PO DAILY 30 days #30 tabs 07/13/24 magnesium) tablet PHYSICAL EXAM AT DISCHARGE General Appearance: positive No acute distress and Alert; negative Anxious Eyes Bilateral: positive Normal inspection, PERRL and EOMI ENT: positive ENT inspection nml, Pharynx nml and No signs of dehydration Neck: positive Nml inspection, Thyroid nml and No JVD Respiratory: positive Chest non-tender, No respiratory distress and Breath sounds nml; negative Wheezes, Rales or Rhonchi Cardiovascular: positive No gallop and Irregularly irregular; negative Extrasystoles, Tachycardia or Friction rub Peripheral Pulses: positive 2+ Abdomen: positive Non-tender, No organomegaly and Nml bowel sounds; negative Tenderness, Guarding or Rebound Back: positive Nml inspection; negative CVA tenderness (R) or CVA tenderness (L) Skin: positive Color nml and Skin rash (erythema noted on buttocks; improved from pictures shown by ) Extremities: positive Non-tender, Full ROM and No pedal edema Neurologic/Psychiatric: positive Oriented x3, Motor nml and Mood/affect nml LABS 07/13/24 06:07 07/13/24 06:07 DIAGNOSTIC IMAGING Diagnostic Imaging Results: Final report reviewed QUALITY (Female Hip Fx Only) Was patient sent home on osteoporosis medication?: No FOLLOW UP Follow Up: Follow up with primary care provider. TIME SPENT Time Spent in Discharge (Minutes): 30 Discharge Plan Discharge Patient Disposition: Home, Self Care Condition: Good Prescriptions: New magnesium oxide 400 mg (241.3 mg magnesium) Tablet 400 mg PO DAILY 30 Days Qty: 30 0RF Continued metformin 500 mg tablet 1,000 mg PO BID Patient Comments: 1000 in the am, 1000 in the evening albuterol sulfate [Ventolin HFA] 60 PUFFS/8 GM HFA aerosol inhaler 2 puff inhalation Q4H PRN (Reason: Wheezing) Qty: 1 0RF Rx Instructions: DISPENSE WITH SPACER Eliquis 5 MG tablet 5 mg PO BID metoprolol succinate 50 MG tablet extended release 24 hr 50 mg PO DAILY atorvastatin 40 MG tablet 40 mg PO DAILY omeprazole magnesium 20 MG capsule,delayed release(DR/EC) 20 mg PO DAILY fluticasone propion-salmeterol [Advair Diskus] 1 EACH blister with device 1 puff IH DAILY Corine 5 MG tablet,delayed release (DR/EC) 5 mg PO QPM cholecalciferol (vitamin D3) 25 mcg (1,000 unit) capsule 1,000 unit PO BID magnesium oxide 400 mg magnesium capsule 400 mg PO DAILY Desitin 40 % paste 1 applic topical TID Qty: 113 2RF Rx Instructions: apply to buttocks insulin glargine-yfgn [Semglee(insulin glarg-yfgn)Pen] 100 unit/mL (3 mL) insulin pen 14 unit subcut QPM terbinafine HCl [Jock Itch (terbinafine)] 1 % cream 1 applic topical BID Qty: 30 2RF fluconazole [Diflucan] 200 mg tablet 200 mg PO .3 times weekly Qty: 18 0RF Held furosemide 20 MG tablet 20 mg PO BID Hold Instructions: Resume on 07/27/24. Resume when PCP rechecks kidney levels and states it's okay to do so. Discontinued doxycycline hyclate 100 MG tablet 100 mg PO DAILY cephalexin 500 mg capsule 500 mg PO TID Patient Comments: take 1 capsule by mouth three times a day for 7 days, BEGAN 07/05/24 nitroglycerin 0.4 mg tablet, sublingual 0.4 mg sublingual Q5M PRN (Reason: chest pain) Rx Instructions: do not exceed 3 doses per episode Diet: Diabetic Health Concerns: You came in because you were sent in from your urgent care provider for having high potassium and a high creatinine. The high potassium was likely a result of your high creatinine, which is a measure of a kidney injury. You likely had a kidney injury due to multiple medications that work on your kidneys. We gave you some IV fluids, held these medications while you are here. Your potassium levels are now normal. Your kidney numbers are getting better, but they are not back down to your baseline yet. I would advise that you hold the following medications until you get your numbers rechecked and follow-up with your primary care provider, who will tell you which ones to restart. Please hold your Lasix, spironolactone, lisinopril, Bactrim (sulfamethoxazole and trimethoprim), and your potassium supplement. Please have your primary care physician recheck a BMP (basic metabolic panel, which includes creatinine and potassium). We are glad you are feeling better, thank you for allowing us to take care of you. Print Language: [place] Patient Instructions: Injury Acute Kidney Dc, Hyperkalemia Dc Stand Alone Forms: PCP List Follow-up Care: ROBERTA DE LA ROSA ARNP [Physician No Access] -"
[2024-07-13] MEDS: FORMOTEROL FUMARATE NEB 20 MCG/2 ML INH SCH (09:40)
[2024-07-13] MEDS: BUDESONIDE 0.5 MG/2 ML NEB INH SCH (09:41)
[2024-07-13 10:40] VITALS: O2SAT 96
[2024-07-13] MEDS: MAGNESIUM OXIDE 400 MG TABLET PO SCH (11:15)
[2024-07-15] MEDS ORDERED: FLUCONAZOLE 100 MG TABLET PO SCH (09:00)
== END 2024-07-13 11:30 | disposition home or self-care (01) ==
LOC: MS2 10:34 → ED 10:34 → MS2 14:30
PROVIDERS: ADMIT Internal Medicine; ATTEND Internal Medicine
DX: J45.909 Unspecified asthma, uncomplicated; Z87.891 Personal history of nicotine dependence; I10 Essential (primary) hypertension; Z79.01 Long term (current) use of anticoagulants; B35.6 Tinea cruris; Z74.01 Bed confinement status; Z79.84 Long term (current) use of oral hypoglycemic drugs; E11.9 Type 2 diabetes mellitus without complications; E87.5 Hyperkalemia; R53.1 Weakness; Z79.4 Long term (current) use of insulin; Z87.440 Personal history of urinary (tract) infections; N17.9 Acute kidney failure, unspecified; N40.0 Benign prostatic hyperplasia without lower urinary tract symptoms; L89.301 Pressure ulcer of unspecified buttock, stage 1; I48.11 Longstanding persistent atrial fibrillation

== ENCOUNTER 2025-01-12 15:06 | Observation (INO) ==
--- NOTE | 2025-01-12 15:23 | ED Physician Documentation ---
History of Present Illness Stated complaint Stated Complaint: WEAKNESS/FAILURE TO THRIVE Chief complaint Chief Complaint: Neuro History obtained from History obtained from: Family Additonal information Additional information: This is AN 79-year-old male who has a history of prior stroke, dementia, COPD, who presents with the family for a month or 2 long history of slow decline to the point where patient's is no longer able to take care of him. She is interested in pursuing hospice care. She states for the last month or so the patient has essentially stopped talking, he has not wanted to eat, barely drinks anything, he will not eat on his own but she has fed him and he will take a few bites and then stop. She estimates over the course the last week he has had a approximately 1 cup of food. He is not able to walk, and she is not able to help him up by herself. She does have family that can help but not all of the time. She is interested in placement and possibly hospice. Patient has not had any fever to her knowledge, no cough or URI type symptoms, has not appeared short of breath, he has not had any vomiting, no constipation, he is incontinent of stool and urine. Review of Systems Status of ROS: unobtainable due to mental status Meds/Allgy Home Medications Ambulatory Orders Medication Instructions Recorded Confirmed albuterol sulfate 90 mcg/actuation 2 puff inhalation Q 4H PRN Wheezing 01/10/14 07/12/24 aerosol inhaler (Ventolin HFA) ##1 apixaban 5 mg tablet (Eliquis) 5 mg PO BID 07/21/20 furosemide 20 mg tablet 20 mg PO BID 01/01/21 Held on 07/13/24. Instructions: Resume on 07/27/24. Resume when PCP rechecks kidney levels and states it's okay to do so. metoprolol succinate 50 mg 50 mg PO DAILY 09/06/2101/28 tablet,extended release 24 hr atorvastatin 40 mg tablet 40 mg PO DAILY 03/14/2301/28 omeprazole magnesium 20 mg 20 mg PO DAILY 03/14/2301/28 capsule,delayed release fluticasone 250 mcg-salmeterol 50 1 puff IH DAILY 12/2707/12/24 mcg/dose blistr powdr for inhalation (Advair Diskus) prednisone 5 mg tablet,delayed 5 mg PO QPM 04/11/23 release (Corine) fluconazole 200 mg tablet 200 mg PO .3 times weekly #1 8 tabs 06/06/24 07/12/24 (Diflucan) insulin glargine-yfgn 100 unit/mL 14 unit subcut QPM 1 07/12/24 (3 mL) subcutaneous pen (Semglee (insulin glargine-yfgn) Pen) terbinafine HCl 1 % topical cream 1 applic topical BID #30 grams 06/06/24 07/12/24 (Jock Itch (terbinafine)) metformin 500 mg tablet 1,000 mg PO BID 07/05/2401/28 zinc oxide-cod liver oil 40 % 1 applic topical TID #11 3 grams 07/05/24 07/12/24 topical paste (Desitin) cholecalciferol (vitamin D3) 25 1,000 unit PO BID 01/2807/12/24 mcg (1,000 unit) capsule magnesium oxide 400 mg PO DAILY 07/12/2401/28 magnesium oxide 400 mg (241.3 mg 400 mg PO DAILY 30 da ys #30 tabs 07/13/24 magnesium) tablet Allergies Allergies Allergy/AdvReac Type Severity Reaction Status Date / Time licorice Allergy Severe Anaphylaxis Verified 01/12/25 15:13 plague vaccine Allergy extreme Verified 01/12/25 15:13 high fever zolpidem Allergy Anaphylaxis Verified 01/12/25 15:13 PFSH Active Problems All Active Problems (Updated 01/12/25 @ 20:25 by Lyndsey Escobar RN) COPD (chronic obstructive pulmonary disease) (Chronic) Hypomagnesemia (Acute) Encephalopathy, metabolic (Acute) Acute cystitis (Acute) Acute kidney injury (Acute) Elevated serum creatinine (Acute) Acute hyperkalemia (Acute) Mobility impaired (Acute) Rash (Acute) Stage 1 decubitus ulcer (Acute) Diabetes (Acute) Jock itch (Acute) History of adenomatous polyp of colon (Acute) Sepsis (Acute) UTI (urinary tract infection) (Acute) Type 2 diabetes mellitus (Acute) BPH (benign prostatic hyperplasia) (Acute) History of Cronin's palsy (Acute) Chronic sinusitis (Acute) Medical History Medical History (Updated 01/12/25 @ 20:25 by Lyndsey Escobar RN) Hypertension Atrial fibrillation Asthma Social History Social History Smoking Status: Former smoker If you are a former smoker, when did you quit? (Date/Year): 1965 Number of Years Smoked: 6 How many cigarettes a day do you smoke? (20 cigarettes=1 Pk): 5 Second hand tobacco smoke exposure: No Do you dip or chew tobacco?: No Do you vape?: No Patient requests smoking cessation consult: No Initiate information on smoking cessation: No Living arrangement: At home Living Condition: With spouse/s.o. Relationship: Spouse Level: Dependent Home Mobility Equipment: Wheelchair Do you feel safe in your home environment?: Yes Suffered physical, verbal, emotional, or financial abuse?: No History of Abuse: No ETOH Use: Frequency: Occasional Substance Use: denies use POLST Patient has POLST: No Exam Exam Vital Signs: Vital Signs x48h Temp Pulse Resp BP Pulse Ox 01/12/25 17:16 55 L 16 125/75 98 01/12/25 15:13 35.9 C L 78 20 122/76 95 Constitutional normal general appearance, no apparent distress, average body habitus and no limitations Sleeping but wakes to voice, answers some simple questions but otherwise not conversant [facility] normocephalic and head/scalp atraumatic Dry mucous membranes Eyes PERRL and conjunctivae normal Respiratory breath sounds equal bilaterally, normal respiratory effort, clear to auscultation bilaterally, no wheezes, no rales and no retractions Cardiovascular normal heart rate noted, regular rhythm noted and peripheral pulses 2+ throughout Gastrointestinal abdomen normal to inspection, abdomen soft to palpation, nontender to palpation, nontender to percussion, nondistended and normoactive bowel sounds Extremities normal to inspection, normal to palpation and no tenderness Neurology Patient is sleeping, wakes to voice and answers some simple questions with short answers. No facial droop, has generalized weakness but no focal weakness. Unable to assess gait as patient does not walk. Skin skin color normal and no rash Results Vitals Vitals: Vital Signs - 24 hr 01/12/25 15:13 01/12/25 17:16 Temperature 35.9 C L Temperature Source Temporal Artery Scan Pulse Rate 78 55 L Respiratory Rate 20 16 Blood Pressure 122/76 125/75 O2 Saturation 95 98 O2 Source Room air Room air Pain Intensity 0 Oxygen O2 Source Room air Labs Labs: Laboratory Tests 01/12/25 01/12/25 15:35 16:20 WBC 10.1 RBC 3.67 L Hgb 12.3 L Hct 35.9 L MCV 97.8 H MCH 33.5 H MCHC 34.3 RDW 14.5 Plt Count 272 MPV 9.7 Neut # (Auto) 7.0 H Lymph # (Auto) 2.1 Mower # (Auto) 0.6 Eos # (Auto) 0.3 Baso # (Auto) 0.1 Absolute Nucleated RBC 0.00 Nucleated RBC % 0.0 Sodium 142 Potassium 3.9 Chloride 107 Carbon Dioxide 30 Anion Gap 5.0 L BUN 35 H Creatinine 2.2 H Estimated GFR (MDRD) 29 L Glucose 83 Calcium 10.7 H Magnesium 0.9 L* Total Bilirubin 2.3 H AST 17 ALT 15 Alkaline Phosphatase 58 Total Protein 5.9 L Albumin 3.6 Globulin 2.3 Albumin/Globulin Ratio 1.6 Lipase 25 Urine Color YELLOW Urine Clarity CLEAR Urine pH 6.0 Ur Specific [place] 1.020 Urine Protein TRACE Urine Glucose (UA) NEGATIVE Urine Ketones NEGATIVE Urine Occult Blood LARGE H Urine Nitrite NEGATIVE Urine Bilirubin NEGATIVE Urine Urobilinogen 0.2 (NORMAL) Ur Leukocyte Esterase SMALL H Urine RBC 11-25 H Urine WBC 11-25 H Ur Squamous Epith Cells RARE Squamous Urine Bacteria Moderate H Ur Microscopic Review INDICATED Urine Culture Comments INDICATED PD Medical Decision Making ED course Complexity details: reviewed results, re-evaluated patient, considered differential, d/w patient and d/w family ED course: 79-year-old male presents with family due to progressive decline over the last couple of months with minimal p.o. intake, generalized weakness and states that she is no longer able to care for him on her own. She would like to consider hospice care. Here, patient appears chronically ill but nontoxic, afebrile and in no acute distress. He is generally weak, minimally communicative, there is concern for possible dehydration, SAE, electrolyte abnormality, urinary tract infection among other differentials. We collected labs which were notable for white blood count of 10, hemoglobin 12.3, hematocrit 35.9, platelets 273, CMP notable for a BUN of 35 and creatinine 2.2 which is fairly similar to prior, calcium 10.7, magnesium 0.9, bilirubin 2.3. Urinalysis suspicious for infection with occult blood, small leuk esterase and 11-25 WBCs moderate bacteria per straight cath sample. A culture was sent and the patient was started on ceftriaxone. He also received IV magnesium replacement and IV fluids. He does appear somewhat more energetic after receiving IV fluids but after conversation with family, they feel he cannot remain safely at home and would like to consider placement and possibly hospice care. I discussed with the hospitalist Dr. Aranda who very kindly agreed to accept this patient for UTI and hypomagnesemia with failure to thrive. Discharge Plan Discharge Patient Disposition: [facility] DC/Xfer Clinical Impression: Encephalopathy, metabolic, Hypomagnesemia Acute cystitis Qualifiers: Hematuria presence: without hematuria Qualified Code(s): N30.00 - Acute cystitis without hematuria Interventions: ED Admission Assessment Last Done: 01/12/25 19:11
--- OUTSIDE RECORDS SUMMARY | 2025-01-12 15:25 | EXTERNAL MEDICAL SUMMARY RPT | Continuity of Care Document ---
Author Organization [facility] Address [address] [address] Phone Problems date description facility 2024-10-23 13:38 Type 2 diabetes mellitus withou t complications [facility] 2024-10-25 11:30 Other specified diso rders of bone density and structure, unspecified site [facility] 2024-10-30 11:24 [facility] 2024-10-31 10:00 Encounter for observ ation for other suspected diseases and conditions ruled [facility] 2024-12-16 12:39 Encounter for observ ation for other suspected diseases and conditions ruled [facility] Social History date description facility
[2025-01-12 15:39] LABS: BASOPHILS # (AUTO) 0.1 10^3/uL (0.0-0.1); BASOPHILS % (AUTO) 0.6 %; EOSINOPHILS # (AUTO) 0.3 10^3/uL (0.0-0.7); EOSINOPHILS % (AUTO) 2.9 %; HCT - HEMATOCRIT 35.9 % (42.0-52.0); HGB - HEMOGLOBIN 12.3 g/dL (14.0-18.0); LYMPHOCYTES # (AUTO) 2.1 10^3/uL (1.5-3.5); LYMPHOCYTES % (AUTO) 20.4 %; MEAN CORPUSCULAR HEMOGLOBIN 33.5 pg (27.0-31.0); MEAN CORPUSCULAR HGB CONC 34.3 g/dL (32.0-36.0); MEAN CORPUSCULAR VOLUME 97.8 fL (80.0-94.0); MEAN PLATELET VOLUME 9.7 fL (7.4-11.4); MONOCYTES # (AUTO) 0.6 10^3/uL (0.0-1.0); MONOCYTES % (AUTO) 6.3 %; NEUTROPHILS % (AUTO) 69.5 %; PLT - PLATELET COUNT 272 10^3/uL (130-450); RED BLOOD COUNT 3.67 10^6/uL (4.70-6.10); RED CELL DISTRIBUTION WIDTH 14.5 % (12.0-15.0); WHITE BLOOD COUNT 10.1 x10^3/uL (4.8-10.8)
[2025-01-12 15:53] LABS: ALBUMIN 3.6 g/dL (3.2-5.5); ALBUMIN/GLOBULIN RATIO 1.6 (1.0-2.2); BILIRUBIN,TOTAL 2.3 mg/dL (0.2-1.0); CALCIUM 10.7 mg/dL (8.5-10.3); CREATININE 2.2 mg/dL (0.6-1.3); POTASSIUM 3.9 mmol/L (3.5-4.5); TOTAL PROTEIN 5.9 g/dL (6.4-8.9)
[2025-01-12] MEDS: SODIUM CHLORIDE 0.9% 1,000 ML IV STA (16:20)
[2025-01-12] MEDS: MAGNESIUM SULFATE 2 GRAM 2 GM/50 ML BAG IV STA (17:05)
[2025-01-12 17:46] LABS: BILIRUBIN,URINE NEGATIVE (NEGATIVE); GLUCOSE, URINE (UA) NEGATIVE (NEGATIVE); KETONES,URINE (UA) NEGATIVE (NEGATIVE); LEUKOCYTE ESTERASE, URINE SMALL (NEGATIVE); NITRITE,URINE NEGATIVE (NEGATIVE); OCCULT BLOOD,URINE LARGE (NEGATIVE); PROTEIN,URINE TRACE mg/dL (NEGATIVE); UROBILINOGEN,URINE 0.2 (NORMAL) E.U./dL (NORMAL)
[2025-01-12 17:47] LABS: CLARITY,URINE CLEAR (CLEAR)
[2025-01-12 17:56] LABS: BACTERIA,URINE Moderate /HPF (None Seen); SQUAMOUS EPITHELIAL CELL,UR RARE Squamous (<= Few)
--- NOTE | 2025-01-12 18:45 | HISTORY & PHYSICAL EXAMINATION ---
Chief Complaint Chief Complaint Chief Complaint: Altered mental status, not eating History of Present Illness History Obtained From Records Reviewed: Yes History obtained from: Patient's at bedside Exam Limitations: Patient slow to respond and confused History of Present Illness HPI Comment/Other: Patient is a 78-year-old male with a history of insulin-dependent diabetes mellitus, recurrent candidal rash on buttocks, COPD on daily prednisone, atrial fibrillation on Eliquis, CVA with resultant L sided weakness, chronic debility/bedbound at baseline who presents after generalized decline over the last few weeks. Per and son who are at bedside, patient has not been eating or drinking much at home. He is usually able to help take care of himself, and is alert and oriented x 4, but they have noticed that he is less interactive, and more withdrawn. He had a stroke about 3 years ago, which resulted in generalized weakness, more pronounced on his left side. He was also diagnosed with [facility] about a year ago [facility]. Family has noticed that his memory has gotten worse. He is also getting weaker. He is spending more time in his recliner. He spends the whole day there, uses diapers to go to the bathroom. His helps feed him. And he sleeps in the recliner to because it is too difficult for him to get into bed. He does not walk around at all. For the past few days, he has not been eating or drinking anything. states that he has been taking his medications. He states he just does not feel like it. At this time, he is alert and oriented x 1. He does not have any acute complaints at this time. Meds/Allgy Home Medications Ambulatory Orders Medication Instructions Recorded Confirmed albuterol sulfate 90 mcg/actuation 2 puff inhalation Q 4H PRN Wheezing 01/10/14 07/12/24 aerosol inhaler (Ventolin HFA) ##1 apixaban 5 mg tablet (Eliquis) 5 mg PO BID 07/21/20 furosemide 20 mg tablet 20 mg PO BID 01/01/21 Held on 07/13/24. Instructions: Resume on 07/27/24. Resume when PCP rechecks kidney levels and states it's okay to do so. metoprolol succinate 50 mg 50 mg PO DAILY 09/06/2101/28 tablet,extended release 24 hr atorvastatin 40 mg tablet 40 mg PO DAILY 03/14/2301/28 omeprazole magnesium 20 mg 20 mg PO DAILY 03/14/2301/28 capsule,delayed release fluticasone 250 mcg-salmeterol 50 1 puff IH DAILY 12/2707/12/24 mcg/dose blistr powdr for inhalation (Advair Diskus) prednisone 5 mg tablet,delayed 5 mg PO QPM 04/11/23 release (Corine) fluconazole 200 mg tablet 200 mg PO .3 times weekly #1 8 tabs 06/06/24 07/12/24 (Diflucan) insulin glargine-yfgn 100 unit/mL 14 unit subcut QPM 1 07/12/24 (3 mL) subcutaneous pen (Semglee (insulin glargine-yfgn) Pen) terbinafine HCl 1 % topical cream 1 applic topical BID #30 grams 06/06/24 07/12/24 (Jock Itch (terbinafine)) metformin 500 mg tablet 1,000 mg PO BID 07/05/2401/28 zinc oxide-cod liver oil 40 % 1 applic topical TID #11 3 grams 07/05/24 07/12/24 topical paste (Desitin) cholecalciferol (vitamin D3) 25 1,000 unit PO BID 01/2807/12/24 mcg (1,000 unit) capsule magnesium oxide 400 mg PO DAILY 07/12/2401/28 magnesium oxide 400 mg (241.3 mg 400 mg PO DAILY 30 da ys #30 tabs 07/13/24 magnesium) tablet Allergies Allergies Allergy/AdvReac Type Severity Reaction Status Date / Time licorice Allergy Severe Anaphylaxis Verified 01/12/25 15:13 plague vaccine Allergy extreme Verified 01/12/25 15:13 high fever zolpidem Allergy Anaphylaxis Verified 01/12/25 15:13 FOR[facility]LY [facility] Active Problems All Active Problems (Updated 01/12/25 @ 18:41 by Rich Aranda MD) COPD (chronic obstructive pulmonary disease) (Chronic) Hypomagnesemia (Acute) Encephalopathy, metabolic (Acute) Acute cystitis (Acute) Acute kidney injury (Acute) Elevated serum creatinine (Acute) Acute hyperkalemia (Acute) Mobility impaired (Acute) Rash (Acute) Stage 1 decubitus ulcer (Acute) Diabetes (Acute) Jock itch (Acute) History of adenomatous polyp of colon (Acute) Sepsis (Acute) UTI (urinary tract infection) (Acute) Type 2 diabetes mellitus (Acute) BPH (benign prostatic hyperplasia) (Acute) History of Cronin's palsy (Acute) Chronic sinusitis (Acute) Medical History Medical History Hypertension Atrial fibrillation Asthma Social History Social History Smoking Status: Former smoker If you are a former smoker, when did you quit? (Date/Year): 50 yrs ago Do you dip or chew tobacco?: No Do you vape?: No Patient requests smoking cessation consult: No Living arrangement: At home Living Condition: With spouse/s.o. Relationship: Level: Assisted Do you feel safe in your home environment?: Yes Suffered physical, verbal, emotional, or financial abuse?: No History of Abuse: No ETOH Use: Frequency: Occasional Substance Use: denies use POLST Patient has POLST: Yes POLST Status: DNR Review of Systems Patient denies any of the below, unclear if he truly understands what is being asked. Prior Level of Functionality: Stays in recliner all day. helps with ALL ADLs. Exam Exam Vital Signs: Vital Signs x48h Temp Pulse Resp BP Pulse Ox 01/12/25 15:13 96.6 F L 78 20 122/76 95 Constitutional normal general appearance, no apparent distress and average body habitus [facility] normocephalic, head/scalp atraumatic, hearing grossly abnormal (diminished hearing) and oral mucous membranes normal Eyes PERRL, EOMs intact bilaterally and conjunctivae normal Neck/C-Spine visual inspection normal, trachea midline and cervical spine nontender Chest inspection of chest normal and palpation of chest normal Respiratory breath sounds equal bilaterally, normal respiratory effort, clear to auscultation bilaterally, no wheezes and no rales Cardiovascular normal heart rate noted, rhythm abnormal (irregular), no murmur and no JVD Gastrointestinal abdomen normal to inspection, abdomen soft to palpation, nontender to palpation and nontender to percussion Genitourinary no CVA tenderness and bladder normal to palpation Back/Pelvis spine normal to inspection, no thoracic spine tenderness and no lumbar spine tenderness Extremities normal to palpation and no tenderness 3 out of 5 strength in his left lower extremity and left upper extremity, 4-5 strength in right lower extremity and right upper extremity. Sensations intact. Neurology no movement abnormality noted and no focal motor deficit noted Psychiatry mental status grossly normal, orientation abnormal (disoriented to place) and (disoriented to time), thought process normal and cooperative Skin rash noted (rash on buttocks, erythema noted; compared with prior pictures,looks better) Conclusion/Plan Problem List (1) Encephalopathy, metabolic: Plan: Patient confused, slow to respond, worsening mentation. Unclear if acute due to UTI or worsening of his dementia. Continue Rocephin. UA positive for infection. Urine culture pending. Social work consulted for possible Hospice informational and placement, family would like more information. (2) Hypomagnesemia: Plan: Continue active replacement, IV magnesium ordered. Continue to trend. Continue oral supplementation daily. (3) UTI (urinary tract infection): Plan: Continue Rocephin. Qualifiers: Qualified Code(s): N10 - Acute pyelonephritis (4) Mobility impaired: Plan: Patient impaired due to chronic weakness, CVA three years ago. Uses diapers, is essentially bedbound. (5) Stage 1 decubitus ulcer: Plan: Patient is essentially bedbound; this is likely from result of his immobility. Continue frequent repositioning. Qualifiers: Pressure injury location: buttock Laterality: unspecified laterality Q ualified Code(s): L89.301 - Pressure ulcer of unspecified buttock, stage 1 (6) Type 2 diabetes mellitus: Plan: Continue home long-acting insulin 14 units at night. Continue sliding scale insulin, hypoglycemic protocol while here. Qualifiers: Diabetes mellitus senior care insulin use: with senior care use Diabetes mellitus complication status: without complication Qualified Code(s): E11.9 - Type 2 diabetes mellitus without complications; Z79.4 - MCFP (current) use of insulin (7) BPH (benign prostatic hyperplasia): Plan: Continue advised to follow-up with urology outpatient. Qualifiers: Lower urinary tract symptom presence: symptoms present Lower urinary tract symptom detail: unspecified Qualified Code(s): N40.1 - Benign prostatic hyperplasia with lower urinary tract symptoms (8) Atrial fibrillation: Plan: Continue Eliquis, metoprolol. Hold parameters placed. Qualifiers: Atrial fibrillation type: longstanding persistent Qualified Code(s): I 48.11 - Longstanding persistent atrial fibrillation (9) Hypertension: Plan: Hold AMANDA inhibitor at this time. Continue metoprolol. Qualifiers: Hypertension type: primary hypertension Qualified Code(s): I10 - Essential (primary) hypertension (10) COPD (chronic obstructive pulmonary disease): Plan: Continue prednisone (takes 5 mg daily), Duonebs as needed. Qualifiers: COPD type: unspecified COPD Qualified Code(s): J44.9 - Chronic obstructive pulmonary disease, unspecified Lab Results Lab results reviewed: Yes 01/12/25 15:35 01/12/25 15:35 Diagnostic Imaging Results Diagnostic Imaging Results: positive Final report reviewed EKG Results EKG Findings: Pending completion. Core Measures Anticipated LOS I expect patient to be DC'd or transferred within 96 hours.: Yes DVT/VTE - Prophylaxis VTE/DVT Device ordered at admit?: Yes VTE/DVT Prophylaxis med ordered at admit?: Yes Stroke - Rehab Assessment Rehab services assessment to be ordered?: No Not Ordered - Medical Reason: Not indicated AMI - Statin at Admit Aspirin Prescribed on Admit: Yes
[2025-01-12] MEDS ORDERED: cefTRIAXone 2 GM VIAL ONE (18:50)
[2025-01-12] MEDS: cefTRIAXone 2 GM in SODIUM CHLORIDE 0.9% MINIBAG 100 ML IV STA (19:00)
[2025-01-12] MEDS ORDERED: ONDANSETRON ODT 4 MG TABLET TL PRN (19:27)
[2025-01-12] MEDS ORDERED: SODIUM CHLORIDE FLUSH 0.9% 10 ML SYRINGE IVP PRN (19:27)
[2025-01-12] MEDS ORDERED: ONDANSETRON 4 MG/2 ML VIAL IVP PRN (19:27)
[2025-01-12] MEDS ORDERED: ACETAMINOPHEN 325 MG TABLET PO PRN (19:27)
[2025-01-12] MEDS ORDERED: ALBUTEROL NEB 2.5 MG/3 ML INH PRN (20:26)
[2025-01-12] MEDS: INSULIN GLARGINE-YFGN 300 UNIT/3 ML PEN SUBQ SCH (21:21)
[2025-01-12] MEDS: FUROSEMIDE 20 MG TABLET PO SCH (21:21)
[2025-01-12] MEDS: predniSONE 5 MG TABLET PO SCH (21:21)
[2025-01-12] MEDS: APIXABAN 5 MG TABLET PO SCH (21:21)
[2025-01-12] MEDS: CHOLECALCIFEROL 25 MCG TABLET PO SCH (21:21)
[2025-01-12] MEDS: INSULIN LISPRO 300 UNIT/3 ML PEN SUBQ SCH (21:22)
[2025-01-12] MEDS: TERBINAFINE HCL 1% TOP SCH (21:22)
[2025-01-12] MEDS: COD LIVER OIL/ZINC OXIDE 113 GM TUBE TOP SCH (23:48)
[2025-01-13] MEDS: SODIUM CHLORIDE FLUSH 0.9% 10 ML SYRINGE IVP SCH (01:02)
[2025-01-13 05:05] LABS: HCT - HEMATOCRIT 32.2 % (42.0-52.0); HGB - HEMOGLOBIN 11.6 g/dL (14.0-18.0); MEAN CORPUSCULAR HEMOGLOBIN 34.6 pg (27.0-31.0); MEAN CORPUSCULAR VOLUME 96.1 fL (80.0-94.0); MEAN PLATELET VOLUME 10.5 fL (7.4-11.4); RED BLOOD COUNT 3.35 10^6/uL (4.70-6.10)
[2025-01-13 05:13] LABS: MAGNESIUM 1.3 mg/dL (1.7-2.3)
[2025-01-13 05:18] LABS: CREATININE 1.8 mg/dL (0.6-1.3); POTASSIUM 4.1 mmol/L (3.5-4.5)
[2025-01-13] MEDS: BUDESONIDE 0.5 MG/2 ML NEB INH SCH (07:00)
[2025-01-13] MEDS: FORMOTEROL FUMARATE NEB 20 MCG/2 ML INH SCH (07:00)
[2025-01-13] MEDS: MAGNESIUM OXIDE 400 MG TABLET PO SCH (08:29)
[2025-01-13] MEDS: cefTRIAXone 1 GM in SODIUM CHLORIDE 0.9% MINIBAG 100 ML IV SCH (08:29)
[2025-01-13] MEDS: ATORVASTATIN 40 MG TABLET PO SCH (08:29)
[2025-01-13] MEDS: PANTOPRAZOLE 40 MG TABLET PO SCH (08:32)
[2025-01-13] MEDS: TERBINAFINE HCL 1% TOP SCH (08:33)
[2025-01-13] MEDS: METOPROLOL SUCCINATE 50 MG TABLET PO SCH (08:56)
--- NOTE | 2025-01-13 09:24 | PROVIDER PROGRESS NOTE ---
Subjective Subjective Subjective: Patient states that he just does not feel like eating. He denies any fevers, chills, shortness of breath. Social work is actively talking to the about arranging hospice at a facility versus home. He is medically cleared today. Current Medications Current Medications Current Medications: Current Medications Generic Name Dose Route Start Last Admin Trade Name Freq PRN Reason Stop Dose Admin Acetaminophen 650 mg 01/12/25 19:27 Acetaminophen 325 Mg Tablet PO Q4HR PRN Pain 1 to 4, or Fever Albuterol 2.5 mg 01/12/25 20:26 Albuterol Neb 2.5 Mg/3 Ml INH RTQ4H PRN Wheezing Apixaban 5 mg 01/12/25 21:00 01/13/25 08:30 Apixaban 5 Mg Tablet PO 5 mg BID MELISA Administration Atorvastatin Calcium 40 mg 01/13/25 09:00 01/13/25 08:29 Atorvastatin 40 Mg Tablet PO 40 mg DAILY MELISA Administration Budesonide 0.5 mg 01/13/25 07:00 Budesonide 0.5 Mg/2 Ml Neb INH RTBID MELISA Cholecalciferol 25 mcg 01/12/25 21:00 01/13/25 08:29 Cholecalciferol 25 Mcg Tablet PO 25 mcg BID MELISA Administration Formoterol Fumarate 20 mcg 01/13/25 07:00 Formoterol Fumarate Neb 20 Mcg/2 Ml INH RTBID MELISA Ceftriaxone Sodium 1 gm/ 100 mls @ 200 mls/hr 01/13/25 09:00 01/13/25 08:29 Sodium Chloride IV 200 mls/hr DAILY MELISA Administration Magnesium Oxide 400 mg 01/13/25 09:00 01/13/25 08:29 Magnesium Oxide 400 Mg Tablet PO 400 mg DAILY MELISA Administration Metoprolol Succinate 50 mg 01/13/25 09:00 01/13/25 08:56 Metoprolol Succinate 50 Mg Tablet PO Not Given DAILY MELISA Ondansetron HCl 4 mg 01/12/25 19:27 Ondansetron Odt 4 Mg Tablet TL Q6HR PRN Nausea / Vomiting Ondansetron HCl 4 mg 01/12/25 19:27 Ondansetron 4 Mg/2 Ml Vial IVP Q6HR PRN Nausea / Vomiting Pantoprazole Sodium 40 mg 01/13/25 09:00 01/13/25 08:32 Pantoprazole 40 Mg Tablet PO 40 mg DAILY MELISA Administration Terbinafine Hcl [ 1 each 01/13/25 09:00 01/13/25 08:33 Jock Itch ( TOP Not Given Terbinafine)] 1 % BID MELISA Cream Prednisone 5 mg 01/12/25 21:00 01/12/25 21:21 Prednisone 5 Mg Tablet PO 5 mg QPM MELISA Administration Sodium Chloride 10 ml 01/12/25 19:27 Sodium Chloride Flush 0.9% 10 Ml Syringe IVP PRN PRN NEEDED PER PROVIDER ORDERS Sodium Chloride 10 ml 01/13/25 01:00 01/13/25 08:33 Sodium Chloride Flush 0.9% 10 Ml Syringe IVP 10 ml 0100,0900,1700 MELISA Administration Zinc Oxide 0 gm 01/12/25 22:00 01/13/25 06:30 Cod Liver Oil/Zinc Oxide 113 Gm Tube TOP 1 applic TID MELISA Administration Objective Vital Signs/Intake & Output Reviewed Vital Signs: Yes Vital Signs: Vital Signs x48h Temp Pulse Resp BP Pulse Ox 01/13/25 07:45 97.7 F 47 L 16 118/68 99 01/13/25 04:15 97.7 F 65 20 132/69 H 97 Intake & Output: Intake & Output 01/10/25 01/11/25 01/12/25 01/13/25 23:59 23:59 23:59 23:59 Intake Total 1290 / 1290 60 / 60 Output Total 350 / 350 Balance 940 / 940 60 / 60 Weight (kg) 82.5 kg Objective General Appearance: positive No acute distress and Alert; negative Anxious Eyes Bilateral: positive Normal inspection, PERRL and EOMI ENT: positive ENT inspection nml, Pharynx nml and No signs of dehydration Neck: positive Nml inspection, Thyroid nml and No JVD Respiratory: positive Chest non-tender, No respiratory distress and Breath sounds nml; negative Wheezes, Rales or Rhonchi Cardiovascular: positive No murmur, No gallop and Irregularly irregular; negative Tachycardia or Systolic murmur Abdomen: positive Non-tender, No organomegaly and No distention; negative Guarding or Splenomegaly Back: positive Nml inspection; negative CVA tenderness (R) or CVA tenderness (L) Skin: positive Color nml, No rash, Warm and Dry Extremities: positive Non-tender, Nml appearance, No pedal edema and Other (ormal to palpation and no tenderness 3 out of 5 strength in his left lower extremity and left upper extremity, 4-5 strength in right lower extremity and right upper extremity. Sensations intact. ) Neurologic/Psychiatric: positive Motor nml, Mood/affect nml, Disoriented to place and Disoriented to time Lab Results 01/13/25 04:36 01/13/25 04:36 Other Labs: Lab Results x24hrs 01/13/25 01/13/25 01/12/25 Range/Units 07:33 04:36 23:52 WBC 10.0 (4.8-10.8) x10^3/uL RBC 3.35 L (4.70-6.10) 10^6/uL Hgb 11.6 L (14.0-18.0) g/dL Hct 32.2 L (42.0-52.0) % MCV 96.1 H (80.0-94.0) fL MCH 34.6 H (27.0-31.0) pg MCHC 36.0 (32.0-36.0) g/dL RDW 14.0 (12.0-15.0) % Plt Count 251 (130-450) 10^3/uL MPV 10.5 (7.4-11.4) fL Neut # (Auto) (1.5-6.6) 10^3/uL Lymph # (Auto) (1.5-3.5) 10^3/uL [place] # (Auto) (0.0-1.0) 10^3/uL Eos # (Auto) (0.0-0.7) 10^3/uL Baso # (Auto) (0.0-0.1) 10^3/uL Absolute Nucleated RBC x10^3/uL Nucleated RBC % /100WBC Sodium 141 (135-145) mmol/L Potassium 4.1 (3.5-4.5) mmol/L Chloride 108 (101-111) mmol/L Carbon Dioxide 26 (21-32) mmol/L Anion Gap 7.0 (6-13) BUN 32 H (6-20) mg/dL Creatinine 1.8 H (0.6-1.3) mg/dL Estimated GFR (MDRD) 36 L (>89) Glucose 125 H (74-104) mg/dL POC Whole Bld Glucose 98 92 (70-100) mg/dL Calcium 10.0 (8.5-10.3) mg/dL Magnesium 1.3 L (1.7-2.3) mg/dL Total Bilirubin (0.2-1.0) mg/dL AST (10-42) IU/L ALT (10-60) IU/L Alkaline Phosphatase (42-121) IU/L Total Protein (6.4-8.9) g/dL Albumin (3.2-5.5) g/dL Globulin (2.1-4.2) g/dL Albumin/Globulin Ratio (1.0-2.2) Lipase (11-82) U/L Urine Color Urine Clarity (CLEAR) Urine pH (5.0-7.5) PH Ur Specific [place] (1.002-1.030) Urine Protein (NEGATIVE) mg/dL Urine Glucose (UA) (NEGATIVE) mg/dL Urine Ketones (NEGATIVE) mg/dL Urine Occult Blood (NEGATIVE) Urine Nitrite (NEGATIVE) Urine Bilirubin (NEGATIVE) Urine Urobilinogen (NORMAL) E.U./dL Ur Leukocyte Esterase (NEGATIVE) Urine RBC (0-5) /HPF Urine WBC (0-3) /HPF Ur Squamous Epith Cells (<= Few) Urine Bacteria (None Seen) /HPF Ur Microscopic Review Urine Culture Comments 01/12/25 01/12/25 01/12/25 Range/Units 20:50 16:20 15:35 WBC 10.1 (4.8-10.8) x10^3/uL RBC 3.67 L (4.70-6.10) 10^6/uL Hgb 12.3 L (14.0-18.0) g/dL Hct 35.9 L (42.0-52.0) % MCV 97.8 H (80.0-94.0) fL MCH 33.5 H (27.0-31.0) pg MCHC 34.3 (32.0-36.0) g/dL RDW 14.5 (12.0-15.0) % Plt Count 272 (130-450) 10^3/uL MPV 9.7 (7.4-11.4) fL Neut # (Auto) 7.0 H (1.5-6.6) 10^3/uL Lymph # (Auto) 2.1 (1.5-3.5) 10^3/uL [place] # (Auto) 0.6 (0.0-1.0) 10^3/uL Eos # (Auto) 0.3 (0.0-0.7) 10^3/uL Baso # (Auto) 0.1 (0.0-0.1) 10^3/uL Absolute Nucleated RBC 0.00 x10^3/uL Nucleated RBC % 0.0 /100WBC Sodium 142 (135-145) mmol/L Potassium 3.9 (3.5-4.5) mmol/L Chloride 107 (101-111) mmol/L Carbon Dioxide 30 (21-32) mmol/L Anion Gap 5.0 L (6-13) BUN 35 H (6-20) mg/dL Creatinine 2.2 H (0.6-1.3) mg/dL Estimated GFR (MDRD) 29 L (>89) Glucose 83 (74-104) mg/dL POC Whole Bld Glucose 75 (70-100) mg/dL Calcium 10.7 H (8.5-10.3) mg/dL Magnesium 0.9 L* (1.7-2.3) mg/dL Total Bilirubin 2.3 H (0.2-1.0) mg/dL AST 17 (10-42) IU/L ALT 15 (10-60) IU/L Alkaline Phosphatase 58 (42-121) IU/L Total Protein 5.9 L (6.4-8.9) g/dL Albumin 3.6 (3.2-5.5) g/dL Globulin 2.3 (2.1-4.2) g/dL Albumin/Globulin Ratio 1.6 (1.0-2.2) Lipase 25 (11-82) U/L Urine Color YELLOW Urine Clarity CLEAR (CLEAR) Urine pH 6.0 (5.0-7.5) PH Ur Specific [place] 1.020 (1.002-1.030) Urine Protein TRACE (NEGATIVE) mg/dL Urine Glucose (UA) NEGATIVE (NEGATIVE) mg/dL Urine Ketones NEGATIVE (NEGATIVE) mg/dL Urine Occult Blood LARGE H (NEGATIVE) Urine Nitrite NEGATIVE (NEGATIVE) Urine Bilirubin NEGATIVE (NEGATIVE) Urine Urobilinogen 0.2 (NORMAL) (NORMAL) E.U./dL Ur Leukocyte Esterase SMALL H (NEGATIVE) Urine RBC 11-25 H (0-5) /HPF Urine WBC 11-25 H (0-3) /HPF Ur Squamous Epith Cells RARE Squamous (<= Few) Urine Bacteria Moderate H (None Seen) /HPF Ur Microscopic Review INDICATED Urine Culture Comments INDICATED Assessment/Plan Problem List (1) Encephalopathy, metabolic: Impression: Patient is back at his baseline. Continue Rocephin. UA positive for infection. Urine culture pending. Will likely de-escalate to oral antibiotics. Social work consulted for possible Hospice informational and placement, family would like more information. (2) Hypomagnesemia: Impression: Continue active replacement, IV magnesium ordered yesterday 1x. Continue to trend. Continue oral supplementation daily. (3) UTI (urinary tract infection): Impression: Continue Rocephin. Qualifiers: Qualified Code(s): N10 - Acute pyelonephritis (4) Mobility impaired: Impression: Patient impaired due to chronic weakness, CVA three years ago. Uses diapers, is essentially bedbound. (5) Stage 1 decubitus ulcer: Impression: Patient is essentially bedbound; this is likely from result of his immobility. Continue frequent repositioning. Qualifiers: Laterality: unspecified laterality Pressure injury location: buttock Q ualified Code(s): L89.301 - Pressure ulcer of unspecified buttock, stage 1 (6) Type 2 diabetes mellitus: Impression: Patient is not eating. Sugars have been low. Hold long acting insulin, sliding scale insulin, hypoglycemic protocol while here. Qualifiers: Diabetes mellitus complication status: without complication Diabetes mellitus multi media specialist insulin use: with multi media specialist use Qualified Code(s): E11.9 - Type 2 diabetes mellitus without complications; Z79.4 - therapeutic dietitian (current) use of insulin (7) BPH (benign prostatic hyperplasia): Impression: Continue to advise to follow-up with urology outpatient. Qualifiers: Lower urinary tract symptom detail: unspecified Lower urinary tract symptom presence: symptoms present Qualified Code(s): N40.1 - Benign prostatic hyperplasia with lower urinary tract symptoms (8) Atrial fibrillation: Impression: Continue Eliquis, metoprolol. Hold parameters placed. Qualifiers: Atrial fibrillation type: longstanding persistent Qualified Code(s): I 48.11 - Longstanding persistent atrial fibrillation (9) Hypertension: Impression: Hold AMANDA inhibitor at this time. Continue metoprolol. Qualifiers: Hypertension type: primary hypertension Qualified Code(s): I10 - Essential (primary) hypertension (10) COPD (chronic obstructive pulmonary disease): Impression: Continue prednisone (takes 5 mg daily), Duonebs as needed. Qualifiers: COPD type: unspecified COPD Qualified Code(s): J44.9 - Chronic obstructive pulmonary disease, unspecified
--- NOTE | 2025-01-13 12:14 | PHARMACY PROGRESS NOTE ---
Best Possible Medication History Admit Date and Time: 01/12/25 [id number] Home Medications Medication Instructions Recorded Confirmed Type albuterol sulfate 90 mcg/actuation 2 puff inhalation Q 4H PRN Wheezing 01/10/14 01/13/25 Rx aerosol inhaler (Ventolin HFA) ##1 apixaban 5 mg tablet (Eliquis) 5 mg PO BID 07/21/20 History furosemide 20 mg tablet 20 mg PO BID 01/01/21 History Held on 07/13/24. Instructions: Resume on 07/27/24. Resume when PCP rechecks kidney levels and states it's okay to do so. metoprolol succinate 50 mg 50 mg PO DAILY 09/06/2105/01 History tablet,extended release 24 hr atorvastatin 40 mg tablet 40 mg PO DAILY 03/14/2305/01 History omeprazole magnesium 20 mg 20 mg PO DAILY 03/14/2305/01 History capsule,delayed release fluticasone 250 mcg-salmeterol 50 1 puff inhalation BI D PRN 04/11/23 01/13/25 History mcg/dose blistr powdr for shortness of breath or wheez ing inhalation (Advair Diskus) insulin glargine-yfgn 100 unit/mL 14 unit subcut QPM 1 01/13/25 History (3 mL) subcutaneous pen (Semglee (insulin glargine-yfgn) Pen) metformin 500 mg tablet 1,000 mg PO BID 07/05/2405/01 History cholecalciferol (vitamin D3) 25 1,000 unit PO DAILY 01/13/25 History mcg (1,000 unit) capsule magnesium oxide 400 mg PO DAILY 07/12/2405/01 History albuterol sulfate 2.5 mg/3 mL 2.5 mg inhalation Q6H OH N 01/13/25 01/13/25 H istory (0.083 %) solution for nebulization shortness of breat h or wheezing amlodipine 5 mg tablet 7.5 mg PO DAILY 01/13/2505/01 History epinephrine 0.3 mg/0.3 mL 0.3 mg IM ONCE PRN anaphylax is 01/13/25 01/13/25 History injection, auto-injector (EpiPen) ipratropium 0.5 mg-albuterol 3 mg 3 ml inhalation JESS Y PRN 01/13/25 01/13/25 History (2.5 mg base)/3 mL nebulization shortness of breath or wheezing soln lisinopril 20 mg tablet 20 mg PO BID 01/13/25 History nitroglycerin 0.4 mg sublingual 0.4 mg sublingual Q5M PRN chest 01/13/25 01/13/25 History tablet pain prednisone 5 mg tablet 5 mg PO DAILY 01/13/2501/13 History spironolactone 25 mg tablet 25 mg PO DAILY 01/13/25 History Processed by: Pharmacy (Medication Reconciliation completed by [employer]) Medications reviewed in ED?: No Medication History completed: Yes Patient Interview: Pt unable to participate Secondary Source(s): Written medication list and Spouse/Significant other [facility] Statement: As the person ultimately responsible for medication therapy, providers are able to order a medication from an existing home medication list in [facility] via the "Reconcile Routine" prior to Confirmation of that medication by supportive employment case manager. Such practice is discouraged except when the physician, in their clinical judgment, deems that a medical need exists for a medication without regard to previous use.
[2025-01-13] MEDS: APIXABAN 2.5 MG TABLET PO SCH (21:29)
[2025-01-14] MEDS: LINEZOLID 600 MG TABLET PO SCH (13:23)
--- NOTE | 2025-01-14 13:57 | PROVIDER PROGRESS NOTE ---
Subjective Prog Note Date Prog Note Date: 01/14/25 Subjective Pt reports feeling: No change Subjective: Remains at baseline Current Medications Current Medications Current Medications: Current Medications Generic Name Dose Route Start Last Admin Trade Name Freq PRN Reason Stop Dose Admin Acetaminophen 650 mg 01/12/25 19:27 Acetaminophen 325 Mg Tablet PO Q4HR PRN Pain 1 to 4, or Fever Albuterol 2.5 mg 01/12/25 20:26 Albuterol Neb 2.5 Mg/3 Ml INH RTQ4H PRN Wheezing Apixaban 2.5 mg 01/13/25 21:00 01/14/25 08:15 Apixaban 2.5 Mg Tablet PO 2.5 mg BID MELISA Administration Atorvastatin Calcium 40 mg 01/13/25 09:00 01/14/25 08:15 Atorvastatin 40 Mg Tablet PO 40 mg DAILY MELISA Administration Budesonide 0.5 mg 01/13/25 07:00 01/14/25 07:36 Budesonide 0.5 Mg/2 Ml Neb INH 0.5 mg RTBID MELISA Administration Cholecalciferol 25 mcg 01/12/25 21:00 01/14/25 08:15 Cholecalciferol 25 Mcg Tablet PO 25 mcg BID MELISA Administration Formoterol Fumarate 20 mcg 01/13/25 07:00 01/14/25 07:36 Formoterol Fumarate Neb 20 Mcg/2 Ml INH 20 mcg RTBID MELISA Administration Linezolid 600 mg 01/14/25 12:15 01/14/25 13:23 Linezolid 600 Mg Tablet PO 600 mg BID MELISA Administration Magnesium Oxide 400 mg 01/13/25 09:00 01/14/25 08:15 Magnesium Oxide 400 Mg Tablet PO 400 mg DAILY MELISA Administration Ondansetron HCl 4 mg 01/12/25 19:27 Ondansetron Odt 4 Mg Tablet TL Q6HR PRN Nausea / Vomiting Ondansetron HCl 4 mg 01/12/25 19:27 Ondansetron 4 Mg/2 Ml Vial IVP Q6HR PRN Nausea / Vomiting Pantoprazole Sodium 40 mg 01/15/25 07:00 Pantoprazole 40 Mg Tablet PO QDAC MELISA Terbinafine Hcl [ 1 each 01/13/25 09:00 01/14/25 11:30 Jock Itch ( TOP Not Given Terbinafine)] 1 % BID MELISA Cream Prednisone 5 mg 01/12/25 21:00 01/13/25 21:29 Prednisone 5 Mg Tablet PO 5 mg QPM MELISA Administration Sodium Chloride 10 ml 01/12/25 19:27 Sodium Chloride Flush 0.9% 10 Ml Syringe IVP PRN PRN NEEDED PER PROVIDER ORDERS Sodium Chloride 10 ml 01/13/25 01:00 01/14/25 13:24 Sodium Chloride Flush 0.9% 10 Ml Syringe IVP 10 ml 0100,0900,1700 MELISA Administration Zinc Oxide 0 gm 01/12/25 22:00 01/14/25 13:24 Cod Liver Oil/Zinc Oxide 113 Gm Tube TOP 1 applic TID MELISA Administration Objective Vital Signs/Intake & Output Reviewed Vital Signs: Yes Vital Signs: Vital Signs x48h Temp Pulse Pulse Resp BP Pulse Ox 01/14/25 11:24 36.5 C 82 18 126/84 97 01/14/25 07:38 78 20 01/14/25 07:36 36.5 C 71 20 150/85 H 97 Intake & Output: Intake & Output 01/11/25 01/12/25 01/13/25 01/14/25 23:59 23:59 23:59 23:59 Intake Total 1290 / 1290 960 / 960 840 / 840 Output Total 350 / 350 Balance 940 / 940 960 / 960 840 / 840 Weight (kg) 82.5 kg Objective General Appearance: positive No acute distress and Alert; negative Anxious Eyes Bilateral: positive Normal inspection, PERRL and EOMI ENT: positive ENT inspection nml, Pharynx nml and No signs of dehydration Neck: positive Nml inspection, Thyroid nml and No JVD Respiratory: positive Chest non-tender, No respiratory distress and Breath sounds nml Cardiovascular: positive No murmur, No gallop and Irregularly irregular Abdomen: positive Non-tender, No organomegaly and No distention Skin: positive Color nml, No rash, Warm and Dry Extremities: positive Non-tender, Nml appearance and No pedal edema Neurologic/Psychiatric: positive Motor nml, Mood/affect nml, Disoriented to place and Disoriented to time Lab Results 01/13/25 04:36 01/13/25 04:36 Other Labs: Lab Results x24hrs 01/13/25 01/13/25 01/12/25 Range/Units 07:33 04:36 23:52 WBC 10.0 (4.8-10.8) x10^3/uL RBC 3.35 L (4.70-6.10) 10^6/uL Hgb 11.6 L (14.0-18.0) g/dL Hct 32.2 L (42.0-52.0) % MCV 96.1 H (80.0-94.0) fL MCH 34.6 H (27.0-31.0) pg MCHC 36.0 (32.0-36.0) g/dL RDW 14.0 (12.0-15.0) % Plt Count 251 (130-450) 10^3/uL MPV 10.5 (7.4-11.4) fL Neut # (Auto) (1.5-6.6) 10^3/uL Lymph # (Auto) (1.5-3.5) 10^3/uL Allen # (Auto) (0.0-1.0) 10^3/uL Eos # (Auto) (0.0-0.7) 10^3/uL Baso # (Auto) (0.0-0.1) 10^3/uL Absolute Nucleated RBC x10^3/uL Nucleated RBC % /100WBC Sodium 141 (135-145) mmol/L Potassium 4.1 (3.5-4.5) mmol/L Chloride 108 (101-111) mmol/L Carbon Dioxide 26 (21-32) mmol/L Anion Gap 7.0 (6-13) BUN 32 H (6-20) mg/dL Creatinine 1.8 H (0.6-1.3) mg/dL Estimated GFR (MDRD) 36 L (>89) Glucose 125 H (74-104) mg/dL POC Whole Bld Glucose 98 92 (70-100) mg/dL Calcium 10.0 (8.5-10.3) mg/dL Magnesium 1.3 L (1.7-2.3) mg/dL Total Bilirubin (0.2-1.0) mg/dL AST (10-42) IU/L ALT (10-60) IU/L Alkaline Phosphatase (42-121) IU/L Total Protein (6.4-8.9) g/dL Albumin (3.2-5.5) g/dL Globulin (2.1-4.2) g/dL Albumin/Globulin Ratio (1.0-2.2) Lipase (11-82) U/L Urine Color Urine Clarity (CLEAR) Urine pH (5.0-7.5) PH Ur Specific [place] (1.002-1.030) Urine Protein (NEGATIVE) mg/dL Urine Glucose (UA) (NEGATIVE) mg/dL Urine Ketones (NEGATIVE) mg/dL Urine Occult Blood (NEGATIVE) Urine Nitrite (NEGATIVE) Urine Bilirubin (NEGATIVE) Urine Urobilinogen (NORMAL) E.U./dL Ur Leukocyte Esterase (NEGATIVE) Urine RBC (0-5) /HPF Urine WBC (0-3) /HPF Ur Squamous Epith Cells (<= Few) Urine Bacteria (None Seen) /HPF Ur Microscopic Review Urine Culture Comments 01/12/25 01/12/25 01/12/25 Range/Units 20:50 16:20 15:35 WBC 10.1 (4.8-10.8) x10^3/uL RBC 3.67 L (4.70-6.10) 10^6/uL Hgb 12.3 L (14.0-18.0) g/dL Hct 35.9 L (42.0-52.0) % MCV 97.8 H (80.0-94.0) fL MCH 33.5 H (27.0-31.0) pg MCHC 34.3 (32.0-36.0) g/dL RDW 14.5 (12.0-15.0) % Plt Count 272 (130-450) 10^3/uL MPV 9.7 (7.4-11.4) fL Neut # (Auto) 7.0 H (1.5-6.6) 10^3/uL Lymph # (Auto) 2.1 (1.5-3.5) 10^3/uL Allen # (Auto) 0.6 (0.0-1.0) 10^3/uL Eos # (Auto) 0.3 (0.0-0.7) 10^3/uL Baso # (Auto) 0.1 (0.0-0.1) 10^3/uL Absolute Nucleated RBC 0.00 x10^3/uL Nucleated RBC % 0.0 /100WBC Sodium 142 (135-145) mmol/L Potassium 3.9 (3.5-4.5) mmol/L Chloride 107 (101-111) mmol/L Carbon Dioxide 30 (21-32) mmol/L Anion Gap 5.0 L (6-13) BUN 35 H (6-20) mg/dL Creatinine 2.2 H (0.6-1.3) mg/dL Estimated GFR (MDRD) 29 L (>89) Glucose 83 (74-104) mg/dL POC Whole Bld Glucose 75 (70-100) mg/dL Calcium 10.7 H (8.5-10.3) mg/dL Magnesium 0.9 L* (1.7-2.3) mg/dL Total Bilirubin 2.3 H (0.2-1.0) mg/dL AST 17 (10-42) IU/L ALT 15 (10-60) IU/L Alkaline Phosphatase 58 (42-121) IU/L Total Protein 5.9 L (6.4-8.9) g/dL Albumin 3.6 (3.2-5.5) g/dL Globulin 2.3 (2.1-4.2) g/dL Albumin/Globulin Ratio 1.6 (1.0-2.2) Lipase 25 (11-82) U/L Urine Color YELLOW Urine Clarity CLEAR (CLEAR) Urine pH 6.0 (5.0-7.5) PH Ur Specific [place] 1.020 (1.002-1.030) Urine Protein TRACE (NEGATIVE) mg/dL Urine Glucose (UA) NEGATIVE (NEGATIVE) mg/dL Urine Ketones NEGATIVE (NEGATIVE) mg/dL Urine Occult Blood LARGE H (NEGATIVE) Urine Nitrite NEGATIVE (NEGATIVE) Urine Bilirubin NEGATIVE (NEGATIVE) Urine Urobilinogen 0.2 (NORMAL) (NORMAL) E.U./dL Ur Leukocyte Esterase SMALL H (NEGATIVE) Urine RBC 11-25 H (0-5) /HPF Urine WBC 11-25 H (0-3) /HPF Ur Squamous Epith Cells RARE Squamous (<= Few) Urine Bacteria Moderate H (None Seen) /HPF Ur Microscopic Review INDICATED Urine Culture Comments INDICATED Assessment/Plan Problem List (1) Encephalopathy, metabolic: Impression: Patient is back at his baseline. Continue Rocephin. UA positive for infection. Urine culture pending. Will likely de-escalate to oral antibiotics. Social work consulted for possible Hospice informational and placement, family would like more information. 1625: Remains medically clear. Continuing Rocephin. Awaiting hospice placement (2) Hypomagnesemia: Impression: Continue active replacement, IV magnesium ordered yesterday 1x. Continue to trend. Continue oral supplementation daily. (3) UTI (urinary tract infection): Impression: Continue Rocephin. Qualifiers: Qualified Code(s): N10 - Acute pyelonephritis (4) Mobility impaired: Impression: Patient impaired due to chronic weakness, CVA three years ago. Uses diapers, is essentially bedbound. (5) Stage 1 decubitus ulcer: Impression: Patient is essentially bedbound; this is likely from result of his immobility. Continue frequent repositioning. Qualifiers: Pressure injury location: buttock Laterality: unspecified laterality Q ualified Code(s): L89.301 - Pressure ulcer of unspecified buttock, stage 1 (6) Type 2 diabetes mellitus: Impression: Patient is not eating. Sugars have been low. Hold long acting insulin, sliding scale insulin, hypoglycemic protocol while here. 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 Qualifiers: Lower urinary tract symptom presence: symptoms present Lower urinary tract symptom detail: unspecified Qualified Code(s): N40.1 - Benign prostatic hyperplasia with lower urinary tract symptoms (8) Atrial fibrillation: Impression: Continue Eliquis, metoprolol. Hold parameters placed. Qualifiers: Atrial fibrillation type: longstanding persistent Qualified Code(s): I 48.11 - Longstanding persistent atrial fibrillation (9) Hypertension: Impression: Hold AMANDA inhibitor at this time. Continue metoprolol. Qualifiers: Hypertension type: primary hypertension Qualified Code(s): I10 - Essential (primary) hypertension (10) COPD (chronic obstructive pulmonary disease): Impression: Continue prednisone (takes 5 mg daily), Duonebs as needed. Qualifiers: COPD type: unspecified COPD Qualified Code(s): J44.9 - Chronic obstructive pulmonary disease, unspecified
[2025-01-15] MEDS: PANTOPRAZOLE 40 MG TABLET PO SCH (05:26)
[2025-01-15 08:05] VITALS: BP 150/88; TEMP 97.7; O2SAT 96
--- NOTE | 2025-01-15 08:51 | Discharge Summary ---
Discharge Summary Admit Date: 01/12/25 Discharge Date: 01/15/25 Discharging Provider: Moris Ojeda Primary Care Provider: Nila De La Rosa Code Status: Do Not Attempt Resuscitation DIAGNOSES Admission Diagnoses: Acute metabolic encephalopathy Hypomagnesemia UTI Mobility impaired Stage I decubitus ulcer Type 2 diabetes BPH Atrial fibrillation Hypertension COPD with exacerbation Discharge Diagnoses with Status of Each Condition: Acute metabolic encephalopathyimproved, mentation at baseline Hypomagnesemiarepleted UTIon antibiotics Mobility impairedchronic Stage I decubituspressure offloading Type 2 diabeteschronic BPHchronic Atrial fibrillationchronic Hypertensionchronic COPD with exacerbationon room air HPI History of Present Illness: Patient is a 78-year-old male with a history of insulin-dependent diabetes mellitus, recurrent candidal rash on buttocks, COPD on daily prednisone, atrial fibrillation on Eliquis, CVA with resultant L sided weakness, chronic debility/bedbound at baseline who presents after generalized decline over the last few weeks. Per and son who are at bedside, patient has not been eating or drinking much at home. He is usually able to help take care of himself, and is alert and oriented x 4, but they have noticed that he is less interactive, and more withdrawn. He had a stroke about 3 years ago, which resulted in generalized weakness, more pronounced on his left side. He was also diagnosed with dementia about a year ago at his [place] neurologists' office. Family has noticed that his memory has gotten worse. He is also getting weaker. He is spending more time in his recliner. He spends the whole day there, uses diapers to go to the bathroom. His helps feed him. And he sleeps in the recliner to because it is too difficult for him to get into bed. He does not walk around at all. For the past few days, he has not been eating or drinking anything. states that he has been taking his medications. He states he just does not feel like it. At this time, he is alert and oriented x 1. He does not have any acute complaints at this time. HOSPITAL COURSE Hospital Course: Patient was admitted into the hospital in observation status and received antibiotics for his UTI which improved his mentation. While in the hospital, decision was made to make him hospice. He is being discharged to a facility to establish himself with hospice care. He will continue a course of Zyvox for his UTI ALLERGIES Allergies Allergy/AdvReac Type Severity Reaction Status Date / Time licorice Allergy Severe Anaphylaxis Verified 01/12/25 15:13 plague vaccine Allergy extreme Verified 01/12/25 15:13 high fever zolpidem Allergy Anaphylaxis Verified 01/12/25 15:13 MEDICATIONS Ambulatory Orders Medication Instructions Recorded Confirmed albuterol sulfate 90 mcg/actuation 2 puff inhalation Q 4H PRN Wheezing 01/10/14 01/13/25 aerosol inhaler (Ventolin HFA) ##1 apixaban 5 mg tablet (Eliquis) 5 mg PO BID 07/21/20 furosemide 20 mg tablet 20 mg PO BID 01/01/21 metoprolol succinate 50 mg 50 mg PO DAILY 09/06/2105/01 tablet,extended release 24 hr atorvastatin 40 mg tablet 40 mg PO DAILY 03/14/2305/01 omeprazole magnesium 20 mg 20 mg PO DAILY 03/14/2305/01 capsule,delayed release fluticasone 250 mcg-salmeterol 50 1 puff inhalation BI D PRN 04/11/23 01/13/25 mcg/dose blistr powdr for shortness of breath or wheez ing inhalation (Advair Diskus) insulin glargine-yfgn 100 unit/mL 14 unit subcut QPM 1 01/13/25 (3 mL) subcutaneous pen (Semglee (insulin glargine-yfgn) Pen) metformin 500 mg tablet 1,000 mg PO BID 07/05/2405/01 cholecalciferol (vitamin D3) 25 1,000 unit PO DAILY 01/13/25 mcg (1,000 unit) capsule magnesium oxide 400 mg PO DAILY 07/12/2405/01 albuterol sulfate 2.5 mg/3 mL 2.5 mg inhalation Q6H ID N 01/13/25 01/13/25 (0.083 %) solution for nebulization shortness of breat h or wheezing amlodipine 5 mg tablet 7.5 mg PO DAILY 01/13/2505/01 epinephrine 0.3 mg/0.3 mL 0.3 mg IM ONCE PRN anaphylax is 01/13/25 01/13/25 injection, auto-injector (EpiPen) ipratropium 0.5 mg-albuterol 3 mg 3 ml inhalation JESS Y PRN 01/13/25 01/13/25 (2.5 mg base)/3 mL nebulization shortness of breath or wheezing soln lisinopril 20 mg tablet 20 mg PO BID 01/13/25 nitroglycerin 0.4 mg sublingual 0.4 mg sublingual Q5M PRN chest 01/13/25 01/13/25 tablet pain prednisone 5 mg tablet 5 mg PO DAILY 01/13/2501/13 spironolactone 25 mg tablet 25 mg PO DAILY 01/13/25 bisacodyl 10 mg rectal suppository 10 mg ID DAILY PRN Constipation #3 01/14/25 (Dulcolax (bisacodyl)) ea linezolid 600 mg tablet 600 mg PO BID 6 days #12 tab s 01/14/25 lorazepam 0.5 mg tablet (Ativan) 0.5 mg PO Q6H PRN Anx iety #10 tabs 01/14/25 morphine concentrate 100 mg/5 mL 5 mg (0.25 mL) PO Q4H PRN pain or 01/14/25 (20 mg/mL) oral solution breathlessness #30 mL sennosides 8.6 mg tablet (senna) 8.6 mg PO BID PRN Con stipation #10 01/14/25 tabs PHYSICAL EXAM AT DISCHARGE Vital Signs: Vital Signs x48h Temp Pulse Pulse Resp BP Pulse Ox 01/15/25 08:04 36.5 C 95 24 150/88 H 96 01/15/25 07:41 85 16 01/15/25 05:00 36.6 C 95 20 138/84 H 98 General Appearance: positive No acute distress and Alert Eyes Bilateral: positive Normal inspection ENT: positive ENT inspection nml Neck: positive Nml inspection Respiratory: positive Chest non-tender and No respiratory distress Cardiovascular: positive Regular rate & rhythm Peripheral Pulses: positive 2+ Abdomen: positive Non-tender Skin: positive Color nml Extremities: positive Non-tender Neurologic/Psychiatric: positive Sensation nml, Mood/affect nml, Disoriented to place and Disoriented to time LABS 01/13/25 04:36 01/13/25 04:36 FOLLOW UP Follow Up: With hospice TIME SPENT Time Spent in Discharge (Minutes): 35 Discharge Plan Discharge Patient Disposition: 50 Hospice/Home DC/Xfer Prescriptions: New linezolid 600 mg Tablet 600 mg PO BID 6 Days Qty: 12 0RF sennosides [senna] 8.6 mg Tablet 8.6 mg PO BID PRN (Reason: Constipation) Qty: 10 0RF Rx Instructions: Take one tablet, by mouth, twice a day as needed for constipation. morphine concentrate 100 mg/5 mL (20 mg/mL) Solution 5 mg PO Q4H PRN (Reason: pain or breathlessness) Qty: 30 0RF Rx Instructions: Take 0.25 ml (equal to 5 mg) by mouth, or under the tongue, every 4 hours as needed for moderate to severe pain. lorazepam [Ativan] 0.5 mg Tablet 0.5 mg PO Q6H PRN (Reason: Anxiety) Qty: 10 0RF Rx Instructions: Take one tablet, by mouth, every 6 hours as needed for anxiety. bisacodyl [Dulcolax (bisacodyl)] 10 mg Suppository 10 mg ID DAILY PRN (Reason: Constipation) Qty: 3 0RF Rx Instructions: Unwrap and insert one suppository rectally daily, as needed for constipation. Continued metformin 500 mg tablet 1,000 mg PO BID Patient Comments: 1000 in the am, 1000 in the evening albuterol sulfate [Ventolin HFA] 60 PUFFS/8 GM HFA aerosol inhaler 2 puff inhalation Q4H PRN (Reason: Wheezing) Qty: 1 0RF Rx Instructions: DISPENSE WITH SPACER Eliquis 5 MG tablet 5 mg PO BID furosemide 20 MG tablet 20 mg PO BID metoprolol succinate 50 MG tablet extended release 24 hr 50 mg PO DAILY atorvastatin 40 MG tablet 40 mg PO DAILY omeprazole magnesium 20 MG capsule,delayed release(DR/EC) 20 mg PO DAILY fluticasone propion-salmeterol [Advair Diskus] 1 EACH blister with device 1 puff inhalation BID PRN (Reason: shortness of breath or wheezing) cholecalciferol (vitamin D3) 25 mcg (1,000 unit) capsule 1,000 unit PO DAILY magnesium oxide 400 mg magnesium capsule 400 mg PO DAILY albuterol sulfate 2.5 mg /3 mL (0.083 %) solution for nebulization 2.5 mg inhalation Q6H PRN (Reason: shortness of breath or wheezing) amlodipine 5 mg tablet 7.5 mg PO DAILY Patient Comments: take 1 AND 1/2 tablets by mouth once daily prednisone 5 mg tablet 5 mg PO DAILY Patient Comments: take 1 tablet by mouth once daily spironolactone 25 mg tablet 25 mg PO DAILY Patient Comments: take 1 tablet by mouth once daily epinephrine [EpiPen] 0.3 mg/0.3 mL auto-injector 0.3 mg IM ONCE PRN (Reason: anaphylaxis) Rx Instructions: for 2 doses nitroglycerin 0.4 mg tablet, sublingual 0.4 mg sublingual Q5M PRN (Reason: chest pain) Rx Instructions: do not exceed 3 doses per episode ipratropium-albuterol 0.5 mg-3 mg(2.5 mg base)/3 mL solution for nebulization 3 ml inhalation DAILY PRN (Reason: shortness of breath or wheezing) lisinopril 20 mg tablet 20 mg PO BID Patient Comments: take 2 tablets by mouth every morning insulin glargine-yfgn [Semglee(insulin glarg-yfgn)Pen] 100 unit/mL (3 mL) insulin pen 14 unit subcut QPM Diet: Regular Interventions: Belongings Inventory Last Done: 01/12/25 22:23 Discharge Last Done: 01/15/25 11:30 Discharge Checklist - Nursing Last Done: 01/15/25 11:30 Health Concerns: You came into the hospital because of an acute delirium due to a UTI. Your mentation improved after fluids and antibiotics. Given your generalized decline, you are being sent to a facility where you can establish yourself with hospice. I am adding on some medications that help in the hospice process, these are to combat pain, anxiety, constipation. I am also writing you for an antibiotic to cover your UTI Print Language: [place] Stand Alone Forms: SNF Discharge, PCP List Follow-up Care: NILA DE LA ROSA ARNP [Primary Care Provider] -
== END 2025-01-15 11:20 | disposition hospice, home (50) ==
LOC: MS2 15:06 → ED 15:06 → MS2 19:13
PROVIDERS: ADMIT Internal Medicine; ATTEND Internal Medicine
DX: L89.301 Pressure ulcer of unspecified buttock, stage 1; Z51.5 Encounter for palliative care; Z74.01 Bed confinement status; N40.1 Benign prostatic hyperplasia with lower urinary tract symptoms; E83.42 Hypomagnesemia; R62.7 Adult failure to thrive; I69.354 Hemiplegia and hemiparesis following cerebral infarction affecting left non-dominant side; J44.1 Chronic obstructive pulmonary disease with (acute) exacerbation; Z79.899 Other long term (current) drug therapy; Z79.4 Long term (current) use of insulin; F03.90 Unspecified dementia, unspecified severity, without behavioral disturbance, psychotic disturbance, mood disturbance, and anxiety; R63.8 Other symptoms and signs concerning food and fluid intake; Z79.84 Long term (current) use of oral hypoglycemic drugs; I48.20 Chronic atrial fibrillation, unspecified; Z11.52 Encounter for screening for COVID-19; Z68.24 Body mass index [BMI] 24.0-24.9, adult; N10 Acute pyelonephritis; G93.41 Metabolic encephalopathy; Z87.891 Personal history of nicotine dependence; E11.9 Type 2 diabetes mellitus without complications; Z79.01 Long term (current) use of anticoagulants; I10 Essential (primary) hypertension